=== PATIENT | male | born 1950 | race Caucasian/White ===

== ENCOUNTER → 2021-09-07 14:39 | Outpatient (BNVA) | payer MEDICARE, SELFPAY | PROVIDERS: PCP Nurse Practitioner Family; Referring Provider Nurse Practitioner Family; Visit Provider Internal Medicine Cardiovascular Disease | DX: I50.20 Unspecified systolic (congestive) heart failure (principal); I25.10 Atherosclerotic heart disease of native coronary artery without angina pectoris; Z95.810 Presence of automatic (implantable) cardiac defibrillator | CPT/HCPCS: 93005; 99202 ==

== ENCOUNTER 2021-09-08 08:16 | Outpatient (REF) | payer MEDICARE, SELFPAY ==
--- NOTE | ~2021-09-08 | XR_ITS ---
EXAMINATION: XR CHEST 2 VIEWS CLINICAL INFORMATION: Status post-post AICD placement. COMPARISON: Chest radiographs dated 04/10/2017 and 03/12/2017. TECHNIQUE: Frontal and lateral views of the chest were obtained. FINDINGS: The heart, great vessels and mediastinum are normal. Central pulmonary vasculature appears stable. There is interim placement of a dual-lead, dual-chamber pacemaker/defibrillator, without lead fracture noted. The lungs show no focal infiltrate, effusion or pneumothorax. There is no acute osseous abnormality. Orthopedic anchors are applied to the bilateral humeral heads. XR/XR chest 2V IMPRESSION: No active cardiopulmonary disease. No pneumothorax is seen status-post AICD placement.
[2021-09-08 09:15] LABS: Hematocrit 39.2 % (42.0-52.0); Hemoglobin 12.8 g/dl (14.0-18.0); Mean Corpuscular HGB Conc 32.7 g/dl (31.0-36.0); Platelet Count 135 X10*3/uL (160-400); Red Blood Count 4.26 X10*6/uL (4.60-5.80); Red Cell Distribution Width 13.1 % (11.0-16.0); White Blood Count 6.2 X10*3/uL (4.8-10.8)
[2021-09-08 09:35] LABS: Anion Gap 12 (12-20); Blood Urea Nitrogen 31 mg/dL (9-16); Calcium 9.5 mg/dL (8.4-10.2); Carbon Dioxide 30 mmol/L (22-29); Chloride 105 mmol/L (96-108); Cholesterol 101 mg/dL; Estimated Glomerular Filt Rate 58; Glucose Random 116 mg/dL (60-115); HDL Cholesterol 26 mg/dL; LDL Cholesterol Calculated 46 mg/dl; Magnesium 2.4 mg/dL (1.6-2.6); Potassium 4.1 mmol/L (3.3-5.1); Sodium 143 mmol/L (135-145); Triglycerides 146 mg/dL
[2021-09-08 09:45] LABS: B Type Natriuretic Peptide 394 pg/mL (<100)
[2021-09-08 09:57] LABS: Prostate Specific Antigen Scr 1.35 ng/mL (<0.05-4.0)
[2021-09-08 10:11] LABS: Appearance Urine CLEAR; Color Urine YELLOW; Glucose Urine UA NEG (NEG); Leukocyte Esterase Urine NEG (NEG); Nitrite Urine NEG (NEG); Urine Blood NEG (NEG); Urine Ketones NEG (NEG); Urine Protein NEG (NEG-TRACE)
== END 2021-09-08 08:17 | disposition home or self-care (01) ==
LOC: HO.LAB 08:16
PROVIDERS: PCP Nurse Practitioner Family; Visit Provider Internal Medicine Cardiovascular Disease
DX: Z12.5 Encounter for screening for malignant neoplasm of prostate (principal); I11.0 Hypertensive heart disease with heart failure; I50.40 Unspecified combined systolic (congestive) and diastolic (congestive) heart failure; I25.10 Atherosclerotic heart disease of native coronary artery without angina pectoris; Z95.810 Presence of automatic (implantable) cardiac defibrillator
CPT/HCPCS: 36415; 71046; 80048; 80061; 81003; 83735; 83880; 84153; 84443; 85027

== ENCOUNTER → 2021-10-07 14:58 | Outpatient (REF) | payer MEDICARE, SELFPAY ==
--- NOTE | 2021-10-07 15:04 | CA_ITS ---
Transthoracic Echocardiogram Amended Patient (Last, First, Middle): Kevin Aguero, Gender: Male Date of : 1950 Age: 70 Procedure Date: 10/07/2021 Procedure Type: Transthoracic Echocardiogram Location: OP Height: 180.34 cm Weight: 98.88 kg BSA: 2.19 m2 Heart Rate: bpm BP: 122 / 60 mmHg Observatory Director: Referring MD: Mark Jules MD Log Buyer: Mark Jules MD Symptoms: I50.20 - Unspecified systolic (congestive) heart failure Study Quality: Fair/DEFINITY USED ECG Rhythm: Sinus Conclusions: - 1. Severe LV systolic dysfunction with LVEF of 20-25% with mildly dilated left ventricle cavity with grade 3 diastolic dysfunction with underlying regional wall motion abnormality suggestive ischemic cardiomyopathy 2. Moderately dilated left atrium 3. Moderate mitral regurgitation 4. Normal RV systolic pressure 5. No pericardial effusion Findings Procedure Information Contrast agent, definity, is being given per protocol without apparent complications. Left Ventricle Mildly increased left ventricular cavity size. There is normal left ventricular wall thickness. The left ventricular systolic function is severely decreased. The visually estimated ejection fraction is between 20 25%. Spectral Doppler is indicative of a restrictive filling pattern. E/E prime ratio is >15, consistent with elevated filling pressures. Evidence suggests grade III (severe) diastolic dysfunction. Wall Motion Rest Echo Findings The entire lateral wall, the basal inferior, basal anterior, mid anterior, and mid inferior segments are hypokinetic. The entire septum, the apical anterior, and apical inferior segments are akinetic. The apex segment is dyskinetic. Right Ventricle Normal right ventricular cavity size and systolic function. There is an ICD wire seen in the right ventricle. Atria The left atrium is moderately dilated. Interatrial shunt cannot be excluded. The right atrium is mildly dilated. Aortic Valve There is mild calcification of the aortic valve. There is mild thickening of the aortic valve. There is no aortic valve stenosis. There is trace (trivial) aortic valve regurgitation. Mitral Valve There is mild anterior and posterior mitral leaflet thickening. There is moderate mitral valve regurgitation. There is no mitral valve stenosis. There is mild mitral annular dilatation. Pulmonic Valve The pulmonic valve was not well visualized. Tricuspid Valve Likely normal tricuspid valve structure and function. There is mild tricuspid valve regurgitation. The right ventricular systolic pressure is normal. There is no evidence of pulmonary hypertension. Great Vessels All visible segments of the aorta are normal in size. The pulmonary artery was not well visualized. Venous The inferior vena cava is normal in size and collapses greater than 50% with inspiration. Pericardium/Pleural There is no evidence of pericardial effusion. Prior Study Comparison No prior study available for comparison. Measurements 2D Linear Measurements IVSd: 0.83 0.6-0.9/0.6-1.0 cm LVIDd: 6.11 3.9-5.3/4.2-5.9 cm LVIDd Index: 2.79 2.4-3.2/2.2-3.1 cm/m2 LVIDs: 4.84 2.0-3.6 cm LVPWd: 0.87 0.7-1.1 cm Ao Root: 3.00 2.1-3.5 cm LA Diam: 5.40 2.7-3.8/3.0-4.0 cm LAIDs Index: 2.47 1.5-2.3 cm/m2 LV Mass: 258.59 67-162/88-224 g LV Mass Index: 118.08 43-95/49-115 g/m2 LVOT Diam: 2.40 3.0+(-)1.3 cm 2D Volumes LA Vol: 65.80 2D Systolic Function EF 4C: 22.40 >55% EF 2C: 21.30 >55% EF BiP: 22.10 >55% Mitral Valve MV Pk E: 0.85 MV Decel Time: 260.00 E'Lateral: 8.70 E'Medial: 4.24 E/E' Med: 20.10 E/E' Lat: 9.80 PHT: 76.00 MVA PHT: 2.89 Decel [place]: 3.28 Aortic Valve AoV Pk [place]: 2.09 AoV Mn [place]: 1.18 AoV VTI: 0.36 AoV Pk Grad: 17.00 Aov Mn Grad: 7.00 ALYSSA Cont.VTI: 2.10 LVOT LVOT Pk [place]: 0.82 LVOT Mn [place]: 0.50 LVOT VTI: 0.17 LVOT Pk Grad: 3.00 LVOT Mn Grad: 1.00 LVOT Diam: 2.40 LVOT Area: 4.52 Diastolic Function MV Pk E: 0.85 E'Medial: 4.24 E/E' Med: 20.10 E' Laterial: 8.70 E/E' Lat: 9.80 Right Ventricle TAPSE (mm): 17.00 Tricuspid Valve TR Pk [place]: 2.94 TR Pk Grad: 35.00 RA Press: 3.00 RVSP: 38.00 Great Vessels Aorta Ao Root-2D: 3.00 2.0-3.7 cm Sinus of Valsalva: 3.00 2.0-3.5 cm Pulmonary Valve PV Pk [place]: 0.98 Peak PV Grad: 4.00 Updated in Other Vendor System with Status of Final Mark Jules MD electronically signed on 10/16/2021 2:29:18 PM with status of Final
== END ==
LOC: HO.CARD 14:58
PROVIDERS: PCP Nurse Practitioner Family; Visit Provider Internal Medicine Cardiovascular Disease
DX: I50.20 Unspecified systolic (congestive) heart failure (principal)
CPT/HCPCS: 93306; Q9957

== ENCOUNTER → 2021-10-16 10:23 | Outpatient (BNVA) | payer MEDICARE, SELFPAY | PROVIDERS: PCP Nurse Practitioner Family; Referring Provider Nurse Practitioner Family; Visit Provider Internal Medicine Cardiovascular Disease | DX: Z45.02 Encounter for adjustment and management of automatic implantable cardiac defibrillator (principal); I50.20 Unspecified systolic (congestive) heart failure; I25.10 Atherosclerotic heart disease of native coronary artery without angina pectoris | CPT/HCPCS: 99212 ==

== ENCOUNTER 2021-11-02 12:42 | Outpatient (REF) | payer MEDICARE, SELFPAY ==
[2021-11-02 14:08] LABS: Anion Gap 13 (12-20); Blood Urea Nitrogen 24 mg/dL (9-16); Calcium 9.8 mg/dL (8.4-10.2); Carbon Dioxide 24 mmol/L (22-29); Chloride 107 mmol/L (96-108); Estimated Glomerular Filt Rate 47; Glucose Random 111 mg/dL (60-115); Potassium 4.4 mmol/L (3.3-5.1); Sodium 140 mmol/L (135-145)
== END 2021-11-02 12:43 | disposition home or self-care (01) ==
LOC: HO.HMGCLDS 12:42
PROVIDERS: Absent Provider Internal Medicine Cardiovascular Disease; PCP Nurse Practitioner Family; Visit Provider Nurse Practitioner Family
DX: I50.20 Unspecified systolic (congestive) heart failure (principal)
CPT/HCPCS: 36415; 80048

== ENCOUNTER 2022-01-01 13:44 | Outpatient (REF) | payer MEDICARE, SELFPAY ==
--- NOTE | ~2022-01-01 | XR_ITS ---
EXAMINATION: XR KNEE, RIGHT CLINICAL INFORMATION: M25.561 - Pain in right knee COMPARISON: Standing AP knees and left knee radiographs 08/04/2015. TECHNIQUE: Four views of the right knee. FINDINGS: No fracture, dislocation, or definite effusion. No destructive process. Hoffa's fat pad appears normal. No significant joint narrowing and no erosive change or chondrocalcinosis. No lateralization or tilting patella. XR/XR knee RT 3V IMPRESSION: -No significant joint narrowing. No erosive change or chondrocalcinosis.
== END 2022-01-01 13:45 | disposition home or self-care (01) ==
LOC: HO.XRAY 13:44
PROVIDERS: PCP Nurse Practitioner Family; Visit Provider Nurse Practitioner Family
DX: M25.561 Pain in right knee (principal)
CPT/HCPCS: 73562

== ENCOUNTER 2022-05-05 12:04 | Outpatient (REF) | payer MEDICARE, SELFPAY ==
[2022-05-05 13:39] LABS: B Type Natriuretic Peptide 175 pg/mL (<100)
[2022-05-05 13:43] LABS: Anion Gap 17 (12-20); Blood Urea Nitrogen 27 mg/dL (9-16); Calcium 9.8 mg/dL (8.4-10.2); Carbon Dioxide 26 mmol/L (22-29); Chloride 103 mmol/L (96-108); Estimated Glomerular Filt Rate 45; Glucose Random 111 mg/dL (60-115); Sodium 141 mmol/L (135-145)
== END 2022-05-05 12:05 | disposition home or self-care (01) ==
LOC: HO.LAB 12:04
PROVIDERS: PCP Nurse Practitioner Family; Visit Provider Internal Medicine Cardiovascular Disease
DX: I48.0 Paroxysmal atrial fibrillation (principal); I50.20 Unspecified systolic (congestive) heart failure; I25.10 Atherosclerotic heart disease of native coronary artery without angina pectoris; Z95.810 Presence of automatic (implantable) cardiac defibrillator
CPT/HCPCS: 36415; 80048; 83880; 99212

== ENCOUNTER 2022-05-10 10:59 | Outpatient (REF) | payer MEDICARE, SELFPAY ==
[2022-05-10 14:01] LABS: MANUAL DIFF FLAG NO
[2022-05-10 14:07] LABS: Basophils Percent Auto 0.8 % (0-2); Eosinophils Absolute Auto 0.1 X10*3/uL (0.0-0.4); Eosinophils Percent Auto 2.7 % (0-4); Hematocrit 41.7 % (42.0-52.0); Hemoglobin 13.8 g/dl (14.0-18.0); Imm Gran Abs Auto 0.09 X10*3/uL (0.00-0.03); Imm Gran Pct Auto 1.8 % (0.0-0.4); Lymphocytes Absolute Auto 1.2 X10*3/uL (1.2-4.9); Lymphocytes Percent Auto 23.6 % (20-40); Mean Corpuscular HGB Conc 33.1 g/dl (31.0-36.0); Mean Corpuscular Hemoglobin 30.2 pg (27.0-33.0); Mean Corpuscular Volume 91.2 fL (80.0-98.0); Mean Platelet Volume 11.4 fL (9.4-12.4); Monocytes Absolute Auto 0.9 X10*3/uL (0.1-1.2); Monocytes Percent Auto 18.7 % (2-11); Neutrophils Absolute Auto 2.6 x10*3/uL (2.0-8.3); Neutrophils Percent Auto 52.4 % (45-73); Platelet Count 115 X10*3/uL (160-400); Red Blood Count 4.57 X10*6/uL (4.60-5.80); Red Cell Distribution Width 13.4 % (11.0-16.0); White Blood Count 4.9 X10*3/uL (4.8-10.8)
[2022-05-10 14:11] LABS: Appearance Urine Clear; Glucose Urine UA Negative (Negative); Leukocyte Esterase Urine Negative (Negative); Nitrite Urine Negative (Negative); PH 5.5 (5.0-9.0); Urine Blood Negative (Negative); Urine Ketones Negative (Negative); Urine Protein Negative (Neg-Trace)
[2022-05-10 14:13] LABS: Color Urine COLORLESS
[2022-05-10 14:26] LABS: Alanine Aminotransferase 17 U/L (0-40); Albumin Level 4.5 g/dL (3.5-5.0); Alkaline Phosphatase 44 U/L (39-117); Anion Gap 16 (12-20); Aspartate Amino Transferase 16 U/L (5-37); Bilirubin Total 0.7 mg/dL (0.0-1.0); Blood Urea Nitrogen 31 mg/dL (9-16); Calcium 9.1 mg/dL (8.4-10.2); Carbon Dioxide 24 mmol/L (22-29); Chloride 106 mmol/L (96-108); Cholesterol 101 mg/dL; Estimated Glomerular Filt Rate 49; Glucose Fasting 124 mg/dL (60-99); HDL Cholesterol 28 mg/dL; LDL Cholesterol Calculated 40 mg/dl; Potassium 4.2 mmol/L (3.3-5.1); Sodium 142 mmol/L (135-145); Total Protein 7.2 g/dL (6.5-8.0); Triglycerides 168 mg/dL
[2022-05-10 14:47] LABS: TSH reflex Free T4 0.72 uIU/mL (0.32-4.0)
== END 2022-05-10 11:00 | disposition home or self-care (01) ==
LOC: HO.HMGCLDS 10:59
PROVIDERS: PCP Nurse Practitioner Family; Visit Provider Nurse Practitioner Family
DX: I10 Essential (primary) hypertension (principal)
CPT/HCPCS: 36415; 80053; 80061; 81003; 84443; 85025

== ENCOUNTER → 2022-11-08 12:14 | Outpatient (BNVA) | payer MEDICARE, SELFPAY | PROVIDERS: PCP Nurse Practitioner Family; Referring Provider Nurse Practitioner Family; Visit Provider Internal Medicine Cardiovascular Disease | DX: I50.20 Unspecified systolic (congestive) heart failure (principal); I48.0 Paroxysmal atrial fibrillation; I25.10 Atherosclerotic heart disease of native coronary artery without angina pectoris; Z45.02 Encounter for adjustment and management of automatic implantable cardiac defibrillator | CPT/HCPCS: 93005; 99212 ==

== ENCOUNTER → 2022-11-19 13:45 | Outpatient (REF) | payer MEDICARE, SELFPAY ==
--- NOTE | 2022-11-19 13:48 | CA_ITS ---
Transthoracic Echocardiogram Patient (Last, First, Middle): Kevin Aguero, Gender: Male Date of : 1950 Age: 72 Procedure Date: 11/19/2022 Procedure Type: Transthoracic Echocardiogram Location: OP Height: 182.88 cm Weight: 97.98 kg BSA: 2.20 m2 Heart Rate: 73 bpm BP: 118 / 70 mmHg Patching Machine Operator: SB Referring MD: Mark Jules MD Symptoms: I50.20 - Unspecified systolic (congestive) heart failure Study Quality: Adequate w contrast ECG Rhythm: Sinus Conclusions: - Mildly increased left ventricular cavity size. There is normal left ventricular wall thickness. The left ventricular systolic function is severely decreased. The visually estimated ejection fraction is between 15-20%. There is severe global hypokinesis. - Normal right ventricular cavity size. There is borderline right ventricular systolic function. - The left atrium is severely dilated. - There is mild to moderate mitral valve regurgitation. Findings Procedure Information Contrast agent, definity, is being given per protocol without apparent complications. Left Ventricle Mildly increased left ventricular cavity size. There is normal left ventricular wall thickness. The left ventricular systolic function is severely decreased. The visually estimated ejection fraction is between 15 20%. There is severe global hypokinesis. Abnormal diastolic function is noted. Spectral Doppler is indicative of a restrictive filling pattern. Elevated filling pressures. Right Ventricle Normal right ventricular cavity size. There is borderline right ventricular systolic function. There is a pacemaker wire seen in the right ventricle. Atria The left atrium is severely dilated. The right atrium is likely dilated. Aortic Valve There is a normal trileaflet aortic valve. There is mild calcification of the aortic valve. There is no aortic valve stenosis. There is trace (trivial) aortic valve regurgitation. Mitral Valve Normal mitral valve structure and function. There is mild to moderate mitral valve regurgitation. There is no mitral valve stenosis. Pulmonic Valve There is trace pulmonic valve regurgitation. Tricuspid Valve Normal tricuspid valve structure and function. There is no evidence of pulmonary hypertension. Great Vessels All visible segments of the aorta are normal in size. The visualized portions of the pulmonary artery and branches are normal. Venous The inferior vena cava is normal in size and collapses greater than 50% with inspiration. Pericardium/Pleural There is no evidence of pericardial effusion. Prior Study Comparison Changes noted compared to prior study dated: 10/07/2021. EF 15-20%, Borderline RV dysfunction, severely dilated LA. Measurements 2D Linear Measurements IVSd: 0.79 0.6-0.9/0.6-1.0 cm LVIDd: 6.43 3.9-5.3/4.2-5.9 cm LVIDd Index: 2.92 2.4-3.2/2.2-3.1 cm/m2 LVIDs: 5.63 2.0-3.6 cm LVPWd: 0.80 0.7-1.1 cm LA Diam: 5.10 2.7-3.8/3.0-4.0 cm LAIDs Index: 2.32 1.5-2.3 cm/m2 LV Mass: 260.20 67-162/88-224 g LV Mass Index: 118.27 43-95/49-115 g/m2 LVOT Diam: 2.30 3.0+(-)1.3 cm 2D Systolic Function EF 4C: 33.80 >55% EF 2C: 16.40 >55% EF BiP: 27.20 >55% Mitral Valve MV Pk E: 0.87 MV PK A: 0.35 MV Decel Time: 146.00 E/A: 2.50 E'Lateral: 8.10 E'Medial: 3.75 E/E' Med: 23.10 E/E' Lat: 10.70 PHT: 43.00 MVA PHT: 5.12 Decel [place]: 5.91 Aortic Valve AoV Pk [place]: 1.74 AoV Mn [place]: 1.29 AoV VTI: 0.35 AoV Pk Grad: 12.00 Aov Mn Grad: 8.00 ALYSSA Cont.VTI: 2.25 LVOT LVOT Pk [place]: 1.05 LVOT Mn [place]: 0.69 LVOT VTI: 0.19 LVOT Pk Grad: 4.00 LVOT Mn Grad: 2.00 LVOT Diam: 2.30 LVOT Area: 4.15 Diastolic Function MV Pk E: 0.87 MV Pk A: 0.35 E/A: 2.50 E'Medial: 3.75 E/E' Med: 23.10 E' Laterial: 8.10 E/E' Lat: 10.70 Right Ventricle TAPSE (mm): 16.50 TVS' [place]: 11.30 Tricuspid Valve TR Pk [place]: 2.88 TR Pk Grad: 33.00 RA Press: 3.00 RVSP: 36.00 Great Vessels Aorta Sinus of Valsalva: 2.80 2.0-3.5 cm Ao Asc: 3.30 2.1-3.4 cm Pulmonary Veins Pulm Vein S/D 1.80 Pulmonary Valve PV Pk [place]: 0.92 Peak PV Grad: 3.00 Updated in Other Vendor System with Status of Final Óscar Pacheco MD electronically signed on 11/21/2022 8:30:45 PM with status of Final
== END ==
LOC: HO.CARD 13:45
PROVIDERS: PCP Nurse Practitioner Family; Visit Provider Internal Medicine Cardiovascular Disease
DX: I50.20 Unspecified systolic (congestive) heart failure (principal)
CPT/HCPCS: 93306; Q9957

== ENCOUNTER → 2023-01-23 23:59 | Outpatient (BNV) | payer MEDICARE, SELFPAY ==
--- NOTE | 2023-02-02 15:00 | A.OFFVIS_ITS ---
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, major, in remission Fatty liver GERD (gastroesophageal reflux disease) Hypothyroid ICD (implantable cardioverter-defibrillator) in place Macular degeneration of right eye Metal foreign body in lower leg Myocardial infarct Paroxysmal atrial fibrillation Systolic CHF Thrombocytopenia Social History [facility] Patient Tobacco Use Status: Former Tobacco user Years Smoked: quit 40 years ago e-Cigarette/Vaping Use: Never Used Second Hand Smoke Exposure: No service: No Current occupational status: retired Cognitive needs: No Hearing needs: No Vision needs: No Office Procedures Cardiac Device Check Cardiac Device Check Details: Remote ICD report generated 01/23/2023. ICD function is adequate [id number] Cardiac Interrogation, implant defibrillator w/interim Procedure code (CPT) selection complete Coding Level of Care Code Procedure Only Diagnoses CPT Codes Cardiac Device Check - Cardiac Device 13: [id number] Cardiac Interrogation, implant defibrillator w/interim ([id number])
== END ==
PROVIDERS: PCP Nurse Practitioner Family; Visit Provider Internal Medicine Cardiovascular Disease
DX: I48.0 Paroxysmal atrial fibrillation (principal); Z95.810 Presence of automatic (implantable) cardiac defibrillator
CPT/HCPCS: 93295

== ENCOUNTER → 2023-02-02 13:25 | Outpatient (BNVA) | payer MEDICARE, SELFPAY | PROVIDERS: PCP Nurse Practitioner Family; Visit Provider Nurse Practitioner Family ==

== ENCOUNTER 2023-03-16 13:23 | Outpatient (AMB) | payer MEDICARE, SELFPAY ==
[2023-03-16 13:31] VITALS: BP 98/62; PULSE 64; O2SAT 97
--- NOTE | 2023-03-16 13:31 | AM.OFFVISMDC ---
Intake Vital Signs 03/16/23 13:31 Height 6 ft 0.5 in Weight 224 lb 6 oz BMI 30.0 BP 98/62 Blood Pressure Location Lt brachial Position Sitting Pulse 64 Pulse Source Pulse Oximeter Pulse Oximetry (%) 97 Oxygen Delivery Method Room Air Intake Visit Reasons: AWV G0438 Allergies No Known Allergies Allergy (Verified 03/16/23 13:33) HPI AWV G0438 HPI Details Pt is here for an AWV. Denies fever, chills, and dizziness. [place] of care in scan pile. PPP will be scanned in chart and copy will be given to pt. 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, major, in remission Fatty liver GERD (gastroesophageal reflux disease) Hypothyroid ICD (implantable cardioverter-defibrillator) in place Macular degeneration of right eye Metal foreign body in lower leg Myocardial infarct Paroxysmal atrial fibrillation Systolic CHF Thrombocytopenia Social History Housing: Condominium Patient Tobacco Use Status: Former Tobacco user Years Smoked: quit 40 years ago e-Cigarette/Vaping Use: Never Used Second Hand Smoke Exposure: No service: No Current occupational status: retired Cognitive needs: No Hearing needs: No Vision needs: No Questionnaire Medicare Wellness Checkup [age] What gender do you identify with?: male During the past 4 weeks, how much have you been bothered by emotional problems such as feeling anxious, depressed, irritable, sad or downhearted, and blue?: not at all During the past 4 weeks, has your physical & emotional health limited your social activities with family, friends, neighbors, or groups?: not at all During the past 4 weeks, how much bodily pain have you generally had?: no pain During the past 4 weeks, was someone available to help you if you needed & wanted help?: yes, as much as I wanted During the past 4 weeks, what was the hardest physical activity you could do for at least 2 minutes?: very heavy Can you get to places out of walking distance without help? (For eg., can you travel alone on buses, taxis or drive your car?): Yes Can you go shopping for groceries or clothes without someone's help?: Yes Can you prepare your own meals?: Yes Can you do your housework without help?: Yes Because of any health problems, do you need the help of another person with your personal care needs such as eating, bathing, dressing or getting around the house?: No Can you handle your own money without help?: Yes During the past 4 weeks, how would you rate your health in general?: very good During the past 4 weeks how have things been going for you?: very well; could hardly better Are you having difficulties driving your car?: yes, often Do you always fasten your seat belt when you are in a car?: yes, usually During past 4 weeks, have you been bothered by the following: never: Falling or dizzy when standing up, Sexual problems?, Trouble eating well?, Teeth or denture problems?, Problems using the telephone? and Tiredness or fatigue? Have you fallen 2 or more times in the past year?: No Are you afraid of falling?: No Are you a smoker?: no During the past 4 weeks, how many drinks of wine, beer, or other alcoholic beverages did you have?: no alcohol at all Do you exercise for about 20 minutes 3 or more times a week?: no, I usually do not exercise this much Have you been given information to help with the following?: no: Hazards in your house that might hurt you? and no: Keeping track of your medications? How often do you have trouble taking medicines the way you have been told to take them?: I always take medicine as prescribed How confident are you that you can control & manage most of your health problems?: very confident What is your race?: White Mini Mental State Exam (MMSE) Orientation What is the (year) (season) (date) (day) (month)?: year (2022) Where are we (state) (county) (town or city) (hospital) (floor[place] Registration Name of 3 unrelated objects clearly and slowly, then ask patient to repeat all 3 of them. (1st repeat determines score. Make sure they can repeat all three): object 1, object 2 and object 3 Attention & Calculation (CHOOSE ONE) Spell WORLD backwards (DLROW): 5 letters Recall Ask patient to repeat the 3 items from question #3.: object 1, object 2 and object 3 Language Show patient a wristwatch & ask what it is. Repeat for pencil.: watch and pencil Ask the patient to repeat the phrase 'No ifs, ands, or buts' after you.: correct Ask the patient to 'take a piece of paper with their right hand' 'fold paper in half' 'place paper on floor': take paper in right hand, fold paper in half and place paper on floor Print the sentence 'CLOSE YOUR EYES' on a piece. If patient actually closes eyes then score.: followed written direction Give patient a blank piece of paper & ask to write a sentence. Score if it contains a noun & verb.: sentence contains subject and verb Ask patient to copy figure of intersecting pentagons exactly. Score if all 10 angles & 2 intersects are included.: all 10 angles present & 2 are intersected Score Score: 22 Activity of Daily Living Bathing - sponge bath, tub bath or shower: receives no assistance (gets in/out by self, if usual bathing means Dressing - getting clothes from closets & drawers, including inner/outer garments & fasteners.: gets clothes & gets completely dressed without help Toileting - going to the 'toilet room' for urine/bowel elimination & cleaning self/arranging clothes: goes to toilet room, cleans self, arranges clothes without help Transfer: moves in & out of bed and chair without help (may use support object) Continence: controls urination/bowel movements completely by self Feeding: feeds self without help Total Score: 0 Information obtained from: patient Using telephone: independent Traveling: independent Shopping: independent Preparing meals: independent Housework: independent Taking medicine: independent Managing money: independent PHQ-9 Over the last 2 weeks, how often have you been bothered by any of the following problems? 1. Little interest or pleasure in doing things: not at all 2. Feeling down, depressed, or hopeless: not at all 3. Trouble falling or staying asleep, or sleeping too much: not at all 4. Feeling tired or having little energy: not at all 5. Poor appetite or overeating: not at all 6. Feeling bad about yourself - or that you are a failure or have let yourself or your family down: not at all 7. Trouble concentrating on things, such as reading the newspaper or watching television: not at all 8. Moving or speaking so slowly that other people could have noticed. Or the opposite - being so fidgety or restless that you have been moving around a lot more than usual: not at all 9. Thoughts that you would be better off or of hurting yourself in some way: not at all Total score: 0 Depression Screening Interpretation: Negative 56967 - PHQ-9 Billing: Yes Source: Developed by Drs. Kevin Castaneda, Sofya Eastman, Rj Clemens and colleagues, with an educational kimi from [employer]. Review of Systems Const Reports as per HPI Physical Exam Vital Signs: Last Vital Signs Pulse 64 03/16/23 13:31 BP 98/62 03/16/23 13:31 Pulse Ox 97 03/16/23 13:31 Oxygen Delivery Method Room Air 03/16/23 13:31 BMI result Body Mass Index 30.0 Const General: cooperative Orientation/consciousness: patient oriented x3 Neuro Other: - romberg, unable to tandem walk, can walk and turn, can rise from sitting to standing, passed whisper test General: patient oriented x3 Psych Appearance: grossly normal Mental Status: mental status grossly normal Speech and movement: Normal speech and movement present Affect: normal affect Attitude: cooperative Thought process: Normal thought process present Thought content: Normal thought content present Insight: Good insight present (Psych) Judgement: Good judgement present (Psych) Assessment & Plan Assessment & Plan (1) Hearing loss: Code(s): H91.90 - Unspecified hearing loss, unspecified ear (2) Encounter for annual wellness visit (AWV) in Medicare patient: Code(s): Z00.00 - Encounter for general adult medical examination without abnormal findings Plan The patient agreed to the use of a medical office professional instructor for this encounter. Scribed for RENEE Whalen by Becca Kim medical office professional instructor, on 03/16/2023 at 13:40 EST. Orders: Referrals Speech and Hearing Referral H91.90 - Unspecified hearing loss, unspecified ear Quality Reporting (2019) Adult ([facility] 138/08/25/68) Smoking risk assessment performed?: Yes Patient Tobacco Use Status: Former Tobacco user Depression screening performed: Yes Systolic BP not done?: No Diastolic BP not done?: No Depression/Bipolar (159/160/161/177) PHQ-9: Total score: 0 Coding Level of Care Code Medicare First (G0438) Diagnoses Hearing loss H91.90 Encounter for annual wellness visit (AWV) in Medicare patient Z00.00 Advance Care Planning Forms completed: Health Care Proxy (done), MOLST (filled out) and Living will (pt has done)
== END 2023-03-16 14:30 | disposition home or self-care (01) ==
PROVIDERS: Visit Provider Nurse Practitioner Family
DX: Z00.00 Encounter for general adult medical examination without abnormal findings (principal)
CPT/HCPCS: G0438; G0439

== ENCOUNTER 2023-04-09 13:06 | Inpatient (IN) | payer MEDICARE, SELFPAY ==
[2023-04-09] VITALS (9 sets, daily range): BP systolic 85–116; BP diastolic 49–64; PULSE 60–94; RESP 12–19; TEMP 36.1–36.8; O2SAT 95–99; BMI 30.2
--- NOTE | 2023-04-09 13:32 | ED.DIZZY ---
HPI - Dizziness General Chief Complaint: Syncope Stated Complaint: dizzy/ weakness Time Seen by Provider: 04/09/23 16:23 Source: patient and family Mode of arrival: ambulatory Limitations: no limitations History of Present Illness HPI Narrative: 72 yo male with history of PAF on Eliquis, HFrEF s/p AICD, HTN, who presents to the ER for evaluation of dizziness that started this morning when he woke up. He went back to bed but no improvement. Later in the kitchen he was trying to blow his nose when he woke up on the floor. Unable to get BP at home, read error x4. Did not eat or take his BP pills yet today. He reports tailbone pain s/p the fall. Reports intermittent ongoing dizziness w/ position changes. Patient declined any weakness or numbness. Related Data Home Medications Medication Instructions Recorded Confirmed furosemide 20 mg tablet 30 mg PO DAILY 11/08/22 11/08/22 docusate sodium 100 mg capsule 100 mg PO BEDTIME PRN 03/16/23 Previous Rx's Medication Instructions Recorded mirtazapine 15 mg tablet 15 mg PO BEDTIME 90 days #90 tabs 07/29/21 betamethasone dipropionate 0.05 % 1 appl topical BID PRN skin 02/17/22 topical cream irritation #45 grams metoprolol succinate 25 mg 25 mg PO DAILY 90 days #90 tabs 06/18/22 tablet,extended release 24 hr sacubitril 49 mg-valsartan 51 mg 1 tab PO BID 90 days #180 tabs 08/25/22 tablet (Entresto) omeprazole 20 mg capsule,delayed 20 mg PO DAILY 90 days #90 caps 08/30/22 release spironolactone 25 mg tablet 12.5 mg (1/2 x 25 mg) PO DAILY 90 09/15/22 days #45 tabs apixaban 5 mg tablet (Eliquis) 5 mg PO BID #60 tabs 11/08/22 tamsulosin 0.4 mg capsule 0.4 mg PO BEDTIME 90 days #90 caps 11/12/22 sertraline 100 mg tablet 150 mg (1.5 x 100 mg) PO DAILY 90 01/21/23 days #135 tabs bisacodyl 5 mg tablet,delayed 10 mg (2 x 5 mg) PO ONCE 1 day #2 02/02/23 release (Dulcolax (bisacodyl)) tabs polyethylene glycol 3350 17 238 g PO ONCE #238 grams 02/02/23 gram/dose oral powder (Miralax) atorvastatin 80 mg tablet 80 mg PO BEDTIME 90 days #90 tabs 03/28/23 ezetimibe 10 mg tablet 10 mg PO DAILY 90 days #90 tabs 03/28/23 levothyroxine 125 mcg tablet 125 mcg PO DAILY 90 days #90 tabs 03/28/23 Allergies Allergy/AdvReac Type Severity Reaction Status Date / Time No Known Allergies Allergy Verified 04/09/23 13:31 Review of Systems Review of Systems: All other systems are reviewed and are negative Constitutional: Reports as per HPI and Reports no additional constitutional complaints Eyes: Reports as per HPI and Reports no additional eye complaints Reports system reviewed and no additional complaints, except as documented Cardiovascular: Reports as per HPI and Reports no additional cardiovascular complaints Respiratory: Reports as per HPI and Reports no additional respiratory complaints Gastrointestinal: Reports as per HPI and Reports no additional gastrointestinal complaints Genitourinary: Reports no additional female genitourinary complaints Musculoskeletal: Reports no additional musculoskeletal complaints Skin/Breast: Reports system reviewed and no additional complaints, except as docu Psychiatric: Reports no additional psychiatric complaints Endocrine: Reports no additional endocrine complaints Hematologic/Lymphatic: Reports no additional hematologic/lymphatic complaints Allergic/Immunologic: Reports no additional allergic/immunologic complaints Reports system reviewed and no additional complaints, except as documented and Reports Abnormal speech present [facility] Past Medical History Medical History Paroxysmal atrial fibrillation Thrombocytopenia Systolic CHF Fatty liver Macular degeneration of right eye ICD (implantable cardioverter-defibrillator) in place Hypothyroid GERD (gastroesophageal reflux disease) Depression, major, 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 Congenital bilateral renal cysts Chronic renal insufficiency, stage IV (severe) BPH (benign prostatic hyperplasia) ASHD (arteriosclerotic heart disease) Metal foreign body in lower leg Myocardial infarct Social History Social History [facility] Patient Tobacco Use Status: Former Tobacco user Years Smoked: quit 40 years ago Smoked in Last 30 Days: No e-Cigarette/Vaping Use: Never Used Second Hand Smoke Exposure: No Use of substances other than those prescribed or required for medical reasons: No Advance Directives: Yes Advance Directives on File: Yes Advance Directives Date on File: 03/16/23 service: No Current occupational status: retired Cognitive needs: No Hearing needs: No Vision needs: No Physical Exam Vital Signs: Vital Signs: Last Vital Signs Temp 98.1 F 04/09/23 14:04 Pulse 60 04/09/23 16:26 Resp 18 04/09/23 16:26 BP 105/59 L 04/09/23 16:26 Pulse Ox 96 04/09/23 16:26 O2 Del Method Room Air 04/09/23 16:26 O2 Flow Rate 2 04/09/23 16:10 BMI result Body Mass Index 30.2 Vital signs have been reviewed and appear to be correct. Blood pressure elevated. Heart rate normal. Respiratory rate normal. Temperature normal. Oxygen saturation normal. Appearance: Alert. Oriented X3. No acute distress. Head: Normal external exam. Normocephalic. Atraumatic. No Carvalho signs noted. No raccoon eyes noted Eyes: PERRLA. EOMI. Conjunctiva and sclera normal. Eyelids normal. ENT: TM's Normal. Pharynx normal. Uvula midline. Moist mucous membranes. No trismus noted. No drooling noted. No muffled voice noted. Neck: Normal inspection. Neck supple. FROM. No adenopathy. Thyroid Normal. No meningeal signs. No neck mass noted. CVS: Normal heart rate and rhythm. Heart sound normal. No murmurs noted. Pulses normal throughout. Respiratory: No respiratory distress. Painless inspiration. Breath sounds normal. No wheezes/rales/rhonchi noted. Chest nontender. No accessory muscle usage noted or decreased air movement noted. Abdomen: Soft and nontender. Bowel sounds normal in all 4 quadrants. No distention noted. No organomegaly noted. No visible injury noted. Back: No CVA tenderness. Full range of motion noted. Skin: Skin warm and dry. Normal skin color. Normal skin turgor. No rashes/lesions/lacerations noted. Extremities: No lower extremity edema. Extremities exhibit normal range of motion. Extremities nontender. Neuro: Oriented X 3. Cranial nerve exam: II-XII are grossly intact No motor deficit. No sensory deficit. Reflexes normal. NIH Stroke Scale Time: 17:10 Level of Consciousness: Alert Level of Consciousness Questions: Answers both questions correctly Level of Consciousness Commands: Performs both tasks correctly Best Gaze: Normal Visual: No visual loss Facial Palsy: Normal Motor Arm (Right): No drift Motor Arm (Left): No drift Motor Leg (Right): No drift Motor Leg (Left): No drift Limb Ataxia: Absent Sensory: Normal Best Language: No aphasia Dysarthia: Normal Extinction and Inattention: No abnormality Score: 0 Course Reevaluation(s) Reevaluation #1: a 72-year-old male came in for evaluation after having dizziness and syncopal episode at home. 1. Patient with paroxysmal AFib on Eliquis came in having vertigo/ dizziness followed by syncopal episode after blowing his nose symptoms started early this morning after he woke up from sleep, NIH score is 0, patient is orthostatic with significant drop of blood pressure. no other neurological deficit making acute stroke is not favorable and patient would not be a candidate for tPA because the anticoagulation therapy. 2. Patient with history of hypertension blood pressure at the low side and patient is orthostatic hypotensive will hydrate. 3. CT finding is concern of exophthalmos and thyroid problem TSH/ free T4 will be checked. 4. Admit to monitoring for further cardiac evaluation. Time: 17:12 Medical Decision Making Differential Diagnosis Differential Diagnoses: The differential diagnosis associated with the presentation includes ( Syncope, orthostatic hypotension, dehydration, dysrhythmia, severe anemia, electrolyte abnormality.) Admission/Observation Consideration of admission/observation: Escalation of care including admission/observation considered Consult Healthcare Provider Management of the patient was discussed with: Hospitalist ( Dr. chang) Lab Data MDM Lab Attestation statement: I reviewed the patient's lab results. 04/09/23 13:49 04/09/23 13:49 Labs: Lab Results 04/09/23 Range/Units 13:49 WBC 5.0 (4.8-10.8) X10*3/uL RBC 4.39 L (4.60-5.80) X10*6/uL Hgb 13.5 L (14.0-18.0) g/dl Hct 39.4 L (42.0-52.0) % MCV 89.7 (80.0-98.0) fL MCH 30.8 (27.0-33.0) pg MCHC 34.3 (31.0-36.0) g/dl RDW 13.4 (11.0-16.0) % Plt Count 114 L (160-400) X10*3/uL MPV 11.4 (9.4-12.4) fL Immature Gran % (Auto) 1.6 H (0.0-0.4) % Neut % (Auto) 60.4 (45-73) % Lymph % (Auto) 18.7 L (20-40) % [place] % (Auto) 16.9 H (2-11) % Eos % (Auto) 1.6 (0-4) % Baso % (Auto) 0.8 (0-2) % Lymph # (Auto) 0.9 L (1.2-4.9) X10*3/uL [place] # (Auto) 0.9 (0.1-1.2) X10*3/uL Eos # (Auto) 0.1 (0.0-0.4) X10*3/uL Baso # (Auto) 0.0 (0.0-0.2) X10*3/uL Abs Immat Gran (auto) 0.08 H (0.00-0.03) X10*3/uL Absolute Neuts (auto) 3.0 (2.0-8.3) x10*3/uL Absolute Nucleated RBC 0.000 (0.0-0.012) X10*3/uL Nucleated RBC % (auto) 0.0 (0.0-0.2) /100WBC PT 14.8 H (11.1-13.3) SEC INR 1.2 H (0.9-1.1) APTT 28.3 (26.0-36.4) SEC Sodium 143 (135-145) mmol/L Potassium 4.2 (3.3-5.1) mmol/L Chloride 109 H (96-108) mmol/L Carbon Dioxide 22 (22-29) mmol/L Anion Gap 16 (12-20) BUN 23 H (9-16) mg/dL Creatinine 1.51 H (0.5-1.4) mg/dL Estim Creat Clear Calc 52.7 Estimated GFR 45 Random Glucose 166 H (60-115) mg/dL Calcium 9.5 (8.4-10.2) mg/dL Magnesium 2.1 (1.6-2.6) mg/dL Total Bilirubin 0.9 (0.0-1.0) mg/dL Direct Bilirubin 0.3 (0.0-0.5) mg/dL AST 15 (5-37) U/L ALT 12 (0-40) U/L Alkaline Phosphatase 44 (39-117) U/L Troponin I High Sens 13.8 (<3.5-35.0) ng/L B-Natriuretic Peptide 265 H (<100) pg/mL Total Protein 7.0 (6.5-8.0) g/dL Albumin 4.4 (3.5-5.0) g/dL Independent Interpretation I performed an independent interpretation of an: EKG ( sinus rhythm at 60 beats per minute with PACs, normal intervals, no ST-T changes.), Plain X-Ray ( Chest / sacrum x-ray: No radiographic evidence of any displaced sacrococcygeal fracture identified.) and CT Scan ( Head/ C-spine CT:No acute intracranial findings. - No acute osseous findings within the cervical spine. - Diffuse enlargement of the extraocular muscles bilaterally which can be correlated with thyroid function tests to exclude thyroid orbitopathy.) Radiology Impression Discussion of test interpretation with radiology: I have reviewed the radiologist's reading. Chronic Conditions Patient?s care impacted by: Hypertension and Other ( Paroxysmal atrial fibrillation, chronic anticoagulation.) Discharge Plan Discharge Clinical Impression: Syncope and collapse Patient Disposition: Admitted As Inpatient
[2023-04-09 14:12] LABS: Alanine Aminotransferase 12 U/L (0-40); Albumin Level 4.4 g/dL (3.5-5.0); Alkaline Phosphatase 44 U/L (39-117); Anion Gap 16 (12-20); Aspartate Amino Transferase 15 U/L (5-37); Bilirubin Direct 0.3 mg/dL (0.0-0.5); Bilirubin Total 0.9 mg/dL (0.0-1.0); Blood Urea Nitrogen 23 mg/dL (9-16); Calcium 9.5 mg/dL (8.4-10.2); Carbon Dioxide 22 mmol/L (22-29); Chloride 109 mmol/L (96-108); Creatinine Clr Calc Pharmacy 52.7; Estimated Glomerular Filt Rate 45; Glucose Random 166 mg/dL (60-115); Magnesium 2.1 mg/dL (1.6-2.6); Potassium 4.2 mmol/L (3.3-5.1); Sodium 143 mmol/L (135-145)
--- NOTE | 2023-04-09 16:10 | PC.NURSE ---
pt sleeping at this time, right lower leg released ns on the monitor, pt saturations dropping down to 89% on room air so put on nasal cannusl at 2l 97% sitter at bedside
--- NOTE | 2023-04-09 16:30 | PC.NURSE ---
pt is alert and oriented, skin pwd, respirations even and unlabored, pt reports around 1030 pt started to feel dizzy-spning in circles while in his kitchen and next thing he knows is waking up on the kitchen floor, pt does take eliquis, denies feeling dizzy at this time, denies pain/chest pain/sob. all nuro intact, no visible facial droop, hand grasp strong and equal and no visible drift, ns on the monitor
--- NOTE | 2023-04-09 18:27 | PM.IMHP ---
History of Present Illness Date of Service: 04/09/23 Chief Complaint: syncope 72 yo male with history of PAF on Eliquis, HFrEF s/p AICD, HTN, who presents to the ER for evaluation of dizziness that started this morning when he woke up. He went back to bed but no improvement. Later in the kitchen he was trying to blow his nose when he woke up on the floor. Reports intermittent ongoing dizziness w/ position changes. States he has worsening problems with sinuses over the last several months. Denies fever chills. Workup in ER including CT of his head failed to demonstrate any pathology suggestive of his complaint. 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 Congenital bilateral renal cysts Chronic renal insufficiency, stage IV (severe) BPH (benign prostatic hyperplasia) ASHD (arteriosclerotic heart disease) Metal foreign body in lower leg Myocardial infarct Social History Housing: [facility] Patient Tobacco Use Status: Former Tobacco user Years Smoked: quit 40 years ago Smoked in Last 30 Days: No e-Cigarette/Vaping Use: Never Used Second Hand Smoke Exposure: No Use of substances other than those prescribed or required for medical reasons: No Advance Directives: Yes Advance Directives on File: Yes Advance Directives Date on File: 03/16/23 service: No Current occupational status: retired Cognitive needs: No Hearing needs: No Vision needs: No Meds Allergies Allergy/AdvReac Type Severity Reaction Status Date / Time No Known Allergies Allergy Verified 04/09/23 13:31 Active Medications: Current Medications Acetaminophen (Acetaminophen 325 Mg Tablet) 650 mg PO Q6H PRN PRN Reason: Pain, Mild (Pain Scale 1-3) Ondansetron HCl (Ondansetron Hcl 4 Mg/2 Ml Vial) 4 mg IVPUSH Q8H PRN PRN Reason: Nausea and Vomiting Sodium Chloride (0.9 % Sodium Chloride Flush 3 Ml Syringe) 3 [facility] Home Medications Medication Instructions Recorded Confirmed Last Taken Type furosemide 20 mg tablet 30 mg PO DAILY 11/08/22 04/09/23 04/08/23 History levothyroxine 125 mcg tablet 125 mcg PO DAILY@0600 04/09/23 04/09/23 04/08/23 History lsvfpkbc-cro-[id number] 250 mg-dha 90 1 cap PO DAILY 04/09/23 04/09/23 04/08/23 History mg-epa 160 qp-yqla-ycgk-zeax capsule (Ocuvite Adult 50 Plus) omeprazole 20 mg capsule,delayed 20 mg PO DAILY@0630 04/09/23 04/09/23 04/08/23 History release Physical Exam Vital Signs and Narrative: Vital Signs: Last Vital Signs Temp 98.1 F 04/09/23 14:04 Pulse 60 04/09/23 16:26 Resp 18 04/09/23 16:26 BP 105/59 L 04/09/23 16:26 Pulse Ox 96 04/09/23 16:26 O2 Del Method Room Air 04/09/23 16:26 BMI result Body Mass Index 30.2 Const: Other: awake alert oriented x3 no acute distress HEENT: Other: unable to visualize TMs secondary to bilateral cerumen impaction Neck: Other: no bruits appreciated Resp: Other: clear to auscultation bilaterally no rales rhonchi or wheezes Cardio: Other: no S4; positive S1-S2; no S3 murmurs rubs or gallops. Examines in normal sinus rhythm Neuro: Other: cranial nerves 2-12 grossly intact as tested. Motor 5/5 all extremities. Sensation intact. Gait not observed. Cognition appropriate. No nystagmus appreciated Extrem: Other: no edema bilaterally Results Labs 04/09/23 13:49 04/09/23 13:49 Labs: Laboratory Results - last 24 hr 04/09/23 04/09/23 04/09/23 13:49 17:10 17:24 MCV 89.7 MCH 30.8 MCHC 34.3 RDW 13.4 Plt Count 114 L MPV 11.4 Immature Gran % (Auto) 1.6 H Neut % (Auto) 60.4 Lymph % (Auto) 18.7 L [place] % (Auto) 16.9 H Eos % (Auto) 1.6 Baso % (Auto) 0.8 Lymph # (Auto) 0.9 L [place] # (Auto) 0.9 Eos # (Auto) 0.1 Baso # (Auto) 0.0 Abs Immat Gran (auto) 0.08 H Absolute Neuts (auto) 3.0 Absolute Nucleated RBC 0.000 Nucleated RBC % (auto) 0.0 PT 14.8 H INR 1.2 H APTT 28.3 Anion Gap 16 Estim Creat Clear Calc 52.7 Estimated GFR 45 Random Glucose 166 H Calcium 9.5 Magnesium 2.1 Total Bilirubin 0.9 Direct Bilirubin 0.3 AST 15 ALT 12 Alkaline Phosphatase 44 B-Natriuretic Peptide 265 H Total Protein 7.0 Albumin 4.4 TSH 0.84 Urine Color Yellow Urine Appearance Clear Urine pH 7.0 Ur Specific Tad 1.020 Urine Protein Trace Urine Glucose (UA) Negative Urine Ketones Negative Urine Blood Negative Urine Nitrite Negative Ur Leukocyte Esterase Trace H Urine RBC 0-2 Urine WBC 0-5 Ur Squamous Epith Cells 0-2 Urine Bacteria None Seen Hyaline Casts 3-5 Imaging Radiologist's Impressions: Impressions Sacrum and Coccyx X-Ray 04/09/23 14:17 IMPRESSION: No radiographic evidence of any displaced sacrococcygeal fracture identified. Cervical Spine CT 04/09/23 14:50 IMPRESSION: - No acute intracranial findings. - No acute osseous findings within the cervical spine. - Diffuse enlargement of the extraocular muscles bilaterally which can be correlated with thyroid function tests to exclude thyroid orbitopathy. Head CT 04/09/23 14:50 IMPRESSION: - No acute intracranial findings. - No acute osseous findings within the cervical spine. - Diffuse enlargement of the extraocular muscles bilaterally which can be correlated with thyroid function tests to exclude thyroid orbitopathy. Chest X-Ray 04/09/23 17:31 IMPRESSION: No acute abnormality of the chest. Assessment and Plan (1) Syncope and collapse: Status: Acute (2) Paroxysmal atrial fibrillation: Status: Acute (3) ASHD (arteriosclerotic heart disease): Status: Acute (4) HTN (hypertension): Qualifiers: Hypertension type: primary hypertension Qualified Code(s): I10 - Essential (primary) hypertension Status: Acute Plan 72-year-old male with a history of paroxysmal atrial fibrillation on Eliquis, HFrEF status post AICD, hypertension presents with syncopal episode earlier today. He describes blowing his nose a waking up on the floor. States he has me multiple issues with sinuses which have been worsening. He has sought ENT assistance and has ongoing follow-up. In the emergency room CT of the head was unremarkable and monitor demonstrated sinus rhythm. He will be admitted to telemetry and worked up for his presenting complaint. He denies palpitations associated with dizziness 1.Syncope - admitted to telemetry and monitor as per protocol - cardiology consult in a.m. - last echo November 2022 which demonstrated an EF of 15-20% with severe global hypokinesis. 2.Paroxysmal atrial fibrillation - examined sinus rhythm present - Monitor on telemetry - continue Eliquis as ordered 3. ASHD with history of HFrEF - BP marginal at this time; patient asymptomatic - add back therapies in a.m. as clinically indicated 4.Hypertension - as above -follow renals/divalents Eliquis full code Patient will require at least 2 midnights inpatient stay for workup of syncopal episode. This cannot be achieved a lesser acute setting Time Spent With Patient Time: Total time managing care of this patient today ____ minutes. Quality Stroke Does the patient have a stroke diagnosis?: No VTE Prior VTE?: No VTE Risk Level:: Medical - moderate - high VTE Device Contraindication: Treatment Not Indicated VTE Drug Contraindication: N/A - Med Ordered
--- NOTE | 2023-04-09 18:37 | PHA.MEDREC ---
Pharmacy Consult ? Medication Reconciliation Pharmacy has completed the medication reconciliation.
[2023-04-10 01:52] VITALS: PULSE 75; RESP 17
[2023-04-10 04:40] VITALS: BP 112/66; PULSE 74; RESP 15; TEMP 36.3; O2SAT 96
[2023-04-10 08:15] VITALS: BP 110/64; PULSE 70; RESP 16; O2SAT 96
--- NOTE | 2023-04-10 08:21 | PC.NURSE ---
pt alert and oriented, skin pwd, respirations even and unlabored, ls clear, pt denies feeling dizzy/denies chest pain/sob but reports having some nasal congestion/weird feeling and has had multiple bloody noses in the past. normal sinus on the monitor
--- NOTE | 2023-04-10 09:53 | PM.CNCAR ---
History of Present Illness History of Present Illness Date of Service: 04/10/23 Chief complaint: Syncope Narrative: This is a cardiology consultation regarding dizziness/syncope. Patient of Dr. Jules. Last seen in November of this year. Listed to have many comorbidities including severe ischemic cardiomyopathy, coronary artery disease, paroxysmal atrial fibrillation and he also has ICD in place. He has been generally doing okay without any heart failure symptoms or signs. However, couple of days ago he started having some sensation of feeling dizzy but that was somewhat transient. Did not last too long. Subsequently, he was trying to either clear his throat her blow his nose but difficult to say what he means. That context, it seems he had a syncopal episode. Per ER note, could not get a blood pressure at home. Some postural orthostatic symptoms off and on. Otherwise, no heart failure symptoms. Review of Systems Review of Systems: Yes all other systems are reviewed and are negative Constitutional: Constitutional: Reports as per HPI and Reports no additional constitutional complaints Eyes: Eyes: Reports as per HPI and Denies no additional eye complaints ENT: Denies system reviewed and no additional complaints, except as documented and Reports as per HPI Cardiovascular: Cardiovascular: Reports as per HPI, Reports no additional cardiovascular complaints, Denies acrocyanosis, Denies cool extremities, Denies chest pain, Denies leg edema, Denies lightheadedness, Denies palpitations and Denies dyspnea Respiratory: Respiratory: Reports as per HPI, Denies no additional respiratory complaints and Denies dyspnea Gastrointestinal: Gastrointestinal: Reports as per HPI and Denies no additional gastrointestinal complaints Genitourinary: Genitourinary: Reports no additional male genitourinary complaints and Reports as per HPI Musculoskeletal: Musculoskeletal: Reports no additional musculoskeletal complaints and Reports as per HPI Integumentary/Breasts: Skin/Breast: Reports system reviewed and no additional complaints, except as docu Neurologic: Reports system reviewed and no additional complaints, except as documented and Reports as per HPI Psychiatric: Psychiatric: Reports no additional psychiatric complaints and Reports as per HPI Endocrine: Endocrine: Reports no additional endocrine complaints, Reports as per HPI and Denies palpitations Hematologic/Lymphatic: Hematologic/Lymphatic: Reports no additional hematologic/lymphatic complaints and Reports as per HPI Allergic/Immunologic: Allergic/Immunologic: Reports no additional allergic/immunologic complaints and Reports as per HPI [facility] Past Medical History Medical History Paroxysmal atrial fibrillation Thrombocytopenia Systolic CHF Fatty liver Macular degeneration of right eye ICD (implantable cardioverter-defibrillator) in place Hypothyroid GERD (gastroesophageal reflux disease) Depression, major, 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 Social History Social History Housing: [facility] Patient Tobacco Use Status: Former Tobacco user Years Smoked: quit 40 years ago Smoked in Last 30 Days: No e-Cigarette/Vaping Use: Never Used Second Hand Smoke Exposure: No Use of substances other than those prescribed or required for medical reasons: No Advance Directives: Yes Advance Directives on File: Yes Advance Directives Date on File: 03/16/23 Nutrition Risks: No Nutritional Risk service: No Current occupational status: retired Cognitive needs: No Hearing needs: No Vision needs: No Meds Allergies Allergy/AdvReac Type Severity Reaction Status Date / Time No Known Allergies Allergy Verified 04/09/23 13:31 Active Medications: Current Medications Acetaminophen (Acetaminophen 325 Mg Tablet) 650 mg PO Q6H PRN PRN Reason: Pain, Mild (Pain Scale 1-3) Ondansetron HCl (Ondansetron Hcl 4 Mg/2 Ml Vial) 4 mg IVPUSH Q8H PRN PRN Reason: Nausea and Vomiting Sodium Chloride (0.9 % Sodium Chloride Flush 3 Ml Syringe) 3 ml [facility] Last Admin: 04/10/23 08:16 Dose: 3 ml Home Medications Medication Instructions Recorded Confirmed Last Taken Type furosemide 20 mg tablet 30 mg PO DAILY 11/08/22 04/09/23 04/08/23 History levothyroxine 125 mcg tablet 125 mcg PO DAILY@0600 04/09/23 04/09/23 04/08/23 History nltffvzu-tcg- 250 mg-dha 90 1 cap PO DAILY 04/09/23 04/09/23 04/08/23 History mg-epa 160 ei-nzja-ytvi-zeax capsule (Ocuvite Adult 50 Plus) omeprazole 20 mg capsule,delayed 20 mg PO DAILY@0630 04/09/23 04/09/23 04/08/23 History release Physical Exam Vital Signs: Vital Signs: Last Vital Signs Temp 97.4 F 04/10/23 04:40 Pulse 70 04/10/23 08:15 Resp 16 04/10/23 08:15 BP 110/64 04/10/23 08:15 Pulse Ox 96 04/10/23 08:15 O2 Del Method Room Air 04/10/23 08:15 BMI result Body Mass Index 30.2 Const: General: comfortable and no acute distress Orientation/consciousness: patient oriented x3 HEENT: Other: Unremarkable Head: Yes normal to inspection Neck: Neck: Yes normal visual inspection Chest: Chest palpation & inspection: normal inspection of the chest Resp: Auscultation: clear to auscultation bilaterally Cardio: Palpation: normal PMI Heart sounds: S1 normal heart sound present, S2 normal heart sound present, no gallops, no murmurs and no rubs GI: Palpation (GI): Soft to palpation Back/Spine/Pelvis: Other: unremarkable Skin: General skin exam: no rashes or lesions noted Neuro: General: patient oriented x3 Extrem: General: Yes normal to inspection Psych: Mental Status: mental status grossly normal Objective Labs and Meds 04/09/23 13:49 04/09/23 13:49 Lab results: Laboratory Results - last 24 hr 04/09/23 04/09/23 04/09/23 13:49 17:10 17:24 WBC 5.0 RBC 4.39 L Hgb 13.5 L Hct 39.4 L MCV 89.7 MCH 30.8 MCHC 34.3 RDW 13.4 Plt Count 114 L MPV 11.4 Immature Gran % (Auto) 1.6 H Neut % (Auto) 60.4 Lymph % (Auto) 18.7 L Eddy % (Auto) 16.9 H Eos % (Auto) 1.6 Baso % (Auto) 0.8 Lymph # (Auto) 0.9 L Eddy # (Auto) 0.9 Eos # (Auto) 0.1 Baso # (Auto) 0.0 Abs Immat Gran (auto) 0.08 H Absolute Neuts (auto) 3.0 Absolute Nucleated RBC 0.000 Nucleated RBC % (auto) 0.0 PT 14.8 H INR 1.2 H APTT 28.3 Sodium 143 Potassium 4.2 Chloride 109 H Carbon Dioxide 22 Anion Gap 16 BUN 23 H Creatinine 1.51 H Estim Creat Clear Calc 52.7 Estimated GFR 45 POC Glucose Random Glucose 166 H Calcium 9.5 Magnesium 2.1 Total Bilirubin 0.9 Direct Bilirubin 0.3 AST 15 ALT 12 Alkaline Phosphatase 44 Troponin I High Sens 13.8 B-Natriuretic Peptide 265 H Total Protein 7.0 Albumin 4.4 TSH 0.84 Urine Color Yellow Urine Appearance Clear Urine pH 7.0 Ur Specific [place] 1.020 Urine Protein Trace Urine Glucose (UA) Negative Urine Ketones Negative Urine Blood Negative Urine Nitrite Negative Ur Leukocyte Esterase Trace H Urine RBC 0-2 Urine WBC 0-5 Ur Squamous Epith Cells 0-2 Urine Bacteria None Seen Hyaline Casts 3-5 04/09/23 04/10/23 18:27 07:18 WBC RBC Hgb Hct MCV MCH MCHC RDW Plt Count MPV Immature Gran % (Auto) Neut % (Auto) Lymph % (Auto) Eddy % (Auto) Eos % (Auto) Baso % (Auto) Lymph # (Auto) Eddy # (Auto) Eos # (Auto) Baso # (Auto) Abs Immat Gran (auto) Absolute Neuts (auto) Absolute Nucleated RBC Nucleated RBC % (auto) PT INR APTT Sodium Potassium Chloride Carbon Dioxide Anion Gap BUN Creatinine Estim Creat Clear Calc Estimated GFR POC Glucose 160 H 118 H Random Glucose Calcium Magnesium Total Bilirubin Direct Bilirubin AST ALT Alkaline Phosphatase Troponin I High Sens B-Natriuretic Peptide Total Protein Albumin TSH Urine Color Urine Appearance Urine pH Ur Specific [place] Urine Protein Urine Glucose (UA) Urine Ketones Urine Blood Urine Nitrite Ur Leukocyte Esterase Urine RBC Urine WBC Ur Squamous Epith Cells Urine Bacteria Hyaline Casts ECG Interpretation: EKG shows sinus rhythm at 68/Min; premature supraventricular ectopy and nonspecific ST-T changes. Nonspecific IVCD. Imaging Radiologist's impression: Impressions Sacrum and Coccyx X-Ray 04/09/23 14:17 IMPRESSION: No radiographic evidence of any displaced sacrococcygeal fracture identified. Cervical Spine CT 04/09/23 14:50 IMPRESSION: - No acute intracranial findings. - No acute osseous findings within the cervical spine. - Diffuse enlargement of the extraocular muscles bilaterally which can be correlated with thyroid function tests to exclude thyroid orbitopathy. Head CT 04/09/23 14:50 IMPRESSION: - No acute intracranial findings. - No acute osseous findings within the cervical spine. - Diffuse enlargement of the extraocular muscles bilaterally which can be correlated with thyroid function tests to exclude thyroid orbitopathy. Chest X-Ray 04/09/23 17:31 IMPRESSION: No acute abnormality of the chest. Sinuses CT 04/10/23 08:40 IMPRESSION: - As noted on the prior head CT, the extraocular muscles are diffusely enlarged which can be correlated with thyroid function tests to exclude thyroid orbitopathy. A thyroid function tests are normal, consider an orbits MRI for further assessment. - Mild sinus mucosal disease as described. - Rightward deviation of the nasal septum. Assessment and Plan (1) Syncope and collapse: Status: Acute (2) Orthostatic hypotension: Status: Acute (3) Systolic CHF: Status: Acute (4) ASHD (arteriosclerotic heart disease): Status: Acute (5) ICD (implantable cardioverter-defibrillator) in place: Status: Acute Plan Per ER note, patient was orthostatic with significant drop in blood pressure. High sensitivity troponin within normal limits. Stable cardiac BNP. Some other blood pressures recorded upon arrival are as low as 85/50 mm Hg. Suspected to have significant orthostatic drop. That might have been the reason for the syncopal episode. We can decrease the dose of Entresto. Other meds may be continued as before considering severe cardiomyopathy. Will need follow-up in the office for any further med changes. Discussed with Dr. De La Rosa. Time Spent With Patient Time: Total time managing care of this patient today ____ minutes. Procedures Date of Service Date of Service: 04/10/23
--- NOTE | 2023-04-10 10:03 | PM.DS ---
DS: Providers Provider Date of Service: 04/10/23 Date of admission: 04/09/23 18:23 Date of discharge: 04/10/23 Primary care physician: RENEE Kruger Consults: 04/09/23 18:25 Consult to Cardiology Routine Consulting Provider: [facility] Reason for consultation: syncope Has provider been notified: Yes DS: Diagnosis Discharge Diagnosis (1) Syncope and collapse: Status: Acute (2) Paroxysmal atrial fibrillation: Status: Acute (3) ASHD (arteriosclerotic heart disease): Status: Acute (4) HTN (hypertension): Status: Acute DS: Summary Hospital Course Hospital Course: 72 yo male with history of PAF on Eliquis, HFrEF s/p AICD, HTN, who presents to the ER for evaluation of dizziness that started this morning when he woke up. He went back to bed but no improvement. Later in the kitchen he was trying to blow his nose when he woke up on the floor. Reports intermittent ongoing dizziness w/ position changes. States he has worsening problems with sinuses over the last several months. Denies fever chills. Workup in ER including CT of his head failed to demonstrate any pathology suggestive of his complaint. He will be admitted to telemetry for workup of same. No evidence of AICD discharge Hospital Course patient admitted to telemetry overnight where monitor failed to show dysrhythmia. Seen in consultation by Cardiology; advised Entresto be decreased. . . Next lowest dose. Patient will be DC it to home to follow-up with Dr. King and his PCP. Of note, his sinuses were scan to rule out of sinusitis being in the backdrop of his syncope. CT failed to demonstrate any acute abnormalities. He will be discharged to home to follow-up as ordered Time Spent with Patient Time attestation: Total time managing care of this patient today ____ minutes. Discharge coordination time: Greater than 30 minutes Quality: Safe Use of Opioids Does Pt have an Active Cancer Diagnosis on the Problem List?: No Quality: Stroke Does the patient have a stroke diagnosis?: No Physical Exam Vital Signs: Vital Signs: Last Vital Signs Temp 97.4 F 04/10/23 04:40 Pulse 70 04/10/23 08:15 Resp 16 04/10/23 08:15 BP 110/64 04/10/23 08:15 Pulse Ox 96 04/10/23 08:15 O2 Del Method Room Air 04/10/23 08:15 BMI result Body Mass Index 30.2 Const: Other: awake alert oriented x3 no acute distress HEENT: Other: unable to visualize TMs secondary to bilateral cerumen impaction Neck: Other: no bruits appreciated Resp: Other: clear to auscultation bilaterally no rales rhonchi or wheezes Cardio: Other: no S4; positive S1-S2; no S3 murmurs rubs or gallops. Examines in normal sinus rhythm Neuro: Other: cranial nerves 2-12 grossly intact as tested. Motor 5/5 all extremities. Sensation intact. Gait not observed. Cognition appropriate. No nystagmus appreciated Extrem: Other: no edema bilaterally DS: Data Data Completed and Pending Labs on day of discharge: Laboratory Results - last 24 hr 04/09/23 04/09/23 04/09/23 13:49 17:10 17:24 WBC 5.0 RBC 4.39 L Hgb 13.5 L Hct 39.4 L MCV 89.7 MCH 30.8 MCHC 34.3 RDW 13.4 Plt Count 114 L MPV 11.4 Immature Gran % (Auto) 1.6 H Neut % (Auto) 60.4 Lymph % (Auto) 18.7 L [place] % (Auto) 16.9 H Eos % (Auto) 1.6 Baso % (Auto) 0.8 Lymph # (Auto) 0.9 L [place] # (Auto) 0.9 Eos # (Auto) 0.1 Baso # (Auto) 0.0 Abs Immat Gran (auto) 0.08 H Absolute Neuts (auto) 3.0 Absolute Nucleated RBC 0.000 Nucleated RBC % (auto) 0.0 PT 14.8 H INR 1.2 H APTT 28.3 Sodium 143 Potassium 4.2 Chloride 109 H Carbon Dioxide 22 Anion Gap 16 BUN 23 H Creatinine 1.51 H Estim Creat Clear Calc 52.7 Estimated GFR 45 POC Glucose Random Glucose 166 H Calcium 9.5 Magnesium 2.1 Total Bilirubin 0.9 Direct Bilirubin 0.3 AST 15 ALT 12 Alkaline Phosphatase 44 Troponin I High Sens 13.8 B-Natriuretic Peptide 265 H Total Protein 7.0 Albumin 4.4 TSH 0.84 Urine Color Yellow Urine Appearance Clear Urine pH 7.0 Ur Specific [place] 1.020 Urine Protein Trace Urine Glucose (UA) Negative Urine Ketones Negative Urine Blood Negative Urine Nitrite Negative Ur Leukocyte Esterase Trace H Urine RBC 0-2 Urine WBC 0-5 Ur Squamous Epith Cells 0-2 Urine Bacteria None Seen Hyaline Casts 3-5 04/09/23 04/10/23 18:27 07:18 WBC RBC Hgb Hct MCV MCH MCHC RDW Plt Count MPV Immature Gran % (Auto) Neut % (Auto) Lymph % (Auto) [place] % (Auto) Eos % (Auto) Baso % (Auto) Lymph # (Auto) [place] # (Auto) Eos # (Auto) Baso # (Auto) Abs Immat Gran (auto) Absolute Neuts (auto) Absolute Nucleated RBC Nucleated RBC % (auto) PT INR APTT Sodium Potassium Chloride Carbon Dioxide Anion Gap BUN Creatinine Estim Creat Clear Calc Estimated GFR POC Glucose 160 H 118 H Random Glucose Calcium Magnesium Total Bilirubin Direct Bilirubin AST ALT Alkaline Phosphatase Troponin I High Sens B-Natriuretic Peptide Total Protein Albumin TSH Urine Color Urine Appearance Urine pH Ur Specific [place] Urine Protein Urine Glucose (UA) Urine Ketones Urine Blood Urine Nitrite Ur Leukocyte Esterase Urine RBC Urine WBC Ur Squamous Epith Cells Urine Bacteria Hyaline Casts Discharge Plan Discharge Anticipated Discharge Date/Time: 04/10/23 09:59 Patient Disposition: Home, Self-Care Discharge Diagnosis: Syncope Referrals: Karthikeyan Evans, [employer] [Primary Care Provider] - 1 Week Discharge Medications: New Entresto 24-26 mg tablet 1 tab PO BID Qty: 60 0RF Continued mirtazapine 15 mg tablet 15 mg PO BEDTIME 90 Days Qty: 90 0RF betamethasone dipropionate 0.05 % cream 1 appl topical BID PRN (Reason: skin irritation) Qty: 45 1RF metoprolol succinate 25 mg tablet extended release 24 hr 25 mg PO DAILY 90 Days Qty: 90 1RF spironolactone 25 mg tablet 12.5 mg PO DAILY 90 Days Qty: 45 3RF tamsulosin 0.4 mg capsule 0.4 mg PO BEDTIME 90 Days Qty: 90 1RF sertraline 100 mg tablet 150 mg PO DAILY 90 Days Qty: 135 1RF ezetimibe 10 mg tablet 10 mg PO DAILY 90 Days Qty: 90 0RF atorvastatin 80 mg tablet 80 mg PO BEDTIME 90 Days Qty: 90 1RF levothyroxine 125 mcg tablet 125 mcg PO DAILY@0600 omeprazole 20 mg capsule,delayed release(DR/EC) 20 mg PO DAILY@0630 Ocuvite Adult 50 Plus 250 mg (90 mg-160 mg) Capsule 1 cap PO DAILY furosemide 20 mg tablet 30 mg PO DAILY Eliquis 5 mg tablet 5 mg PO BID Qty: 60 5RF Discontinued Entresto 49-51 mg tablet 1 tab PO BID 90 Days Qty: 180 2RF Discharge Orders: Discharge Order (Routine); Ordered 04/10/23 Ordered By: Shen De La Rosa Diet: Advance to usual diet Activity on Discharge: As tolerated Stand Alone Forms: Patient Portal Discharge page Care Plan Goals: your Entresto has been decreased. New script as at the pharmacy. Do not take the old Entresto until seen by Cardiology Health Concerns: call Dr. Jules office to arrange follow-up for this hospitalization Plan of Treatment: resume all other pre-hospital medication Assessment: see discharge summary
== END 2023-04-10 11:07 | disposition home or self-care (01) | DRG 312 ==
LOC: HO.ED 17:12 → HO.EDOVER 18:28
PROVIDERS: Physician Assistant; Admitting Provider Hospitalist; Emergency Provider Emergency Medicine; PCP Nurse Practitioner Family; Visit Provider Hospitalist
DX: I95.1 Orthostatic hypotension (principal); I25.10 Atherosclerotic heart disease of native coronary artery without angina pectoris; N40.0 Benign prostatic hyperplasia without lower urinary tract symptoms; J44.9 Chronic obstructive pulmonary disease, unspecified; I48.0 Paroxysmal atrial fibrillation; E03.9 Hypothyroidism, unspecified; Z95.810 Presence of automatic (implantable) cardiac defibrillator; K76.0 Fatty (change of) liver, not elsewhere classified; Z87.891 Personal history of nicotine dependence; Z79.01 Long term (current) use of anticoagulants; Z79.890 Hormone replacement therapy; Z79.899 Other long term (current) drug therapy
CPT/HCPCS: 36415; 70450; 70486; 71045; 72125; 72220; 80048; 80076; 81001; 82947; 83735; 83880; 84443; 84484; 85025; 85610; 85730; 93005; 99285

== ENCOUNTER → 2023-04-09 18:23 | Outpatient (BNV) | payer MEDICARE, SELFPAY | PROVIDERS: Admitting Provider Hospitalist; Emergency Provider Emergency Medicine; PCP Nurse Practitioner Family; Visit Provider Internal Medicine | DX: I95.1 Orthostatic hypotension (principal); I50.20 Unspecified systolic (congestive) heart failure; I25.10 Atherosclerotic heart disease of native coronary artery without angina pectoris; Z95.810 Presence of automatic (implantable) cardiac defibrillator | CPT/HCPCS: 99221 ==

== ENCOUNTER → 2023-04-09 18:23 | Outpatient (BNV) | payer MEDICARE, SELFPAY | PROVIDERS: Admitting Provider Hospitalist; Emergency Provider Emergency Medicine; PCP Nurse Practitioner Family; Visit Provider Hospitalist | DX: R55 Syncope and collapse (principal); I48.0 Paroxysmal atrial fibrillation; I25.10 Atherosclerotic heart disease of native coronary artery without angina pectoris; I10 Essential (primary) hypertension | CPT/HCPCS: 99223; 99239 ==

== ENCOUNTER → 2023-04-25 23:59 | Outpatient (BNV) | payer MEDICARE, SELFPAY ==
--- NOTE | 2023-04-25 14:50 | MHC.OFFVIS ---
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 Congenital bilateral renal cysts Chronic renal insufficiency, stage IV (severe) BPH (benign prostatic hyperplasia) ASHD (arteriosclerotic heart disease) Metal foreign body in lower leg Myocardial infarct Social History Housing: Condominium Patient Tobacco Use Status: Former Tobacco user Years Smoked: quit 40 years ago e-Cigarette/Vaping Use: Never Used Second Hand Smoke Exposure: No Advance Directives Date on File: 03/16/23 service: No Current occupational status: retired Cognitive needs: No Hearing needs: No Vision needs: No Office Procedures Cardiac Device Check Cardiac Device Check Details: Remote ICD report generated 04/25/2023. ICD function is adequate [id number] Cardiac Interrogation, implant defibrillator w/interim Procedure code (CPT) selection complete Quality Reporting (2019) Adult ([facility] 138/08/25/68) Smoking risk assessment performed?: Yes Patient Tobacco Use Status: Former Tobacco user Coding Level of Care Code Procedure Only CPT Codes Cardiac Device Check - Cardiac Device 13: [id number] Cardiac Interrogation, implant defibrillator w/interim ([id number])
== END ==
PROVIDERS: PCP Nurse Practitioner Family; Visit Provider Internal Medicine Cardiovascular Disease
DX: I48.0 Paroxysmal atrial fibrillation (principal); Z95.810 Presence of automatic (implantable) cardiac defibrillator
CPT/HCPCS: 93295

== ENCOUNTER 2023-05-16 12:11 | Outpatient (AMB) | payer MEDICARE, SELFPAY ==
--- NOTE | 2023-05-16 12:26 | A.OFFVIS_ITS ---
Intake Vital Signs 05/16/23 12:29 Height 6 ft Weight 221 lb BMI 30.0 BP 122/72 Blood Pressure Location Lt brachial Position Sitting Pulse 58 Intake Visit Reasons: 6 mth after echo/card clear for colonoscopy Intake Note: 6 month follow-up after echo and medtronic was in the ED in Oct feeling ok Health Researcher Required: No Checker/Stocker: Checker/Stocker Present Accompanied by: Other Relationship Allergies No Known Allergies Allergy (Verified 04/09/23 13:31) Medication List - Last Reconciled 05/16/23 by Mark Jules MD apixaban (Eliquis) 5 mg PO BID atorvastatin 80 mg PO BEDTIME 90 days betamethasone dipropionate 0.05% 1 appl topical BID PRN ezetimibe 10 mg PO DAILY 90 days furosemide 30 mg PO DAILY levothyroxine 125 mcg PO DAILY@0600 metoprolol succinate ER 25 mg PO DAILY 90 days mirtazapine 15 mg PO BEDTIME 90 days [id number]-ioh-gph-oqjr-lut-yeimi 250 mg (90 mg-160 mg) (Ocuvite Adult 50 Plus) 1 cap PO DAILY omeprazole 20 mg PO DAILY sacubitril-valsartan 24-26 mg (Entresto) 1 tab PO BID sertraline 150 mg (1.5 x 100 mg) PO DAILY 90 days spironolactone 12.5 mg (1/2 x 25 mg) PO DAILY 90 days tamsulosin 0.4 mg PO BEDTIME 90 days HPI HPI Comments History of Present Illness Details Kevin comes for follow-up. Recently admitted with orthostatic hypotension. His Entresto dose was then reduced to 24-26 mg b.i.d.. He is actually cutting his original 49-51 mg b.i.d. to half a pill. He is not no ticing any lightheadedness anymore. Does not exercise much but has not had any heart failure symptoms. Denies any worsening shortness of breath. No orthopnea, PND, leg edema. No weight gain. No prolonged palpitations irregular heartbeat. No ICD discharge. No chest pain. No bleeding issues or neurologic events. 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 Congenital bilateral renal cysts Chronic renal insufficiency, stage IV (severe) BPH (benign prostatic hyperplasia) ASHD (arteriosclerotic heart disease) Metal foreign body in lower leg Myocardial infarct [facility] Tobacco Use Status: Former Tobacco user Years Smoked: quit 40 years ago e-Cigarette/Vaping Use: Never Used Second Hand Smoke Exposure: No Advance Directives Date on File: 03/16/23 service: No Current occupational status: retired Cognitive needs: No Hearing needs: No Vision needs: No Review of Systems Const Denies chills, Denies fatigue, Denies fever(s), Denies frequent falls, Denies weakness, Denies weight gain and Denies weight loss ENT Denies dizziness Card Denies chest pain, Denies leg edema, Denies lightheadedness, Denies palpitations, Denies dyspnea, Denies dyspnea on exertion, Denies orthopnea and Denies other (loss of consciousness) Resp Denies cough, Denies dyspnea and Denies dyspnea on exertion GI Denies hematochezia and Denies change in stool character Musc Denies abnormal gait, Denies muscle weakness, Denies numbness, Denies radiating pain into limb and Denies tingling Neuro Denies Abnormal speech present, Denies abnormal gait, Denies dizziness, Denies frequent falls, Denies numbness, Denies tingling and Denies weakness Endo Denies fatigue and Denies palpitations Physical Exam Vital Signs: Last Vital Signs Pulse 58 05/16/23 12:29 BP 122/72 05/16/23 12:29 BMI result Body Mass Index 30.0 Const General: cooperative, comfortable, no acute distress, alert and awake Nutritional Appearance: overweight Orientation/consciousness: patient oriented x3 Limitations: no limitations Neck Neck: Yes trachea midline, Yes supple and Yes no JVD Chest Chest palpation & inspection: normal inspection of the chest Resp Effort & Inspection: normal respiratory effort Auscultation: clear to auscultation bilaterally Cardio Jugular venous distension: no JVD Palpation: abnormal PMI Rate: regular rate Rhythm: regular rhythm Heart sounds: S1 normal heart sound present, S2 normal heart sound present, no click, no gallops, no murmurs and no rubs Peripheral pulses: Peripheral pulses 2+ throughout GI Auscultation: normal bowel sounds Skin General skin exam: no rashes or lesions noted and ecchymosis Neuro General: patient oriented x3 and no focal motor deficits Speech: No Abnormal speech present Extrem General: Yes no clubbing, cyanosis or edema Office Procedures Cardiac Device Check Cardiac Device Check Details: Dual-chamber Medtronic ICD in place programmed in MVP mode at 60 beats per minute. Atrial pacing 32% of time. Minimal ventricular pacing noted. Very short episodes of atrial fibrillation with total burden of less than 0.1% with longest episode lasting 2 hours. Atrial ventricular sensing is adequate. Atrial ventricular pacing thresholds adequate. Pacing and shock lead impedance is stable. Battery life is at 3 years [id number] Cardiac Device Check, dual lead implantable defibrillator Procedure code (CPT) selection complete Assessment & Plan Assessment & Plan (1) Systolic CHF: Code(s): I50.20 - Unspecified systolic (congestive) heart failure Plan: Patient with heart failure with reduced ejection fraction with severe LV systolic dysfunction secondary to ischemic cardiomyopathy. Clinically euvolemic and well compensated current diuretic dose. We discussed about management of heart failure. Daily weight monitoring avoidance of salt loading was discussed. Continue current neurohormonal modulation with metoprolol, Entresto as well as spironolactone therapy. Importance of neurohormonal modulation was discussed. Advised to increase activity level and I think he will benefit from phase 2 cardiac rehabilitation. He wants to think about it. (2) ICD (implantable cardioverter-defibrillator) in place: Code(s): Z95.810 - Presence of automatic (implantable) cardiac defibrillator Plan: ICD in place for primary prevention. ICD is working well and reprogrammed for adequate function. Will follow remotely for heart failure as well as device function. (3) CAD (coronary artery disease): Code(s): I25.10 - Atherosclerotic heart disease of [place] coronary artery without angina pectoris Plan: CAD with prior myocardial infarction. No recurrent symptoms of angina. Continue aggressive risk factor modification. Blood pressure is currently well optimized. Continue dual therapy with atorvastatin and ezetimibe. Target goal LDL closer to 60 mg/dL. Currently on full oral anticoagulation Eliquis and therefore would avoid aspirin therapy to reduce bleeding risk. (4) Paroxysmal atrial fibrillation: Code(s): I48.0 - Paroxysmal atrial fibrillation Plan: Paroxysmal atrial fibrillation which is currently without significant burden. No symptoms related to it. Continue metoprolol therapy. Avoidance of stimulants was discussed. No indication for antiarrhythmic drug therapy. Continue full oral anticoagulation, currently on Eliquis 5 mg b.i.d.. Quarterly renal function test should be pursued. (5) Preoperative cardiovascular examination: Code(s): Z01.810 - Encounter for preprocedural cardiovascular examination Plan: Preoperative cardiovascular risk stratification prior to colonoscopy. This is low risk procedure although patient has severe LV systolic dysfunction prior CAD. He is intermediate risk for perioperative cardiovascular morbidity mortality. His Eliquis can be withheld 3 days prior to the procedure given his reduced GFR with associated increase risk for thromboembolic complication. Continue other medications the perioperative. . If extensive cautery use is planned, should consider putting a magnet on his device to deactivate the ICD. However while the ICD is deactivated he should be under full disclosure cardiac monitoring. Will follow up in the clinic in 6 months time after an echocardiogram. Thank you for allowing me to partake in his care Orders: Orders Cardiac Rehab Today I50.20 - Unspecified systolic (congestive) heart failure, Z95.2 - Presence of prosthetic heart valve CA echo transthoracic complete 6 Months I50.20 - Unspecified systolic (congestive) heart failure Medications: Refilled apixaban (Eliquis) 5 mg PO BID 60 tabs 5RF Quality Reporting (2019) Adult ([facility] 138/08/25/68) Smoking risk assessment performed?: Yes Patient Tobacco Use Status: Former Tobacco user Coding Level of Care Code Est Pt Level 4 (85517) Diagnoses Systolic CHF I50.20 ICD (implantable cardioverter-defibrillator) in place Z95.810 CAD (coronary artery disease) I25.10 Paroxysmal atrial fibrillation I48.0 Preoperative cardiovascular examination Z01.810 CPT Codes Cardiac Device Check - Cardiac Device 5: [id number] Cardiac Device Check, dual lead implantable defibrillator ([id number])
[2023-05-16 12:29] VITALS: BP 122/72; PULSE 58
== END 2023-05-16 12:50 | disposition home or self-care (01) ==
PROVIDERS: Visit Provider Internal Medicine Cardiovascular Disease
DX: I50.20 Unspecified systolic (congestive) heart failure (principal); I25.10 Atherosclerotic heart disease of native coronary artery without angina pectoris; I48.0 Paroxysmal atrial fibrillation; Z95.810 Presence of automatic (implantable) cardiac defibrillator; Z01.810 Encounter for preprocedural cardiovascular examination
CPT/HCPCS: 93283; 99214

== ENCOUNTER → 2023-05-16 12:11 | Outpatient (BNVA) | payer MEDICARE, SELFPAY | PROVIDERS: Visit Provider Internal Medicine Cardiovascular Disease | DX: Z45.02 Encounter for adjustment and management of automatic implantable cardiac defibrillator (principal); Z01.810 Encounter for preprocedural cardiovascular examination; I25.10 Atherosclerotic heart disease of native coronary artery without angina pectoris; I48.0 Paroxysmal atrial fibrillation | CPT/HCPCS: 99212 ==

== ENCOUNTER 2023-06-14 06:02 | Day surgery (SDC) | payer MEDICARE, SELFPAY ==
--- NOTE | 2023-06-13 09:53 | HO.ANESPROP2 ---
Documented by User: Eli Worthington NP 06/13/23 09:56 HPI - Anesthesia Eval Consult details Narrative: 72yo M for Colonoscopy Eliquis for afib ICD in situ Cardiac cleared: Preoperative cardiovascular risk stratification prior to colonoscopy. This is low risk procedure although patient has severe LV systolic dysfunction prior CAD. He is intermediate risk for perioperative cardiovascular morbidity mortality. His Eliquis can be withheld 3 days prior to the procedure given his reduced GFR with associated increase risk for thromboembolic complication. Continue other medications the perioperative. . If extensive cautery use is planned, should consider putting a magnet on his device to deactivate the ICD. However while the ICD is deactivated he should be under full disclosure cardiac monitoring. [facility] Active Problems Active Problems: All Active Problems (Updated 05/16/23 @ 12:49 by Mark Jules MD) CAD (coronary artery disease) (Acute) Paroxysmal atrial fibrillation (Acute) Syncope (Acute) Orthostatic hypotension (Acute) Encounter for annual wellness visit (AWV) in Medicare patient (Acute) Hearing loss (Acute) Skin lesion (Acute) Screening for colon cancer (Acute) Allergies (Acute) Systolic CHF (Acute) ICD (implantable cardioverter-defibrillator) in place (Acute) Screening PSA (prostate specific antigen) (Acute) Myocardial infarct (Acute) Past Medical History Medical History Elevated cholesterol CAD (coronary artery disease) Paroxysmal atrial fibrillation Thrombocytopenia Systolic CHF Fatty liver Macular degeneration of right eye ICD (implantable cardioverter-defibrillator) in place Hypothyroid GERD (gastroesophageal reflux disease) Depression, major, 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 Congenital bilateral renal cysts Chronic renal insufficiency, stage IV (severe) BPH (benign prostatic hyperplasia) ASHD (arteriosclerotic heart disease) Metal foreign body in lower leg HTN (hypertension) Myocardial infarct Surgical History Surgical History Hx of rotator cuff surgery H/O colonoscopy Social History [facility] Tobacco Use Status: Former Tobacco user Quit Date: 50 yrs ago Years Smoked: quit 40 years ago e-Cigarette/Vaping Use: Never Used Second Hand Smoke Exposure: No Use of substances other than those prescribed or required for medical reasons: No Are you DNR?: No Advance Directives: No Advance Directives Information Provided: Yes Advance Directives Date on File: 03/16/23 service: No Current occupational status: retired Cognitive needs: No Hearing needs: No Vision needs: No Meds Allergies Allergy/AdvReac Type Severity Reaction Status Date / Time No Known Allergies Allergy Verified 06/14/23 06:30 Home Medications Medication Instructions Recorded Confirmed Last Taken Type levothyroxine 125 mcg tablet 125 mcg PO DAILY@0600 04/09/23 05/16/23 04/08/23 History fhtflskr-kri-[id number] 250 mg-dha 90 1 cap PO DAILY 04/09/23 05/16/23 04/08/23 History mg-epa 160 ui-mymf-vcwa-zeax capsule (Ocuvite Adult 50 Plus) Exam Height,Weight and Vital Signs: Height 6 ft Weight 100.244 kg Pertinent Lab Results Pertinent Lab Results: Laboratory Tests 04/09/23 13:49 WBC 5.0 Hgb 13.5 L Hct 39.4 L Plt Count 114 L Sodium 143 Potassium 4.2 Chloride 109 H Carbon Dioxide 22 BUN 23 H Creatinine 1.51 H Narrative Narrative: Cardiac Device Check 05/2023 Details: Dual-chamber Medtronic ICD in place programmed in MVP mode at 60 beats per minute. Atrial pacing 32% of time. Minimal ventricular pacing noted. Very short episodes of atrial fibrillation with total burden of less than 0.1% with longest episode lasting 2 hours. Atrial ventricular sensing is adequate. Atrial ventricular pacing thresholds adequate. Pacing and shock lead impedance is stable. Battery life is at 3 years EKG 04/2023 Vent. Rate : 068 BPM Atrial Rate : 068 BPM P-R Int : 168 ms QRS Dur : 126 ms QT Int : 414 ms P-R-T Axes : 047 019 074 degrees QTc Int : 440 ms Sinus rhythm with Premature atrial complexes Non-specific intra-ventricular conduction block Nonspecific T wave abnormality Low voltage QRS Abnormal ECG When compared with ECG of 10-APR-2017 10:35, Premature atrial complexes are now Present Questionable change in QRS duration ECHO 11/2022 Conclusions: - Mildly increased left ventricular cavity size. There is normal left ventricular wall thickness. The left ventricular systolic function is severely decreased. The visually estimated ejection fraction is between 15-20%. There is severe global hypokinesis. - Normal right ventricular cavity size. There is borderline right ventricular systolic function. - The left atrium is severely dilated. - There is mild to moderate mitral valve regurgitation. 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 Congenital bilateral renal cysts Chronic renal insufficiency, stage IV (severe) BPH (benign prostatic hyperplasia) ASHD (arteriosclerotic heart disease) Metal foreign body in lower leg HTN (hypertension) Myocardial infarct Family History Family history of problems with anesthesia: No Surgical History Surgical History Hx of rotator cuff surgery H/O colonoscopy History of Problems with Anesthesia: No Social History [facility] Tobacco Use Status: Former Tobacco user Quit Date: 50 yrs ago Years Smoked: quit 40 years ago e-Cigarette/Vaping Use: Never Used Second Hand Smoke Exposure: No Use of substances other than those prescribed or required for medical reasons: No Are you DNR?: No Advance Directives: No Advance Directives Information Provided: Yes Advance Directives Date on File: 03/16/23 service: No Current occupational status: retired Cognitive needs: No Hearing needs: No Vision needs: No Meds Allergies Allergy/AdvReac Type Severity Reaction Status Date / Time No Known Allergies Allergy Verified 06/14/23 06:30 Home Medications Medication Instructions Recorded Confirmed Last Taken Type levothyroxine 125 mcg tablet 125 mcg PO DAILY@0600 04/09/23 05/16/23 04/08/23 History cfknnzod-geo- 250 mg-dha 90 1 cap PO DAILY 04/09/23 05/16/23 04/08/23 History mg-epa 160 ys-xydc-qizo-zeax capsule (Ocuvite Adult 50 Plus) Exam Airway Mallampati Class: III TM Dist: >3cm Neck ROM: Full Loose/Missing/Broken Teeth: No Heart: irreg irreg s1s2 Lungs: cta b/l Assessment and Plan Assessment Anesthesia Assessment: Anesthesia Plan Discussed Final Anesthetic Review Family History of Problems with Anesthesia: No History of Problems with Anesthesia: No NPO: Yes ASA Class: III Final Preanesthetic Review: No Changes in Pt Med Stat, Meds/Allgs Chart Reviewed, Consent Obtained/Reviewed and Anes Risks/Benef Reviewed Patient Risk: High Procedure Risk: Low Assessment/Block/Sedation in SS: Assess/Block/Sedation-SS Anesthetic Plan Anesthetic Plan: MAC: and Agree w/ Assess. and Plan Disposition: Standard PACU
[2023-06-14 06:21] VITALS: BP 124/70; PULSE 60; RESP 16; TEMP 36.6; O2SAT 98
[2023-06-14 06:34] VITALS: BMI 30.2
--- NOTE | 2023-06-14 06:50 | P.HPSUR_ITS ---
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, major, in remission Fatty liver GERD (gastroesophageal reflux dise) History of Previous Operations: Relevant previous surgery/procedure and date(s) (icd placement) Allergies: Allergies Allergy/AdvReac Type Severity Reaction Status Date / Time No Known Allergies Allergy Verified 06/14/23 06:30 Review of Systems Sugical H&P ROS: Negative: Constitution, Cardiovascular, Respiratory, Neurological, Psychiatric, Hem-Onc, Allergic/Immunologic, Gastrointestinal, Genitourinary, Musculoskeletal, Integumentary, Endocrine and Ey es/Ears/Nose/Throat Exam Surgical H&P Exam: Normal: HEENT, Normal: Heart, Normal: Lungs, Normal: Extremities, Normal: Abdomen, Normal: Skin and Normal: Neurological Plan Diagnosis/Plan: Unchanged I have reviewed the history and physical and performed a pertinent physical examination on my patient. No changes have occurred unless specified. Time Spent With Patient Time: Total time managing care of this patient today ____ minutes.
[2023-06-14] MEDS: Lactated Ringers 1,000 ML 50 ML IVCONT (07:06)
--- NOTE | 2023-06-14 07:57 | P.OP_ITS ---
Operative Note Operative Note Date of Service: 06/14/23 Narrative: Operative Information Procedure Description: Colonoscopy Indication: screening Anesthesia: MAC COLONOSCOPY Instrument: Olympus variable stiffness pediatric scope 190L Colonoscopy Monitoring: Vital signs and clinical assessment, continuous EKG monitoring, Pulse oximetry, Carbon Dioxide monitoring and blood pressure monitoring were done throughout the procedure. Colon withdrawal time was 9 minutes. Procedure: The patient was placed in the left lateral decubitis position and pre-procedure medications were administered. After a digital rectal examination of the ano-rectum, the video colonoscope was inserted into the rectum and advanced through the colon to the cecum/TI. The colonoscope was slowly withdrawn in a retrograde panoramic fashion and the colon mucosa was carefully examined including a retroflexed view of the rectum. Findings and interventions are described below. Procedure Difficulty: easy Findings: Terminal Ileum-normal Cecum: few diverticula seen Ascending Colon: few diverticula seen Transverse Colon -normal Descending Colon:normal Sigmoid Colon: mild diverticulosis Rectum: Retroflexion with small internal hemorrhoids, grade I Anorectum - normal Colon preparation: Buckner Bowel Preparation Scale Right colon; 2 Transverse colon: 2 Left colon; 2 (0 = Unprepared colon segment with mucosa not seen due to solid stool that cannot be cleared. 1 = Portion of mucosa of the colon segment seen, but other areas of the colon segment not well seen due to staining, residual stool and/or opaque liquid. 2 = Minor amount of residual staining, small fragments of stool and/or opaque liquid, but mucosa of colon segment seen well. 3 = Entire mucosa of colon segment seen well with no residual staining, small fragments of stool or opaque liquid) Impression and Post Procedure Diagnosis: internal hemorrhoids diverticular disease Plan: High fiber diet leaflet Avoid straining at stool, epsom salts and sitz bath, anusol supps or cream Repeat Colonoscopy in 10 years if health allows and patient desires it or earlier if clinically indicated, otherwise this would be his last screening colonoscopy Above findings were reviewed with the patient and relevant handouts were provided if indicated.
[2023-06-14 08:00] VITALS: BP 84/53; PULSE 68; RESP 16; TEMP 37; O2SAT 94
[2023-06-14 08:15] VITALS: BP 96/59; PULSE 79; RESP 18; TEMP 37; O2SAT 94
== END 2023-06-14 08:42 | disposition home or self-care (01) ==
PROVIDERS: PCP Nurse Practitioner Family; Visit Provider Internal Medicine Gastroenterology
PROC: 0DJD8ZZ Inspection of Lower Intestinal Tract, Via Natural or Artificial Opening Endoscopic (ICD-10-PCS; CPT 45378; principal; 2023-06-14 07:30)
DX: Z12.11 Encounter for screening for malignant neoplasm of colon (principal); K57.30 Diverticulosis of large intestine without perforation or abscess without bleeding; K64.0 First degree hemorrhoids; I13.0 Hypertensive heart and chronic kidney disease with heart failure and stage 1 through stage 4 chronic kidney disease, or unspecified chronic kidney disease; N18.4 Chronic kidney disease, stage 4 (severe); I50.20 Unspecified systolic (congestive) heart failure; E78.00 Pure hypercholesterolemia, unspecified; I48.0 Paroxysmal atrial fibrillation; I95.1 Orthostatic hypotension; J44.9 Chronic obstructive pulmonary disease, unspecified; K76.0 Fatty (change of) liver, not elsewhere classified; I25.2 Old myocardial infarction; Z95.810 Presence of automatic (implantable) cardiac defibrillator; Z79.02 Long term (current) use of antithrombotics/antiplatelets; Z79.01 Long term (current) use of anticoagulants; Z79.899 Other long term (current) drug therapy; Z87.891 Personal history of nicotine dependence
CPT/HCPCS: G0121; J2704

== ENCOUNTER → 2023-06-14 06:02 | Outpatient (BNV) | payer MEDICARE, SELFPAY | PROVIDERS: PCP Nurse Practitioner Family; Visit Provider Internal Medicine Gastroenterology | DX: Z12.11 Encounter for screening for malignant neoplasm of colon (principal); K57.90 Diverticulosis of intestine, part unspecified, without perforation or abscess without bleeding; K64.0 First degree hemorrhoids | CPT/HCPCS: G0121 ==

== ENCOUNTER 2023-06-21 14:51 | Outpatient (REF) | payer MEDICARE, SELFPAY | END 2023-06-21 14:52 | disposition home or self-care (01) | LOC: HO.SH 14:51 | PROVIDERS: Visit Provider Nurse Practitioner Family | DX: Z13.89 Encounter for screening for other disorder (principal) ==

== ENCOUNTER 2023-07-22 10:32 | Outpatient (AMB) | payer MEDICARE, SELFPAY ==
[2023-07-22 10:36] VITALS: BP 102/68; PULSE 74; BMI 29.3
--- NOTE | 2023-07-22 10:36 | A.OFFVIS_ITS ---
Intake Vital Signs 07/22/23 10:36 Height 6 ft Weight 216 lb 0.848 oz BMI 29.3 BP 102/68 Blood Pressure Location Lt brachial Position Sitting Pulse 74 Intake Visit Reasons: follow up Gilbert results Intake Note: Kevin presents in the office as a follow up to colonoscopy. CC: He states that he is not having any concerns since his procedure. Incident Engineer Required: No Allergies No Known Allergies Allergy (Verified 07/22/23 10:40) HPI follow up Gilbert results HPI Details LAST VISIT Screening for colon cancer Patient denies any GI or respiratory symptoms.? Patient reports occasional constipation will give him stool softener. Denies any issues with anesthesia in the past.? Denies any history of sleep apnea.? No history infectious diseases in the past or present.? Patient is on Eliquis. History of CHF. Patient has appointment with his support group manager in couple months. Will ask for risk stratification before going for procedure. No family or personal history of colon cancer or polyps.? Patient denies melena, hematochezia, unintentional weight loss or ribbon like stools.? Discussed at length the pre-procedure,? prep, diet & medications as well as what to expect prior, during and after the procedure.?? Stressed the importance of good bowel prep. ?Recommended the use of Vaseline or Calmoseptine OTC & baby wipes with bowel movements to promote comfort.? ?Patient verbalizes understanding and agrees to plan of care.? He was given the opportunity to ask questions and all questions answered.? We will see him after the procedure.? Plan Medications New bisacodyl (Dulcolax (bisacodyl)) take 2 tabs at noon the day before your colonoscopy 10 mg (2 x 5 mg) PO ONCE 2 tabs 0RF 1 day Z12.11 - Encounter for screening for malignant neoplasm of colon docusate sodium 100 mg PO BEDTIME 90 caps 3RF K59.00 - Constipation, unspecified polyethylene glycol 3350 (Miralax) As directed by gastroenterology department at [facility] 238 grams PO ONCE 238 grams 0RF Z12.11 - Encounter for screening for malignant neoplasm of colon COLONOSCOPY Findings: Terminal Ileum-normal Cecum: few diverticula seen Ascending Colon: few diverticula seen Transverse Colon -normal Descending Colon:normal Sigmoid Colon: mild diverticulosis Rectum: Retroflexion with small internal hemorrhoids, grade I Anorectum - normal Colon preparation: [place] Bowel Preparation Scale Right colon; 2 Transverse colon: 2 Left colon; 2 (0 = Unprepared colon segment with mucos a not seen due to solid stool that cannot be cleared. 1 = Portion of mucosa of the colon segme nt seen, but other areas of the colon segment not well seen due to staining, residual stool and/or opaque liquid. 2 = Minor amount of residual staining, s mall fragments of stool and/or opaque liquid, but mucosa of colon segment seen well. 3 = Entire mucosa of colon segment seen well with no residual staining, small fragments of stool or opaque liquid) Impression and Post Procedure Diagnosis: internal hemorrhoids diverticular disease Plan: High fiber diet leaflet Avoid straining at stool, epsom salts and sitz bath, anusol supps or cream Repeat Colonoscopy in 10 years if health allows and patient desires it or earlier if clinically indicated, otherwise this would be his last screening colonoscopy TODAY'S VISIT: Patient is here today for follow-up and to discuss colonoscopy results. Patient denies any ill effects from the prep, anesthesia or procedure itself. Patient reports that he has been feeling well since the procedure. No GI concerning symptoms today. Patient is moving his bowels well without any issues. Denies any melena, hematochezia, unintentional weight loss or ribbon like stools. Denies dyspepsia, dysphagia or odynophagia. Patient is trying to improve his diet increasing fiber in his diet. 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 Congenital bilateral renal cysts Chronic renal insufficiency, stage IV (severe) BPH (benign prostatic hyperplasia) ASHD (arteriosclerotic heart disease) Metal foreign body in lower leg HTN (hypertension) Myocardial infarct Surgical History Hx of rotator cuff surgery H/O colonoscopy [facility] Patient Tobacco Use Status: Former Tobacco user Quit Date: 50 yrs ago Years Smoked: quit 40 years ago e-Cigarette/Vaping Use: Never Used Second Hand Smoke Exposure: No Advance Directives Date on File: 03/16/23 service: No Current occupational status: retired Cognitive needs: No Hearing needs: No Vision needs: No Review of Systems Const Denies weight gain and Denies weight loss ENT Reports no additional complaints, Denies dysphagia and Denies odynophagia Card Reports no additional complaints Resp Reports no additional complaints GI Denies abdominal pain, Denies belching, Denies melena, Denies bloating, Denies change in bowel habits, Denies dysphagia, Denies excessive flatus, Denies dys pepsia, Denies heartburn, Denies diarrhea, Denies loose stools, Denies nausea, Denies odynophagia and Denies vomiting Reports no additional complaints Musc Reports no additional complaints Neuro Reports no additional complaints Psych Reports no additional complaints Endo Reports no additional complaints Physical Exam Vital Signs: Last Vital Signs Pulse 74 07/22/23 10:36 BP 102/68 07/22/23 10:36 BMI result Body Mass Index 29.3 Const General: healthy appearing, no acute distress and well developed Nutritional Appearance: obese Orientation/consciousness: patient oriented x3 Neck Thyroid: Thyroid normal Resp Effort & Inspection: normal respiratory effort, able to speak in complete sentences, no tracheal deviation and symmetric chest movement Auscultation: clear to auscultation bilaterally Cardio Rate: regular rate GI Inspection: Yes normal to inspection, No distended and Yes obesity Palpation (GI): Soft to palpation, not firm, nontender and No hepatosplenomegaly present Auscultation: normal bowel sounds General: Yes no CVA tenderness Back/Spine/Pelvis Back: no CVA tenderness Skin General skin exam: elasticity normal, turgor normal and dry skin Neuro General: patient oriented x3 Psych Appearance: grossly normal Mental Status: mental status grossly normal Assessment & Plan Assessment & Plan (1) Status post colonoscopy: Code(s): Z98.890 - Other specified postprocedural states (2) Diverticulosis: Code(s): K57.90 - Diverticulosis of intestine, part unspecified, without perforation or abscess without bleeding Plan Patient will follow-up in our office on as-needed basis. Colonoscopy screening in 10 years, sooner if clinically necessary. Diverticulosis found on colonoscopy. High-fiber diet discussed with patient. List of food high in fiber given to patient. Patient is agreeable to current plan and verbalizes understanding of instructions he was given the opportunity to ask questions and all questions answered. Thank you for allowing me to participate in his care Quality Reporting (2019) Adult ([facility] ) Smoking risk assessment performed?: Yes Patient Tobacco Use Status: Former Tobacco user Coding Level of Care Code Est Pt Level 3 (68435) Diagnoses Status post colonoscopy Z98.890 Diverticulosis K57.90 Time Spent (min) 25 Comment 15 minutes spent with patient and additional 10 minutes spent reviewing his records
== END 2023-07-22 11:12 | disposition home or self-care (01) ==
PROVIDERS: PCP Nurse Practitioner Family; Visit Provider Nurse Practitioner Family
DX: Z98.890 Other specified postprocedural states (principal); K57.90 Diverticulosis of intestine, part unspecified, without perforation or abscess without bleeding
CPT/HCPCS: 99213

== ENCOUNTER → 2023-07-22 10:32 | Outpatient (BNVA) | payer MEDICARE, SELFPAY | PROVIDERS: PCP Nurse Practitioner Family; Visit Provider Nurse Practitioner Family | DX: K57.90 Diverticulosis of intestine, part unspecified, without perforation or abscess without bleeding (principal); Z98.890 Other specified postprocedural states | CPT/HCPCS: 99212 ==

== ENCOUNTER 2023-07-25 14:54 | Outpatient (AMB) | payer MEDICARE, SELFPAY ==
--- NOTE | 2023-07-25 15:03 | A.OFFPC_ITS ---
Vital Signs 07/25/23 15:09 Height 6 ft Weight 213 lb BMI 28.9 BP 110/68 Blood Pressure Location Rt brachial Position Sitting Pulse 81 Pulse Source Pulse Oximeter Pulse Oximetry (%) 96 Oxygen Delivery Method Room Air Intake Visit Reasons: 4 month fu Allergies No Known Allergies Allergy (Verified 07/25/23 17:33) Medication List - Last Reconciled 07/25/23 by Karthikeyan Evans, PRESTO LOG OPERATOR-BC apixaban (Eliquis) 5 mg PO BID atorvastatin 80 mg PO BEDTIME 90 days betamethasone dipropionate 0.05% 1 appl topical BID PRN ezetimibe 10 mg PO DAILY 90 days furosemide 30 mg (1.5 x 20 mg) PO DAILY 90 days levothyroxine 125 mcg PO DAILY@0600 metoprolol succinate ER 25 mg PO DAILY 90 days [id number]-dhl-eebx-lut-yeimi 250 mg (90 mg-160 mg) (Ocuvite Adult 50 Plus) 1 cap PO DAILY omeprazole 20 mg PO DAILY sacubitril-valsartan 24-26 mg (Entresto) 1 tab PO BID sertraline 150 mg (1.5 x 100 mg) PO DAILY 90 days spironolactone 12.5 mg (1/2 x 25 mg) PO DAILY 90 days tamsulosin 0.4 mg PO BEDTIME 90 days Tobacco use date assessed: 07/25/23 Fall risk assessment: 1 Fall in past year Last assessed Fall Risk: 07/25/23 Dental Screening Dental Screen Date: 07/25/23 Did you have a dental visit in the last 12 months?: No Did you have a dental problem in the last 6 months where you did not have access to dental care?: No HPI 4 month fu HPI Details Pt has a hx of elevated fasting blood sugar. He was in the hospital previously and had high POC glucose readings then as well. Pt also has fatigue in the mornings. Will order A1C. Denies polyuria, polydipsia, and neuropathy. Pt has some edema of his BLE. He has a hx of CHF and had an exacerbation due to increased sodium intake. Pt normally alternates 20mg and 40mg of furosemide. He has been taking 40mg for the last 3 days. Pt has cerumen to his bilat ears. Ear lavage was not successful. Recommended debrox. 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 Congenital bilateral renal cysts Chronic renal insufficiency, stage IV (severe) BPH (benign prostatic hyperplasia) ASHD (arteriosclerotic heart disease) Metal foreign body in lower leg HTN (hypertension) Myocardial infarct Surgical History Hx of rotator cuff surgery H/O colonoscopy Social History Housing: Condominium Patient Tobacco Use Status: Former Tobacco user Quit Date: 50 yrs ago Years Smoked: quit 40 years ago e-Cigarette/Vaping Use: Never Used Second Hand Smoke Exposure: No Advance Directives Date on File: 03/16/23 service: No Current occupational status: retired Cognitive needs: No Hearing needs: No Vision needs: No Questionnaire PHQ-9 Over the last 2 weeks, how often have you been bothered by any of the following problems? 1. Little interest or pleasure in doing things: not at all 2. Feeling down, depressed, or hopeless: not at all 3. Trouble falling or staying asleep, or sleeping too much: several days 4. Feeling tired or having little energy: nearly every day 5. Poor appetite or overeating: nearly every day 6. Feeling bad about yourself - or that you are a failure or have let yourself or your family down: not at all 7. Trouble concentrating on things, such as reading the newspaper or watching television: not at all 8. Moving or speaking so slowly that other people could have noticed. Or the opposite - being so fidgety or restless that you have been moving around a lot more than usual: not at all 9. Thoughts that you would be better off or of hurting yourself in some way: not at all Total score: 7 Depression Screening Interpretation: Negative Depression Screening Done: Yes 87974 - PHQ-9 Billing: Yes Source: Developed by Drs. Kevin L. TonyaSofya hicks Kurt Kroenke and colleagues, with an educational kimi from [employer]. Thrive Questionnaire Date Thrive assessed: 07/25/23 I am a: Patient What is your living situation today?: I have a steady place to live Within the past 12 months, did the food you bought not last and you didn't have the money to get more?: Never true Within the past 12 months, did you worry whether your food would run out before you got money to buy more?: Never true Do you have trouble paying for medicines?: Yes Do you have trouble getting transportation to medical appointments?: No Do you have trouble paying your heating and electricity bill?: No Do you have trouble taking care of your child, family member or friend?: No Do you have trouble with day-to-day activities such as bathing, preparing meals, shopping, managing finances, etc.?: No Are you currently unemployed and looking for a job?: No Are you interested in more education?: No Currently or been in a relationship where the following occur: no concerns reported THRIVE Score: 0 ADNNY-7 AMB Questionnaire DANNY-7 Date DANNY - 7 assessed: 07/25/23 Feeling nervous, anxious, or on edge: 1 = Several days Not being able to stop or control worryin = Not at all Worrying too much about different things: 0 = Not at all Trouble relaxin = Not at all Being so restless that it is hard to sit still: 0 = Not at all Becoming easily annoyed or irritable: 3 = Nearly every day Feeling afraid as if something awful might happen: 0 = Not at all Total DANNY-7 score (0-4 normal; 5-9 mild; 10-14 moderate; 15-21 severe): 4 Source: Developed by Sofya Torres Kurt Kroenke and colleagues, with an educational kimi from [employer]. DANNY-7 Assessment Billing DANNY-7 Assessment Tool: DANNY-7 Assessment 61332 Review of Systems Const Reports as per HPI Physical exam (Primary Care) Vital Signs: Last Vital Signs Pulse 81 07/25/23 15:09 BP 110/68 07/25/23 15:09 Pulse Ox 96 07/25/23 15:09 Oxygen Delivery Method Room Air 07/25/23 15:09 BMI result Body Mass Index 28.9 Tobacco/Smoking Status: Tobacco use Status Tobacco use date assessed 07/25/23 07/25/23 15:15 Patient Tobacco Use Status Former Tobacco user 07/25/23 15:06 e-Cigarette/Vaping Use Never Used 07/25/23 15:06 PHQ-9: PHQ-9 Score PHQ-9: Total score 7 07/25/23 16:32 Depression Screening Interpretation: Negative Thrive Assessment: Date of Thrive Assessment Date Thrive assessed 07/25/23 07/25/23 16:22 Currently or been in a relationship where the following occur: no concerns reported Const General: cooperative Orientation/consciousness: patient oriented x3 HENMT Other: cerumen noted bilat, after ear lavage cerumen still present Resp Effort & Inspection: normal respiratory effort Auscultation: clear to auscultation bilaterally Cardio Rate: regular rate Rhythm: regular rhythm Heart sounds: S1 normal heart sound present and S2 normal heart sound present Neuro General: patient oriented x3 Extrem Other: trace to bilat ankles Psych Appearance: grossly normal Mental Status: mental status grossly normal Speech and movement: Normal speech and movement present Affect: normal affect Attitude: cooperative Thought process: Normal thought process present Thought content: Normal thought content present Insight: Good insight present (Psych) Judgement: Good judgement present (Psych) Assessment and Plan Assessment & Plan (1) Systolic CHF: Code(s): I50.20 - Unspecified systolic (congestive) heart failure Plan: going back to alternating doses, 20mg, then 40mg, etc. No acute s/s of chf noted. (2) Elevated fasting blood sugar: Code(s): R73.01 - Impaired fasting glucose Plan: will check labs Plan The patient agreed to the use of a medical front desk coordinator for this encounter. Scribed for RENEE Whalen by Becca Kim medical front desk coordinator, on 07/25/2023 at 15:30 EST. Orders: Orders Hemoglobin A1c Today I50.20 - Unspecified systolic (congestive) heart failure, R73.01 - Impaired fasting glucose Coding Level of Care Code Est Pt Level 3 (06836) Diagnoses Systolic CHF I50.20 Elevated fasting blood sugar R73.01 Additional Codes DANNY-7 Assessment Billing - DANNY-7 Assessment Tool: DANNY-7 Assessment 33380 ([id number])
[2023-07-25 15:09] VITALS: BP 110/68; PULSE 81; O2SAT 96; BMI 28.9
== END 2023-07-25 16:42 | disposition home or self-care (01) ==
PROVIDERS: PCP Nurse Practitioner Family; Visit Provider Nurse Practitioner Family
DX: I50.20 Unspecified systolic (congestive) heart failure (principal); R73.01 Impaired fasting glucose
CPT/HCPCS: 99213

== ENCOUNTER → 2023-07-25 23:59 | Outpatient (BNV) | payer MEDICARE, SELFPAY ==
--- NOTE | 2023-07-26 12:32 | A.OFFVIS_ITS ---
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 Congenital bilateral renal cysts Chronic renal insufficiency, stage IV (severe) BPH (benign prostatic hyperplasia) ASHD (arteriosclerotic heart disease) Metal foreign body in lower leg HTN (hypertension) Myocardial infarct Surgical History Hx of rotator cuff surgery H/O colonoscopy Social History Housing: [facility] Patient Tobacco Use Status: Former Tobacco user Quit Date: 50 yrs ago Years Smoked: quit 40 years ago e-Cigarette/Vaping Use: Never Used Second Hand Smoke Exposure: No Advance Directives Date on File: 03/16/23 service: No Current occupational status: retired Cognitive needs: No Hearing needs: No Vision needs: No Office Procedures Cardiac Device Check Cardiac Device Check Details: Remote ICD report generated 07/25/2023. ICD function is adequate. [id number] Cardiac Interrogation, implant defibrillator w/interim Procedure code (CPT) selection complete Assessment & Plan Assessment & Plan (1) ICD (implantable cardioverter-defibrillator) in place: Code(s): Z95.810 - Presence of automatic (implantable) cardiac defibrillator Plan: See above Quality Reporting (2019) Adult ([facility] 138/08/25/68) Smoking risk assessment performed?: Yes Patient Tobacco Use Status: Former Tobacco user Coding Level of Care Code Procedure Only Diagnoses ICD (implantable cardioverter-defibrillator) in place Z95.810 CPT Codes Cardiac Device Check - Cardiac Device 13: [id number] Cardiac Interrogation, implant defibrillator w/interim ([id number])
== END ==
PROVIDERS: PCP Nurse Practitioner Family; Visit Provider Internal Medicine Cardiovascular Disease
DX: I48.0 Paroxysmal atrial fibrillation (principal); Z95.810 Presence of automatic (implantable) cardiac defibrillator
CPT/HCPCS: 93295

== ENCOUNTER 2023-07-26 13:58 | Outpatient (REF) | payer MEDICARE, SELFPAY ==
[2023-07-26 16:20] LABS: Mean Corpuscular Volume 92.5 fL (80.0-98.0); PLT CLUMP 1; SCAN SMEAR FLAG 1
[2023-07-26 16:21] LABS: Estimated Average Glucose 108 mg/dL; Hemoglobin A1c % 5.4 % (<6.0)
[2023-07-26 16:22] LABS: Basophils Absolute Auto 0.1 X10*3/uL (0.0-0.2); Basophils Percent Auto 0.7 % (0-2); Eosinophils Percent Auto 0.3 % (0-4); Hematocrit 35.9 % (42.0-52.0); Hemoglobin 11.8 g/dl (14.0-18.0); Imm Gran Pct Auto 1.5 % (0.0-0.4); Lymphocytes Absolute Auto 0.5 X10*3/uL (1.2-4.9); Lymphocytes Percent Auto 7.1 % (20-40); MANUAL DIFF FLAG SCAN; Mean Corpuscular HGB Conc 32.9 g/dl (31.0-36.0); Mean Corpuscular Hemoglobin 30.4 pg (27.0-33.0); Mean Platelet Volume 11.9 fL (9.4-12.4); Monocytes Absolute Auto 1.4 X10*3/uL (0.1-1.2); Neutrophils Absolute Auto 4.8 x10*3/uL (2.0-8.3); Neutrophils Percent Auto 69.4 % (45-73); Red Blood Count 3.88 X10*6/uL (4.60-5.80); Red Cell Distribution Width 13.9 % (11.0-16.0)
[2023-07-26 16:27] LABS: Alanine Aminotransferase 11 U/L (0-40); Albumin Level 4.6 g/dL (3.5-5.0); Alkaline Phosphatase 51 U/L (39-117); Anion Gap 13 (12-20); Aspartate Amino Transferase 12 U/L (5-37); Bilirubin Total 1.9 mg/dL (0.0-1.0); Blood Urea Nitrogen 23 mg/dL (9-16); Calcium 9.5 mg/dL (8.4-10.2); Carbon Dioxide 26 mmol/L (22-29); Chloride 105 mmol/L (96-108); Cholesterol 84 mg/dL (<200); Estimated Glomerular Filt Rate 49; Glucose Fasting 146 mg/dL (60-99); HDL Cholesterol 28 mg/dL (>40); LDL Cholesterol Calculated 35 mg/dL (<100); Potassium 4.1 mmol/L (3.3-5.1); Sodium 140 mmol/L (135-145); Total Protein 7.7 g/dL (6.5-8.0); Triglycerides 106 mg/dL (<150)
[2023-07-26 16:28] LABS: Appearance Urine Clear; Color Urine Yellow; Glucose Urine UA Negative (Negative); Leukocyte Esterase Urine Negative (Negative); Nitrite Urine Negative (Negative); Urine Blood Negative (Negative); Urine Ketones Negative (Negative); Urine Protein Negative (Neg-Trace)
[2023-07-26 16:39] LABS: Prostate Specific Antigen Scr 2.25 ng/mL (<0.05-4.0)
[2023-07-26 16:44] LABS: Platelet Count 133 X10*3/uL (160-400); SLIDE REVIEW VERIFIED; TSH reflex Free T4 0.58 uIU/mL (0.32-4.0); White Blood Count 6.9 X10*3/uL (4.8-10.8)
== END 2023-07-26 13:59 | disposition home or self-care (01) ==
LOC: HO.HMGCLDS 13:58
PROVIDERS: PCP Nurse Practitioner Family; Visit Provider Nurse Practitioner Family
DX: I11.0 Hypertensive heart disease with heart failure (principal); I50.20 Unspecified systolic (congestive) heart failure; R73.01 Impaired fasting glucose; Z12.5 Encounter for screening for malignant neoplasm of prostate
CPT/HCPCS: 36415; 80053; 80061; 81003; 83036; 84153; 84443; 85025

== ENCOUNTER 2023-08-03 13:02 | Outpatient (REF) | payer MEDICARE, SELFPAY ==
[2023-08-03 16:16] LABS: Basophils Percent Auto 0.6 % (0-2); Eosinophils Absolute Auto 0.1 X10*3/uL (0.0-0.4); Hemoglobin 10.9 g/dl (14.0-18.0); Mean Platelet Volume 11.5 fL (9.4-12.4); Monocytes Percent Auto 23.4 % (2-11); PLT CLUMP 1; Red Cell Distribution Width 14.1 % (11.0-16.0); SCAN SMEAR FLAG 1
[2023-08-03 16:18] LABS: Eosinophils Percent Auto 1.6 % (0-4); Hematocrit 33.6 % (42.0-52.0); Imm Gran Abs Auto 0.14 X10*3/uL (0.00-0.03); Imm Gran Pct Auto 2.9 % (0.0-0.4); MANUAL DIFF FLAG SCAN; Mean Corpuscular HGB Conc 32.4 g/dl (31.0-36.0); Mean Corpuscular Hemoglobin 30.4 pg (27.0-33.0); Mean Corpuscular Volume 93.6 fL (80.0-98.0); Monocytes Absolute Auto 1.2 X10*3/uL (0.1-1.2); Neutrophils Absolute Auto 2.5 x10*3/uL (2.0-8.3); Neutrophils Percent Auto 51.5 % (45-73); Red Blood Count 3.59 X10*6/uL (4.60-5.80)
[2023-08-03 16:34] LABS: Platelet Count 130 X10*3/uL (160-400); White Blood Count 4.9 X10*3/uL (4.8-10.8)
[2023-08-03 16:35] LABS: SLIDE REVIEW VERIFIED
[2023-08-03 16:41] LABS: Bilirubin Direct 0.5 mg/dL (0.0-0.5); Bilirubin Total 1.1 mg/dL (0.0-1.0); Iron 49 mcg/dL (45-160); Percent Iron Saturation 20 % (15-50); Total Iron Binding Capacity 248 mcg/dL (228-428); Unsaturated Iron Binding 199 ug/dL
[2023-08-03 16:48] LABS: Ferritin 244 ng/mL (20-250)
[2023-08-03 17:03] LABS: Folate 9.5 ng/mL (> or = 4.0); Vitamin B12 478 pg/mL (200-900)
== END 2023-08-03 13:03 | disposition home or self-care (01) ==
LOC: HO.HMGCLDS 13:02
PROVIDERS: PCP Nurse Practitioner Family; Visit Provider Nurse Practitioner Family
DX: R17 Unspecified jaundice (principal); D64.9 Anemia, unspecified
CPT/HCPCS: 36415; 82247; 82248; 82607; 82728; 82746; 83540; 85025

== ENCOUNTER → 2023-10-24 23:59 | Outpatient (BNV) | payer MEDICARE, SELFPAY ==
--- NOTE | 2023-10-25 16:45 | A.OFFVIS_ITS ---
Intake Visit Reasons: REmote ICD check- Medtronic Allergies No Known Allergies Allergy (Verified 07/25/23 17:33) [facility] Medical History (Updated 07/26/23 @ 17:20 by Karthikeyan Evans [facility]) Chronic anemia Elevated cholesterol CAD (coronary artery disease) Paroxysmal atrial fibrillation Thrombocytopenia Systolic CHF Fatty liver Macular degeneration of right eye ICD (implantable cardioverter-defibrillator) in place Hypothyroid GERD (gastroesophageal reflux disease) Depression, major, 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 Congenital bilateral renal cysts Chronic renal insufficiency, stage IV (severe) BPH (benign prostatic hyperplasia) ASHD (arteriosclerotic heart disease) Metal foreign body in lower leg HTN (hypertension) Myocardial infarct Surgical History Hx of rotator cuff surgery H/O colonoscopy [facility] Patient Tobacco Use Status: Former Tobacco user Quit Date: 50 yrs ago Years Smoked: quit 40 years ago e-Cigarette/Vaping Use: Never Used Second Hand Smoke Exposure: No Advance Directives Date on File: 03/16/23 service: No Current occupational status: retired Cognitive needs: No Hearing needs: No Vision needs: No Office Procedures Cardiac Device Check Cardiac Device Check Details: Remote ICD report generated 10/24/2023. ICD function is adequate [id number] Cardiac Interrogation, implant defibrillator w/interim Procedure code (CPT) selection complete Quality Reporting (2019) Adult ([facility] 138/08/25/68) Smoking risk assessment performed?: Yes Patient Tobacco Use Status: Former Tobacco user Assessment & Plan Assessment & Plan (1) ICD (implantable cardioverter-defibrillator) in place: Code(s): Z95.810 - Presence of automatic (implantable) cardiac defibrillator Category: Medical Plan: See above Coding Level of Care Code Procedure Only Diagnoses ICD (implantable cardioverter-defibrillator) in place Z95.810 CPT Codes Cardiac Device Check - Cardiac Device 13: [id number] Cardiac Interrogation, implant defibrillator w/interim ([id number])
== END ==
PROVIDERS: PCP Nurse Practitioner Family; Visit Provider Internal Medicine Cardiovascular Disease
DX: Z45.02 Encounter for adjustment and management of automatic implantable cardiac defibrillator (principal)
CPT/HCPCS: 93295

== ENCOUNTER 2023-11-15 11:36 | Outpatient (REF) | payer MEDICARE, SELFPAY ==
[2023-11-15 13:30] LABS: Basophils Absolute Auto 0.1 X10*3/uL (0.0-0.2); Basophils Percent Auto 0.9 % (0-2); Eosinophils Absolute Auto 0.1 X10*3/uL (0.0-0.4); Eosinophils Percent Auto 1.1 % (0-4); Hematocrit 35.1 % (42.0-52.0); Hemoglobin 11.6 g/dl (14.0-18.0); Imm Gran Abs Auto 0.07 X10*3/uL (0.00-0.03); Imm Gran Pct Auto 1.3 % (0.0-0.4); Lymphocytes Absolute Auto 1.1 X10*3/uL (1.2-4.9); Lymphocytes Percent Auto 20.1 % (20-40); MANUAL DIFF FLAG SCAN; Mean Corpuscular Hemoglobin 30.4 pg (27.0-33.0); Mean Corpuscular Volume 91.9 fL (80.0-98.0); Mean Platelet Volume 11.2 fL (9.4-12.4); Monocytes Absolute Auto 1.1 X10*3/uL (0.1-1.2); Monocytes Percent Auto 20.9 % (2-11); Neutrophils Percent Auto 55.7 % (45-73); Platelet Count 127 X10*3/uL (160-400); Red Blood Count 3.82 X10*6/uL (4.60-5.80); Red Cell Distribution Width 14.8 % (11.0-16.0); SCAN SMEAR FLAG 1; White Blood Count 5.4 X10*3/uL (4.8-10.8)
[2023-11-15 13:58] LABS: SLIDE REVIEW VERIFIED
[2023-11-15 14:17] LABS: Anion Gap 14 (12-20); Blood Urea Nitrogen 29 mg/dL (9-16); Calcium 9.9 mg/dL (8.4-10.2); Carbon Dioxide 24 mmol/L (22-29); Chloride 106 mmol/L (96-108); Estimated Glomerular Filt Rate 44; Glucose Random 110 mg/dL (60-115); Potassium 4.1 mmol/L (3.3-5.1); Sodium 140 mmol/L (135-145)
== END 2023-11-15 11:37 | disposition home or self-care (01) ==
LOC: HO.LAB 11:36
PROVIDERS: PCP Nurse Practitioner Family; Visit Provider Internal Medicine Cardiovascular Disease
DX: I50.20 Unspecified systolic (congestive) heart failure (principal); D64.9 Anemia, unspecified; I48.0 Paroxysmal atrial fibrillation; I25.10 Atherosclerotic heart disease of native coronary artery without angina pectoris; Z45.018 Encounter for adjustment and management of other part of cardiac pacemaker; Z95.810 Presence of automatic (implantable) cardiac defibrillator
CPT/HCPCS: 36415; 80048; 85025; 99212

== ENCOUNTER 2023-11-15 11:36 | Outpatient (AMB) | payer MEDICARE, SELFPAY ==
[2023-11-15 12:29] VITALS: BP 120/74; PULSE 70; BMI 27.5
--- NOTE | 2023-11-15 12:29 | A.OFFVIS_ITS ---
Vital Signs 11/15/23 12:29 Height 6 ft Weight 202 lb 13.204 oz BMI 27.5 BP 120/74 Blood Pressure Location Lt brachial Position Sitting Pulse 70 Intake Visit Reasons: 6 mth f/up (echo) Intake Note: 6 month follow-up with [facility] check feeling good Process Development Chemist Required: No Allergies No Known Allergies Allergy (Verified 07/25/23 17:33) Medication List - Last Reconciled 11/15/23 by Mark Jules MD apixaban (Eliquis) 5 mg PO BID 90 days atorvastatin 80 mg PO BEDTIME 90 days betamethasone dipropionate 0.05% 1 appl topical BID PRN ezetimibe 10 mg PO DAILY 90 days furosemide 30 mg (1.5 x 20 mg) PO DAILY 90 days levothyroxine 125 mcg PO DAILY@0600 metoprolol succinate ER 25 mg PO DAILY 90 days [id number]-lut-yeimi 250 mg (90 mg-160 mg) (Ocuvite Adult 50 Plus) 1 cap PO DAILY omeprazole 20 mg PO DAILY sacubitril-valsartan 49-51 mg (Entresto) 1 tab PO BID 90 days sertraline 150 mg (1.5 x 100 mg) PO DAILY 90 days spironolactone 12.5 mg (1/2 x 25 mg) PO DAILY 90 days tamsulosin 0.4 mg PO BEDTIME 90 days HPI Comments Details: Kevin comes for follow-up of his heart failure. He has been doing well overall from cardiac perspective. Denies any worsening heart failure symptoms. Takes all his medications. There was confusion regarding valsartan and Entresto although he says he does not take valsartan only takes Entresto. He denies any lightheadedness, syncope. No orthopnea, PND, leg edema, weight gain. Weight has remained stable. Denies any prolonged palpitations irregular heartbeat. Takes all his medications regularly. 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 Congenital bilateral renal cysts Chronic renal insufficiency, stage IV (severe) BPH (benign prostatic hyperplasia) ASHD (arteriosclerotic heart disease) Metal foreign body in lower leg HTN (hypertension) Myocardial infarct Surgical History Hx of rotator cuff surgery H/O colonoscopy Social History [facility] Patient Tobacco Use Status: Former Tobacco user Quit Date: 50 yrs ago Years Smoked: quit 40 years ago e-Cigarette/Vaping Use: Never Used Second Hand Smoke Exposure: No Advance Directives Date on File: 03/16/23 service: No Current occupational status: retired Cognitive needs: No Hearing needs: No Vision needs: No Review of Systems Const Denies chills, Denies fatigue, Denies fever(s), Denies frequent falls, Denies weakness, Denies weight gain and Denies weight loss ENT Denies dizziness Card Denies chest pain, Denies leg edema, Denies lightheadedness, Denies palpitations, Denies dyspnea, Denies dyspnea on exertion, Denies orthopnea and Denies other (loss of consciousness) Resp Denies cough, Denies dyspnea and Denies dyspnea on exertion GI Denies hematochezia and Denies change in stool character Musc Denies abnormal gait, Denies muscle weakness, Denies numbness, Denies radiating pain into limb and Denies tingling Neuro Denies Abnormal speech present, Denies abnormal gait, Denies dizziness, Denies frequent falls, Denies numbness, Denies tingling and Denies weakness Endo Denies fatigue and Denies palpitations Physical Exam Vital Signs: Last Vital Signs Pulse 70 11/15/23 12:29 BP 120/74 11/15/23 12:29 BMI result Body Mass Index 27.5 Const General: cooperative, comfortable, no acute distress, alert and awake Nutritional Appearance: overweight Orientation/consciousness: patient oriented x3 Limitations: no limitations Neck Neck: Yes trachea midline, Yes supple and Yes no JVD Chest Chest palpation & inspection: normal inspection of the chest Resp Effort & Inspection: normal respiratory effort Auscultation: clear to auscultation bilaterally Cardio Jugular venous distension: no JVD Palpation: abnormal PMI Rate: regular rate Rhythm: regular rhythm Heart sounds: S1 normal heart sound present, S2 normal heart sound present, no click, no gallops, no murmurs and no rubs Peripheral pulses: Peripheral pulses 2+ throughout GI Auscultation: normal bowel sounds Skin General skin exam: no rashes or lesions noted and ecchymosis Neuro General: patient oriented x3 and no focal motor deficits Speech: No Abnormal speech present Extrem General: Yes no clubbing, cyanosis or edema Office Procedures Cardiac Device Check Cardiac Device Check Details: Dual-chamber Medtronic ICD in place programmed in MVP mode at 60 beats per minute. Atrial ventricular sensing was adequate. Atrial ventricular pacing lead impedance was stable. Shock lead impedance is stable. Battery life is adequate. No significant arrhythmias detected. Atrial ventricular pacing thresholds adequate. 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 Will continue to further uptitrate neurohormonal modulation. Increasing Toprol-XL to 50 mg daily and Entresto to 97-103 mg b.i.d.. Advised to call me with any new symptoms including symptoms lightheadedness. Advised to monitor blood pressure at home. Continue current spironolactone therapy. Advise BNP. Continue current diuretic dose daily ana ght monitoring avoidance of salt loading. Heart failure management discussed in details. Additional diuretics as need be. He understands management well. Advised to maintain adequate hydration. Orthostatic precautions were discussed. (2) Paroxysmal atrial fibrillation: Code(s): I48.0 - Paroxysmal atrial fibrillation Category: Medical Plan: Paroxysmal atrial fibrillation without any overt symptoms at this point time. No significant burden. Will avoid antiarrhythmic drug therapy. However will benefit from rhythm control approach. Continue full oral anticoagulation, currently on Eliquis 5 mg b.i.d.. Semi annual renal function test should be pursued. (3) ICD (implantable cardioverter-defibrillator) in place: Code(s): Z95.810 - Presence of automatic (implantable) cardiac defibrillator Category: Medical Plan: ICD in place, working well. Reprogrammed for adequate function. Will follow remotely for heart failure as well as device check. Follow up in the clinic in 6 months time. (4) CAD (coronary artery disease): Code(s): I25.10 - Atherosclerotic heart disease of [place] coronary artery without angina pectoris Category: Medical Plan: CAD status post prior myocardial infarction. Currently doing well with no symptoms of angina. Continue aggressive risk factor modification. Blood pressure is currently well optimized. Continue high-intensity statin therapy. Target goal LDL closer to 60 mg/dL currently on full oral anticoagulation will therefore avoid aspirin therapy to reduce bleeding risk. Follow up in the clinic in 6 months time, sooner p.r.n.. Thank you for allowing me to partake in his care Orders: Orders Basic Metabolic Panel Today I50.20 - Unspecified systolic (congestive) heart failure Medications: New sacubitril-valsartan 97-103 mg (Entresto) 1 tab PO BID 180 tabs 1RF metoprolol succinate ER (Toprol XL) 50 mg PO DAILY 90 tabs 3RF Discontinued metoprolol succinate ER Discontinued Reason: Change Referral Type 25 mg PO DAILY 90 days 90 tabs 1RF valsartan Discontinued Reason: Doctor's Order 80 mg PO BID 60 tabs 1RF Coding Level of Care Code Est Pt Level 4 (20464) Diagnoses Systolic CHF I50.20 Paroxysmal atrial fibrillation I48.0 ICD (implantable cardioverter-defibrillator) in place Z95.810 CAD (coronary artery disease) I25.10 CPT Codes Cardiac Device Check - Cardiac Device 5: [id number]-[id number] Cardiac Device Check, dual lead implantable defibrillator ([id number])
== END 2023-11-15 12:51 | disposition home or self-care (01) ==
PROVIDERS: PCP Nurse Practitioner Family; Visit Provider Internal Medicine Cardiovascular Disease
DX: I50.20 Unspecified systolic (congestive) heart failure (principal); I48.0 Paroxysmal atrial fibrillation; Z95.810 Presence of automatic (implantable) cardiac defibrillator; I25.10 Atherosclerotic heart disease of native coronary artery without angina pectoris
CPT/HCPCS: 93283; 99214

== ENCOUNTER → 2023-11-17 12:25 | Outpatient (REF) | payer MEDICARE, SELFPAY ==
--- NOTE | 2023-11-17 12:29 | CA_ITS ---
Transthoracic Echocardiogram Amended Patient (Last, First, Middle): Kevin Aguero, Gender: Male Date of : 1950 Age: 73 Procedure Date: 11/17/2023 Procedure Type: Transthoracic Echocardiogram Location: OP Height: 182.88 cm Weight: 90.72 kg BSA: 2.13 m2 Heart Rate: 79 bpm BP: 120 / 74 mmHg Bale Opener: JOSE Referring MD: Mark Jules MD Molder Machine Tender: Mark Jules MD Symptoms: I50.20 - Unspecified systolic (congestive) heart failure Study Quality: Fair ECG Rhythm: Sinus Conclusions: - 1. Severely dilated left ventricle with severely reduced LV ejection fraction 25-30% with grade 2 diastolic dysfunction with regional wall motion abnormality consistent with ischemic cardiomyopathy 2. Moderately reduced RV systolic function 3. Mild aortic stenosis 4. Moderate to severe mitral regurgitation 5. Moderately elevated right ventricular systolic pressure 6. No gross pericardial effusion Findings Left Ventricle Severely increased left ventricular cavity size. There is normal left ventricular wall thickness. The left ventricular systolic function is severely decreased. The visually estimated ejection fraction is between 25 30%. Spectral Doppler is indicative of a pseudonormal filling pattern. E/E prime ratio is >15, consistent with elevated filling pressures. Evidence suggests grade II (moderate) diastolic dysfunction. Peak GLS is -6.9%, which is markedly reduced. Wall Motion Rest Echo Findings The inferolateral wall, the apical anterior, mid anterior, apical lateral, mid anterolateral, and mid anteroseptal segments are hypokinetic. The inferoseptal wall, the basal inferior, mid inferior, and apical septum segments are akinetic. The apex and apical inferior segments are dyskinetic. All other scored wall segments showed normal motion. Right Ventricle Normal right ventricular cavity size. There is moderately decreased right ventricular systolic function. Atria The left atrium is moderately dilated. There is no evidence of interatrial shunt. The right atrium is mildly dilated. Aortic Valve There is moderate thickening of the aortic valve. There is mild aortic valve stenosis. The peak aortic velocity is 1.86 m/s with a calculated peak gradient of 14 mmHg. The mean gradient is 8 mmHg. The aortic valve area is 1.52 cm2. There is no aortic valve regurgitation. Mitral Valve There is mild anterior and posterior mitral leaflet thickening. The posterior mitral leaflet has restricted mobility. There is moderate to severe mitral valve regurgitation. The mitral regurgitation jet is directed posteriorly. There is no mitral valve stenosis. Pulmonic Valve The pulmonic valve is likely normal. There is trace pulmonic valve regurgitation. Tricuspid Valve Normal tricuspid valve structure. There is mild tricuspid valve regurgitation. Normal right atrial pressure. Moderate pulmonary hypertension is present. Great Vessels The pulmonary artery was not well visualized. There is no dilatation of the ascending aorta measuring 3.30 cm. Small plaque is seen in the sino tubular ridge. Venous The inferior vena cava is normal in size and collapses greater than 50% with inspiration. Pericardium/Pleural There is no evidence of pericardial effusion. Prior Study Comparison Changes noted compared to prior study dated: 11/19/2022. LV systolic function is improved. mitral regurgitation is worse. RV systolic pressure is elevated Measurements 2D Linear Measurements IVSd: 0.61 0.6-0.9/0.6-1.0 cm LVIDd: 7.42 3.9-5.3/4.2-5.9 cm LVIDd Index: 3.48 2.4-3.2/2.2-3.1 cm/m2 LVIDs: 6.56 2.0-3.6 cm LVPWd: 0.74 0.7-1.1 cm LA Diam: 4.90 2.7-3.8/3.0-4.0 cm LAIDs Index: 2.30 1.5-2.3 cm/m2 LV Mass: 277.37 67-162/88-224 g LV Mass Index: 130.22 43-95/49-115 g/m2 LVOT Diam: 2.10 3.0+(-)1.3 cm 2D Volumes LA Vol: 44.50 2D Systolic Function EF 4C: 38.70 >55% EF 2C: 20.00 >55% EF BiP: 30.70 >55% Mitral Valve MV Pk E: 0.96 MV PK A: 0.39 MV Decel Time: 112.00 E/A: 2.50 E'Medial: 3.15 E/E' Med: 30.50 PHT: 33.00 MVA PHT: 6.67 Decel [place]: 8.56 MR Vol - PW Dopp: 44.94 MR VTI: 1.07 MR ERO: 42.00 MR Alias Stanislaw: 0.40 MR RAD: 0.80 Aortic Valve AoV Pk [place]: 1.86 AoV Mn [place]: 1.32 AoV VTI: 0.34 AoV Pk Grad: 14.00 Aov Mn Grad: 8.00 ALYSSA Cont.VTI: 1.52 AI Pk [place]: 3.25 AI [place]: 1.86 LVOT LVOT Pk [place]: 0.83 LVOT Mn [place]: 0.58 LVOT VTI: 0.15 LVOT Pk Grad: 3.00 LVOT Mn Grad: 2.00 LVOT Diam: 2.10 LVOT Area: 3.46 Diastolic Function MV Pk E: 0.96 MV Pk A: 0.39 E/A: 2.50 E'Medial: 3.15 E/E' Med: 30.50 Right Ventricle TAPSE (mm): 14.10 TVS' Stan[place]: 10.70 Tricuspid Valve TR Pk [place]: 3.60 TR Pk Grad: 52.00 RA Press: 3.00 RVSP: 55.00 Great Vessels Aorta Sinus of Valsalva: 2.70 2.0-3.5 cm Ao Asc: 3.30 2.1-3.4 cm Pulmonary Valve PV Pk Stan[place]: 0.81 Peak PV Grad: 3.00 Updated in Other Vendor System with Status of Final Mark Jules MD electronically signed on 11/18/2023 9:32:31 AM with status of Final
== END ==
LOC: HO.CARD 12:25
PROVIDERS: PCP Nurse Practitioner Family; Visit Provider Internal Medicine Cardiovascular Disease
DX: I50.20 Unspecified systolic (congestive) heart failure (principal)
CPT/HCPCS: 93306; 93356

== ENCOUNTER → 2023-11-17 12:29 | Outpatient (BNV) | payer MEDICARE, SELFPAY | PROVIDERS: PCP Nurse Practitioner Family; Visit Provider Internal Medicine Cardiovascular Disease | DX: I50.20 Unspecified systolic (congestive) heart failure (principal); I34.0 Nonrheumatic mitral (valve) insufficiency; I36.1 Nonrheumatic tricuspid (valve) insufficiency; I35.0 Nonrheumatic aortic (valve) stenosis | CPT/HCPCS: 93306; 93356 ==

== ENCOUNTER 2023-11-24 09:51 | Outpatient (AMB) | payer MEDICARE, SELFPAY ==
--- NOTE | 2023-11-24 10:29 | A.OFFPC_ITS ---
Vital Signs 11/24/23 10:33 Height 6 ft Weight 206 lb BMI 27.9 BP 110/66 Blood Pressure Location Rt brachial Position Sitting Pulse 70 Pulse Source Pulse Oximeter Pulse Oximetry (%) 98 Oxygen Delivery Method Room Air Intake Visit Reasons: 3 Month F/U Allergies No Known Allergies Allergy (Verified 11/24/23 10:33) Tobacco use date assessed: 07/25/23 Dental Screening Dental Screen Date: 07/25/23 HPI 3 Month F/U HPI Details HTN: Blood pressure is stable, managed with furozemide 30mg, metoprolol 50mg, entresto 97-103mg, and spironolactone 12.5mg. Denies chest pain, shortness of breath, headache, dizziness, and blurred vision. 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 Congenital bilateral renal cysts Chronic renal insufficiency, stage IV (severe) BPH (benign prostatic hyperplasia) ASHD (arteriosclerotic heart disease) Metal foreign body in lower leg HTN (hypertension) Myocardial infarct Surgical History Hx of rotator cuff surgery H/O colonoscopy Social History Housing: Condominium Patient Tobacco Use Status: Former Tobacco user Quit Date: 50 yrs ago Years Smoked: quit 40 years ago e-Cigarette/Vaping Use: Never Used Second Hand Smoke Exposure: No Advance Directives Date on File: 03/16/23 service: No Current occupational status: retired Cognitive needs: No Hearing needs: No Vision needs: No Questionnaire PHQ-9 Over the last 2 weeks, how often have you been bothered by any of the following problems? 80715 - PHQ-9 Billing: Patient declined-do not bill Source: Developed by Drs. Kevin Castaneda, Sofya Eastman, Rj Clemens and colleagues, with an educational kimi from [employer]. Thrive Questionnaire Date Thrive assessed: 07/25/23 DANNY-7 AMB Questionnaire DANNY-7 Date DANNY - 7 assessed: 07/25/23 Source: Developed by Drs. Kevin Castaneda, Sofya Eastman, Rj Clemens and colleagues, with an educational kimi from [employer]. DANNY-7 Assessment Billing DANNY-7 Assessment Tool: pt declined-do not bill Review of Systems Const Reports as per HPI Physical exam (Primary Care) Vital Signs: Last Vital Signs Pulse 70 11/24/23 10:33 BP 110/66 11/24/23 10:33 Pulse Ox 98 11/24/23 10:33 Oxygen Delivery Method Room Air 11/24/23 10:33 BMI result Body Mass Index 27.9 Tobacco/Smoking Status: Tobacco use Status Tobacco use date assessed 07/25/23 11/24/23 10:29 Patient Tobacco Use Status Former Tobacco user 11/24/23 10:29 e-Cigarette/Vaping Use Never Used 11/24/23 10:29 Thrive Assessment: Date of Thrive Assessment Date Thrive assessed 07/25/23 11/24/23 10:29 Const General: cooperative Orientation/consciousness: patient oriented x3 Resp Effort & Inspection: normal respiratory effort Auscultation: clear to auscultation bilaterally Cardio Other: difficult to auscultate Rate: regular rate Rhythm: regular rhythm Heart sounds: S1 normal heart sound present and S2 normal heart sound present Neuro General: patient oriented x3 Extrem Right lower extremity: no edema Left lower extremity: no edema Psych Appearance: grossly normal Mental Status: mental status grossly normal Speech and movement: Normal speech and movement present Affect: normal affect Attitude: cooperative Thought process: Normal thought process present Thought content: Normal thought content present Insight: Good insight present (Psych) Judgement: Good judgement present (Psych) Assessment and Plan Assessment & Plan (1) HTN (hypertension): Code(s): I10 - Essential (primary) hypertension Qualifiers: Hypertension type: primary hypertension Qualified Code(s): I10 - Essential (primary) hypertension Plan: Stable, labs ordered Plan The patient agreed to the use of a director of graduate medical education for this encounter. Scribed for RENEE Whalen by Becca Kim director of graduate medical education, on 11/24/2023 at 10:40 EST. Orders: Orders Complete Blood Count Auto Diff Today I10 - Essential (primary) hypertension Comprehensive [place]. Panel Fast Today I10 - Essential (primary) hypertension Lipid Panel Today I10 - Essential (primary) hypertension TSH reflex Free T4 Today I10 - Essential (primary) hypertension UA CC w/rflx Micro + Cult Today I10 - Essential (primary) hypertension Coding Level of Care Code Est Pt Level 3 (38417) Diagnoses Primary hypertension I10 Hypertension type: primary hypertension
[2023-11-24 10:33] VITALS: BP 110/66; PULSE 70; O2SAT 98; BMI 27.9
== END 2023-11-24 10:57 | disposition home or self-care (01) ==
PROVIDERS: PCP Nurse Practitioner Family; Visit Provider Nurse Practitioner Family
DX: I10 Essential (primary) hypertension (principal)
CPT/HCPCS: 99213

== ENCOUNTER 2024-01-24 15:33 | Outpatient (AMB) | payer MEDICARE, SELFPAY ==
[2024-01-24 15:41] VITALS: BP 102/66; PULSE 72; TEMP 36.6; O2SAT 98
--- NOTE | 2024-01-24 15:41 | AM.OFFWIN_ITS ---
Intake Vital Signs 01/24/24 15:41 Height 6 ft BP 102/66 Blood Pressure Location Lt brachial Position Sitting Pulse 72 Pulse Source Pulse Oximeter Temp 97.8 F Temp Source Oral Pulse Oximetry (%) 98 Oxygen Delivery Method Room Air Intake Visit Reasons: EP weak, dizzy, cold symptoms Intake Note: pt is here for weakness and dizziness Patient Tobacco Use Status: Former Tobacco user Allergies No Known Allergies Allergy (Verified 01/24/24 15:46) Do you need a note to return to daycare/school/sports/work: No HPI HPI Comments History of Present Illness Details Patient is a 73yo M who presents to office with viral illness complaint States symptoms x a few days Initially he had congestion, generalized fatigue, body aches, weakness and dizziness He said subjective fever/chills Rested at home as management His at home covid tests were invalid/ He said he is feeling much better No continual dizziness States current toothache to R lower posterior gums without facial edema, throat tightness of ST States minimal cough without CP or SOB No syncope, visual changes or HT Has not tried any cold of cough medicine His family friend nurse recommended he come for covid test [facility] Medical History (Updated 01/24/24 @ 16:23 by Karo Gonzalez PA-C) HTN (hypertension) Chronic anemia Elevated cholesterol CAD (coronary artery disease) Paroxysmal atrial fibrillation Thrombocytopenia Systolic CHF Fatty liver Macular degeneration of right eye ICD (implantable cardioverter-defibrillator) in place Hypothyroid GERD (gastroesophageal reflux disease) Depression, major, 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 Congenital bilateral renal cysts Chronic renal insufficiency, stage IV (severe) BPH (benign prostatic hyperplasia) ASHD (arteriosclerotic heart disease) Metal foreign body in lower leg Myocardial infarct Surgical History Hx of rotator cuff surgery H/O colonoscopy Social History Housing: Condominium Patient Tobacco Use Status: Former Tobacco user Years Smoked: quit 40 years ago e-Cigarette/Vaping Use: Never Used Second Hand Smoke Exposure: No Advance Directives Date on File: 03/16/23 service: No Current occupational status: retired Cognitive needs: No Hearing needs: No Vision needs: No Review of Systems Const Reports chills (previously), Reports fatigue, Reports fever(s) (reviously), Denies frequent falls and Denies headache(s) Eyes Denies change in vision ENT Reports dizziness (previously), Denies otalgia, Denies headache(s), Reports nasal discharge, Denies sinus pressure, Denies sore throat and Denies throat swelling Card Denies chest pain, Denies syncope and Denies dyspnea Resp Denies chest congestion, Reports cough and Denies dyspnea GI Denies abdominal pain and Denies vomiting Musc Reports myalgias (previously) Skin/Breast Denies rash Neuro Reports dizziness (previously), Denies syncope, Denies frequent falls and Denies headache(s) Endo Reports fatigue Aller/Immun Denies throat swelling Physical Exam Vital Signs: Last Vital Signs Temp 97.8 F 01/24/24 15:41 Pulse 72 01/24/24 15:41 BP 102/66 01/24/24 15:41 Pulse Ox 98 01/24/24 15:41 Oxygen Delivery Method Room Air 01/24/24 15:41 General: Non-toxic, NAD. Speaking full sentences. Skin: Warm dry throughout Eye: EOMI, PERRL HENT: Airway patent. Uvula midline. No pharyngeal erythema or edema. No MULTICULTURAL SERVICES LIBRARIAN. Mucosal membranes moist. R lower gingivae along posterior molar region is irritated with some gingival recession. No visualized or palpable abscess or drainage. No submandibular induration or edema. Bilateral canals clear. TM non-erythematous, non-bulging. No TM perforation or hemotympanum noted. Respiratory: CTA bilaterally. No wheezes, rales or rhonchi Cardiac: RRR. No murmur MSK: Full ROM extremities. Neurology: A/O No aphasia or facial droop. Psych: Good mood and affect Assessment & Plan Assessment & Plan (1) Viral infection: Code(s): B34.9 - Viral infection, unspecified Plan: Pt seen and evaluated COVID/flu/RSV swab obtained continue rest and fluids at home Warm salt water garggles for gums and f/u with dentist F/U with PCP Pt gave verbal understanding and had no additional questions at time of d/c Orders: Orders SARS-CoV2/FLU/RSV Today B34.9 - Viral infection, unspecified Coding Level of Care Code Est Pt Level 3 (44718) Diagnoses Viral infection B34.9
== END 2024-01-24 16:37 | disposition home or self-care (01) ==
PROVIDERS: PCP Nurse Practitioner Family; Visit Provider Physician Assistant
DX: B34.9 Viral infection, unspecified (principal)
CPT/HCPCS: 99213

== ENCOUNTER 2024-01-25 11:08 | Outpatient (REF) | payer MEDICARE, SELFPAY ==
[2024-01-25 12:17] LABS: Influenza A PCR NEGATIVE (Negative); Influenza B PCR NEGATIVE (Negative); Resp Syncy Virus RNA Qual PCR NEGATIVE (Negative); SARS COV2 PCR INHOUSE NEGATIVE (Negative)
== END 2024-01-25 11:09 | disposition home or self-care (01) ==
LOC: HO.CHCLNP 11:08
PROVIDERS: Visit Provider Physician Assistant
DX: B34.9 Viral infection, unspecified (principal)
CPT/HCPCS: 0241U

== ENCOUNTER → 2024-01-25 23:59 | Outpatient (BNV) | payer MEDICARE, SELFPAY ==
--- NOTE | 2024-01-31 11:57 | MHC.OFFVIS ---
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 Congenital bilateral renal cysts Chronic renal insufficiency, stage IV (severe) BPH (benign prostatic hyperplasia) ASHD (arteriosclerotic heart disease) Metal foreign body in lower leg Myocardial infarct Surgical History Hx of rotator cuff surgery H/O colonoscopy [facility] Patient Tobacco Use Status: Former Tobacco user Years Smoked: quit 40 years ago e-Cigarette/Vaping Use: Never Used Second Hand Smoke Exposure: No Advance Directives Date on File: 03/16/23 service: No Current occupational status: retired Cognitive needs: No Hearing needs: No Vision needs: No Office Procedures Cardiac Device Check Cardiac Device Check Details: Remote ICD report generated 01/25/2024. ICD function is adequate [id number] Cardiac Interrogation, implant defibrillator w/interim Procedure code (CPT) selection complete Quality Reporting (2019) Adult ([facility] 138/08/25/68) Smoking risk assessment performed?: Yes Patient Tobacco Use Status: Former Tobacco user Assessment & Plan Assessment & Plan (1) ICD (implantable cardioverter-defibrillator) in place: Code(s): Z95.810 - Presence of automatic (implantable) cardiac defibrillator Category: Medical Plan: See above Coding Level of Care Code Procedure Only Diagnoses ICD (implantable cardioverter-defibrillator) in place Z95.810 CPT Codes Cardiac Device Check - Cardiac Device 13: [id number] Cardiac Interrogation, implant defibrillator w/interim ([id number])
== END ==
PROVIDERS: PCP Nurse Practitioner Family; Visit Provider Internal Medicine Cardiovascular Disease
DX: Z45.02 Encounter for adjustment and management of automatic implantable cardiac defibrillator (principal)
CPT/HCPCS: 93295

== ENCOUNTER 2024-04-24 14:45 | Outpatient (REF) | payer MEDICARE, SELFPAY ==
[2024-04-24 17:44] LABS: Prostate Specific Antigen Scr 1.76 ng/mL (<0.05-4.0)
== END 2024-04-24 14:46 | disposition home or self-care (01) ==
LOC: HO.HMGCLDS 14:45
PROVIDERS: PCP Nurse Practitioner Family; Visit Provider Nurse Practitioner Family
DX: R35.0 Frequency of micturition (principal); Z12.5 Encounter for screening for malignant neoplasm of prostate
CPT/HCPCS: 36415; 84153; 87086

== ENCOUNTER 2024-04-24 20:29 | Observation (INO) | payer MEDICARE, SELFPAY ==
--- NOTE | ~2024-04-24 | XR_ITS ---
EXAMINATION: XR CHEST CLINICAL INFORMATION: Dyspnea. COMPARISON: April 09, 2023 TECHNIQUE: 2 views of the chest were obtained. FINDINGS: The cardiac silhouette is enlarged but stable. Pacer leads are again seen in place. There is mild pulmonary vascular congestion. There is layering right lung base opacity. The lungs are otherwise clear. The bony structures and the soft tissues are unremarkable. XR/XR chest 2V IMPRESSION: Cardiomegaly and pulmonary vascular congestion. Consider developing fluid overload or congestive heart failure. Layering right lung base opacity is likely secondary to a small pleural effusion. Electronically signed by: Angel Washington MD 04/24/2024 11:41 PM EDT
[2024-04-24 21:31] VITALS: BP 90/56; PULSE 76; RESP 18; TEMP 36.5; O2SAT 96; BMI 27.1
--- NOTE | 2024-04-24 21:37 | ECG_ITS ---
Test Reason : DYSPNEA Blood Pressure : / mmHG Vent. Rate : 075 BPM Atrial Rate : 075 BPM P-R Int : 184 ms QRS Dur : 122 ms QT Int : 372 ms P-R-T Axes : 059 021 037 degrees QTc Int : 415 ms Normal sinus rhythm Non-specific intra-ventricular conduction delay Nonspecific ST and T wave abnormality Abnormal ECG When compared with ECG of 09-APR-2023 13:41, Premature atrial complexes are no longer Present ST now depressed in Anterior leads Nonspecific T wave abnormality now evident in Inferior leads Referred By: Generic ED Physician Electronically Signed By:Óscar Pacheco
[2024-04-24 22:04] LABS: Basophils Percent Auto 0.7 % (0-2); Lymphocytes Absolute Auto 0.8 X10*3/uL (1.2-4.9); PLT CLUMP 1; SCAN SMEAR FLAG 1
[2024-04-24 22:06] LABS: Eosinophils Absolute Auto 0.1 X10*3/uL (0.0-0.4); Hematocrit 31.9 % (42.0-52.0); Hemoglobin 10.3 g/dl (14.0-18.0); Imm Gran Abs Auto 0.19 X10*3/uL (0.00-0.03); Imm Gran Pct Auto 3.3 % (0.0-0.4); Lymphocytes Percent Auto 14.1 % (20-40); MANUAL DIFF FLAG SCAN; Mean Corpuscular HGB Conc 32.3 g/dl (31.0-36.0); Mean Corpuscular Hemoglobin 29.2 pg (27.0-33.0); Mean Corpuscular Volume 90.4 fL (80.0-98.0); Monocytes Percent Auto 17.2 % (2-11); Neutrophils Absolute Auto 3.7 x10*3/uL (2.0-8.3); Neutrophils Percent Auto 63.7 % (45-73); Red Blood Count 3.53 X10*6/uL (4.60-5.80); Red Cell Distribution Width 15.3 % (11.0-16.0)
[2024-04-24 22:20] LABS: Alanine Aminotransferase 57 U/L (0-40); Albumin Level 4.2 g/dL (3.5-5.0); Alkaline Phosphatase 103 U/L (39-117); Anion Gap 13 (12-20); Aspartate Amino Transferase 40 U/L (5-37); Bilirubin Total 0.9 mg/dL (0.0-1.0); Blood Urea Nitrogen 30 mg/dL (9-16); Calcium 9.4 mg/dL (8.4-10.2); Carbon Dioxide 24 mmol/L (22-29); Chloride 110 mmol/L (96-108); Creatinine Clr Calc Pharmacy 40.2; Estimated Glomerular Filt Rate 38; Glucose Random 148 mg/dL (60-115); Potassium 4.7 mmol/L (3.3-5.1); Sodium 142 mmol/L (135-145); Total Protein 6.8 g/dL (6.5-8.0)
[2024-04-24 22:24] LABS: B Type Natriuretic Peptide 2775 pg/mL (<100)
[2024-04-24 22:27] LABS: Troponin-I High Sensitivity 22.8 ng/L (<3.5-35.0)
[2024-04-24 22:29] LABS: Platelet Count 123 X10*3/uL (160-400); SLIDE REVIEW VERIFIED; White Blood Count 5.8 X10*3/uL (4.8-10.8)
[2024-04-24 23:45] VITALS: BP 101/65; PULSE 74; RESP 20; TEMP 36.8; O2SAT 96
--- NOTE | 2024-04-24 23:48 | PC.NURSE ---
pt from [facility], assume care of pt at this time. Pt is able to talk in complete sentences, no shortness of breathe noted.
[2024-04-25] VITALS (8 sets, daily range): BP systolic 104–141; BP diastolic 61–79; PULSE 69–84; RESP 16–20; TEMP 36.1–36.9; O2SAT 93–96
--- NOTE | 2024-04-25 00:14 | ED.SOB ---
HPI - SOB/Dyspnea General Chief Complaint: Dyspnea Stated Complaint: SOB Time Seen by Provider: 04/25/24 00:13 Source: patient Mode of arrival: ambulatory Limitations: no limitations History of Present Illness ED Provider: claudia WISE Narrative: 73 yo male with history of PAF on Eliquis, HFrEF s/p AICD, HTN, comes here for increased shortness of breath for last few weeks got worse in last 3 days patient is on furosemide , patient restarted spironolactone 2 days ago does have cough , when he lays flat in the night no fever no chills no chest pain no increased leg edema Related Data Home Medications ?Medication ?Instructions ?Recorded ?Confirmed [id number] 250 mg-dha 90 1 cap PO DAILY 04/09/23 11/15/23 mg-epa 160 yo-abpi-agla-zeax capsule (Ocuvite Adult 50 Plus) Previous Rx's ?Medication ?Instructions ?Recorded sertraline 100 mg tablet 150 mg (1.5 x 100 mg) PO DAILY 90 08/15/23 days #135 tabs apixaban 5 mg tablet (Eliquis) 5 mg PO BID 90 days #180 tabs 10/20/23 omeprazole 20 mg capsule,delayed 20 mg PO DAILY #90 caps 10/21/23 release spironolactone 25 mg tablet 12.5 mg (1/2 x 25 mg) PO DAILY 90 10/25/23 days #45 tabs metoprolol succinate 50 mg 50 mg PO DAILY #90 tabs 11/15/23 tablet,extended release 24 hr (Toprol XL) sacubitril 97 mg-valsartan 103 mg 1 tab PO BID #180 tabs 12/07/23 tablet (Entresto) levothyroxine 125 mcg tablet 125 mcg PO DAILY@0600 #90 tabs 12/11/23 ezetimibe 10 mg tablet 10 mg PO DAILY 90 days #90 tabs 12/25/23 furosemide 20 mg tablet 20 mg PO DAILY 90 days #90 tabs 02/09/24 betamethasone dipropionate 0.05 % 1 appl topical BID PRN skin 03/07/24 topical cream irritation #45 grams atorvastatin 80 mg tablet 80 mg PO BEDTIME 90 days #90 tabs 03/12/24 tamsulosin 0.4 mg capsule 0.4 mg PO BEDTIME 90 days #90 caps 03/12/24 Allergies Allergy/AdvReac Type Severity Reaction Status Date / Time No Known Allergies Allergy Verified 04/24/24 21:36 Review of Systems Review of Systems: Yes all other systems are reviewed and are negative [facility] Past Medical History Medical History HTN (hypertension) Chronic anemia Elevated cholesterol CAD (coronary artery disease) Paroxysmal atrial fibrillation Thrombocytopenia Systolic CHF Fatty liver Macular degeneration of right eye ICD (implantable cardioverter-defibrillator) in place Hypothyroid GERD (gastroesophageal reflux disease) Depression, major, 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 Congenital bilateral renal cysts Chronic renal insufficiency, stage IV (severe) BPH (benign prostatic hyperplasia) ASHD (arteriosclerotic heart disease) Metal foreign body in lower leg Myocardial infarct Surgical History Hx of rotator cuff surgery H/O colonoscopy Social History [facility] Patient Tobacco Use Status: Former Tobacco user Years Smoked: quit 40 years ago Smoked in Last 30 Days: No e-Cigarette/Vaping Use: Never Used Second Hand Smoke Exposure: No Use of substances other than those prescribed or required for medical reasons: No Advance Directives: Yes Advance Directives on File: Yes Advance Directives Date on File: 03/16/23 Do you have a plan to hurt others: No Plan service: No Current occupational status: retired Cognitive needs: No Hearing needs: No Vision needs: No Physical Exam Vital Signs: Vital Signs: Last Vital Signs Temp 98.3 F 04/24/24 23:45 Pulse 79 04/25/24 02:10 Resp 18 04/25/24 02:10 BP 114/61 04/25/24 02:10 Pulse Ox 94 04/25/24 02:10 O2 Del Method Room Air 04/25/24 02:10 BMI result Body Mass Index 27.1 Appearance: Alert. Oriented X3. No acute distress. Eyes: No pallor or icterus ENT: Pharynx normal. Oral Mucosa moist Neck: Normal inspection. Neck supple. CVS: Normal heart rate and rhythm. Pulses normal. Respiratory: No respiratory distress. Equal air entry bilateral, bilateral rales at bases Abdomen: Soft and nontender. Bowel sounds are present, no mass palpable, no CVA tenderness Skin: Skin warm and dry. Normal skin color. Normal skin turgor. Extremities: 2+ lower extremity edema. No calf tenderness Neuro: Oriented X 3. No motor deficit. Medications Administered Discontinued Medications Generic Name Dose Route Start Last Admin Trade Name Freq PRN Reason Stop Dose Admin Furosemide 40 mg 04/25/24 00:14 04/25/24 00:27 Furosemide 40 Mg/4 Ml Vial IVPUSH 04/25/24 00:15 40 mg ONCE ONE Administration Protocol Medical Decision Making Medical Decision Making [facility] Narrative: Patient with a echo stones shortness a breath workup showed elevated BNP and chest x-ray showed increased pulmonary vascular congestion admit patient for CHF exacerbation IV Lasix started Differential Diagnosis Differential Diagnoses: The differential diagnosis associated with the presentation includes CHF/JOSEPHINE/CKD Admission/Observation Consideration of admission/observation: Escalation of care including admission/observation considered Consult Healthcare Provider Management of the patient was discussed with: Hospitalist Lab Data [facility] Lab Attestation statement: I reviewed the patient's lab results. 04/25/24 04:49 04/25/24 04:49 Labs: Lab Results 04/24/24 Range/Units 21:55 WBC 5.8 (4.8-10.8) X10*3/uL RBC 3.53 L (4.60-5.80) X10*6/uL Hgb 10.3 L (14.0-18.0) g/dl Hct 31.9 L (42.0-52.0) % MCV 90.4 (80.0-98.0) fL MCH 29.2 (27.0-33.0) pg MCHC 32.3 (31.0-36.0) g/dl RDW 15.3 (11.0-16.0) % Plt Count 123 L (160-400) X10*3/uL MPV 11.0 (9.4-12.4) fL Immature Gran % (Auto) 3.3 H (0.0-0.4) % Neut % (Auto) 63.7 (45-73) % Lymph % (Auto) 14.1 L (20-40) % [place] % (Auto) 17.2 H (2-11) % Eos % (Auto) 1.0 (0-4) % Baso % (Auto) 0.7 (0-2) % Lymph # (Auto) 0.8 L (1.2-4.9) X10*3/uL [place] # (Auto) 1.0 (0.1-1.2) X10*3/uL Eos # (Auto) 0.1 (0.0-0.4) X10*3/uL Baso # (Auto) 0.0 (0.0-0.2) X10*3/uL Abs Immat Gran (auto) 0.19 H (0.00-0.03) X10*3/uL Absolute Neuts (auto) 3.7 (2.0-8.3) x10*3/uL Absolute Nucleated RBC 0.000 (0.0-0.012) X10*3/uL Nucleated RBC % (auto) 0.0 (0.0-0.2) /100WBC Smear Tech's Comments VERIFIED Sodium 142 (135-145) mmol/L Potassium 4.7 (3.3-5.1) mmol/L Chloride 110 H (96-108) mmol/L Carbon Dioxide 24 (22-29) mmol/L Anion Gap 13 (12-20) BUN 30 H (9-16) mg/dL Creatinine 1.74 H (0.5-1.4) mg/dL Estim Creat Clear Calc 40.2 Estimated GFR 38 Random Glucose 148 H (60-115) mg/dL Calcium 9.4 (8.4-10.2) mg/dL Total Bilirubin 0.9 (0.0-1.0) mg/dL AST 40 H (5-37) U/L ALT 57 H (0-40) U/L Alkaline Phosphatase 103 (39-117) U/L Troponin I High Sens 22.8 D (<3.5-35.0) ng/L B-Natriuretic Peptide 2775 H (<100) pg/mL Total Protein 6.8 (6.5-8.0) g/dL Albumin 4.2 (3.5-5.0) g/dL Independent Interpretation I performed an independent interpretation of an: EKG Interpretation: Normal sinus rhythm heart rate 75 beats per minute nonspecific intraventricular conduction delay nonspecific STT wave changes no acute ST elevation no acute ischemia Radiology Impression Discussion of test interpretation with radiology: I have reviewed the radiologist's reading. Radiologist Impression: [id number] [place] [address] XRay Report Signed Patient: Kevin Aguero MR#: [id number] : 1950 Acct:[id number] Age/Sex: 73 / M ADM Date: 04/24/24 Loc: .ED Attending Dr: Ordering Physician: Generic ED Physician Date of Service: 04/24/24 Procedure(s): XR chest 2V Accession Number(s): [id number] cc: Generic ED Physician; Karthikeyan Evans TELEPHONIC NURSE CASE MANAGER-BC~ EXAMINATION: XR CHEST CLINICAL INFORMATION: Dyspnea. COMPARISON: April 09, 2023 TECHNIQUE: 2 views of the chest were obtained. FINDINGS: The cardiac silhouette is enlarged but stable. Pacer leads are again seen in place. There is mild pulmonary vascular congestion. There is layering right lung base opacity. The lungs are otherwise clear. The bony structures and the soft tissues are unremarkable. XR/XR chest 2V IMPRESSION: Cardiomegaly and pulmonary vascular congestion. Consider developing fluid overload or congestive heart failure. Layering right lung base opacity is likely secondary to a small pleural effusion. Electronically signed by: Angel Washington MD 04/24/2024 11:41 PM EDT Discharge Plan Discharge Clinical Impression: Acute exacerbation of chronic heart failure Patient Disposition: Admitted As Inpatient
[2024-04-25] MEDS: Furosemide 40 MG/4 ML VIAL IVPUSH ×2 (00:27→08:00)
--- NOTE | 2024-04-25 01:24 | P.HPHOSP_ITS ---
History of Present Illness Date of Service: 04/25/24 Chief Complaint: Dyspnea This is a 73-year-old male with pertinent history of congestive heart failure with reduced ejection fraction status post ICD, paroxysmal atrial fibrillation on Eliquis, coronary artery disease, mixed hyperlipidemia, hypothyroidism, mood disorder, BPH, CKD who presents to the emergency department for evaluation of dyspnea. Patient states his symptoms have gotten worse in the last 3 days. His dyspnea is worse when he tries to walk even a few steps. Also worse when he lays flat in bed. He did notice lower extremity leg swelling. No fever, chills, chest pain or palpitations. No sick contacts. No nausea, vomiting, abdominal pain, changes in urinary or bowel habits. In the emergency department, imaging with central vascular congestion and pulmonary edema. BNP found to be elevated. Patient was given IV Lasix Review of Systems 2 Constitutional: Constitutional: Reports fatigue Cardiovascular: Cardiovascular: Reports dyspnea on exertion and Reports orthopnea Respiratory: Respiratory: Reports dyspnea on exertion Gastrointestinal: Gastrointestinal: Reports no additional gastrointestinal complaints Genitourinary: Genitourinary: Reports no additional male genitourinary complaints Endocrine: Endocrine: Reports fatigue [facility] Medical History HTN (hypertension) Chronic anemia Elevated cholesterol CAD (coronary artery disease) Paroxysmal atrial fibrillation Thrombocytopenia Systolic CHF Fatty liver Macular degeneration of right eye ICD (implantable cardioverter-defibrillator) in place Hypothyroid GERD (gastroesophageal reflux disease) Depression, major, 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 Congenital bilateral renal cysts Chronic renal insufficiency, stage IV (severe) BPH (benign prostatic hyperplasia) ASHD (arteriosclerotic heart disease) Metal foreign body in lower leg Myocardial infarct Surgical History Hx of rotator cuff surgery H/O colonoscopy Social History Housing: Condominium Patient Tobacco Use Status: Former Tobacco user Years Smoked: quit 40 years ago Smoked in Last 30 Days: No e-Cigarette/Vaping Use: Never Used Second Hand Smoke Exposure: No Use of substances other than those prescribed or required for medical reasons: No Advance Directives: Yes Advance Directives on File: Yes Advance Directives Date on File: 03/16/23 Do you have a plan to hurt others: No Plan service: No Current occupational status: retired Cognitive needs: No Hearing needs: No Vision needs: No Meds Allergies Allergy/AdvReac Type Severity Reaction Status Date / Time No Known Allergies Allergy Verified 04/24/24 21:36 Home Medications ?Medication ?Instructions ?Recorded ?Confirmed ?Last Taken ?Type [id number] 250 mg-dha 90 1 cap PO DAILY 04/09/23 11/15/23 04/08/23 History mg-epa 160 ra-jsqe-cwyv-zeax capsule (Ocuvite Adult 50 Plus) Physical Exam 2 Vital Signs and Narrative: Vital Signs: Last Vital Signs Temp 98.3 F 04/24/24 23:45 Pulse 83 04/25/24 01:18 Resp 20 04/25/24 01:18 BP 106/79 04/25/24 01:18 Pulse Ox 96 04/25/24 01:18 O2 Del Method Room Air 04/25/24 01:18 BMI result Body Mass Index 27.1 Elderly male lying in bed in no distress Neck supple, no JVD Regular rate and rhythm, S1-S2 heard Bilateral crackles present Abdomen soft nontender, no guarding, no rigidity Patient is awake, alert and oriented to self, place, time and person ; no focal motor deficit Psych: Normal mood Bilateral pedal edema Results Labs 04/24/24 21:55 04/24/24 21:55 Labs: Laboratory Results - last 24 hr 04/24/24 21:55 MCV 90.4 MCH 29.2 MCHC 32.3 RDW 15.3 Plt Count 123 L MPV 11.0 Immature Gran % (Auto) 3.3 H Neut % (Auto) 63.7 Lymph % (Auto) 14.1 L [place] % (Auto) 17.2 H Eos % (Auto) 1.0 Baso % (Auto) 0.7 Lymph # (Auto) 0.8 L [place] # (Auto) 1.0 Eos # (Auto) 0.1 Baso # (Auto) 0.0 Abs Immat Gran (auto) 0.19 H Absolute Neuts (auto) 3.7 Absolute Nucleated RBC 0.000 Nucleated RBC % (auto) 0.0 Smear Tech's Comments VERIFIED Anion Gap 13 Estim Creat Clear Calc 40.2 Estimated GFR 38 Random Glucose 148 H Calcium 9.4 Total Bilirubin 0.9 AST 40 H ALT 57 H Alkaline Phosphatase 103 Troponin I High Sens 22.8 D B-Natriuretic Peptide 2775 H Total Protein 6.8 Albumin 4.2 Imaging Radiologist's Impressions: Impressions Chest X-Ray 04/24/24 22:15 IMPRESSION: Cardiomegaly and pulmonary vascular congestion. Consider developing fluid overload or congestive heart failure. Layering right lung base opacity is likely secondary to a small pleural effusion. Electronically signed by: Angel Washington MD 04/24/2024 11:41 PM EDT RP Assessment and Plan (1) Acute CHF: Status: Acute Plan This is a 73-year-old male with pertinent history of congestive heart failure with reduced ejection fraction status post ICD, paroxysmal atrial fibrillation on Eliquis, coronary artery disease, mixed hyperlipidemia, hypothyroidism, mood disorder, BPH, CKD who presents to the emergency department for evaluation of dyspnea. #. Acute on chronic systolic heart failure: Initiating IV diuresis. On b- alfredo, entresto, spironolactone. Strict I's and O's. Low-salt diet. #. Paroxysmal atrial fibrillation on Eliquis and beta-alfredo #. Coronary artery disease: On high-intensity statin. Not on antiplatelet agent #. CKD stage III: Creatinine at baseline. Monitor with IV diuresis. #. Mixed hyperlipidemia: On Zetia and statin #. Hypothyroidism: On Synthroid #. Mood disorder: On sertraline #. BPH: On Flomax Med rec pending DVT prophylaxis: Eliquis Full code. Discussed with patient at bedside Quality Stroke Does the patient have a stroke diagnosis?: No VTE Prior VTE?: No VTE Risk Level:: Medical - moderate - high VTE Device Contraindication: Treatment Not Indicated VTE Drug Contraindication: N/A - Med Ordered
--- NOTE | 2024-04-25 01:52 | PC.NURSE ---
report given to Carley Farmer RN, pt to go to overflow
[2024-04-25 05:03] LABS: MANUAL DIFF FLAG NO
[2024-04-25 05:26] LABS: Basophils Percent Auto 0.6 % (0-2); Eosinophils Absolute Auto 0.1 X10*3/uL (0.0-0.4); Eosinophils Percent Auto 1.1 % (0-4); Hematocrit 32.4 % (42.0-52.0); Hemoglobin 10.2 g/dl (14.0-18.0); Imm Gran Abs Auto 0.12 X10*3/uL (0.00-0.03); Imm Gran Pct Auto 1.8 % (0.0-0.4); Lymphocytes Absolute Auto 0.9 X10*3/uL (1.2-4.9); Lymphocytes Percent Auto 13.4 % (20-40); Mean Corpuscular HGB Conc 31.5 g/dl (31.0-36.0); Mean Corpuscular Hemoglobin 28.2 pg (27.0-33.0); Mean Corpuscular Volume 89.5 fL (80.0-98.0); Mean Platelet Volume 11.3 fL (9.4-12.4); Monocytes Absolute Auto 1.1 X10*3/uL (0.1-1.2); Monocytes Percent Auto 16.6 % (2-11); Neutrophils Absolute Auto 4.4 x10*3/uL (2.0-8.3); Neutrophils Percent Auto 66.5 % (45-73); Platelet Count 121 X10*3/uL (160-400); Red Blood Count 3.62 X10*6/uL (4.60-5.80); Red Cell Distribution Width 15.5 % (11.0-16.0); White Blood Count 6.6 X10*3/uL (4.8-10.8)
[2024-04-25 05:36] LABS: Anion Gap 15 (12-20); Blood Urea Nitrogen 32 mg/dL (9-16); Carbon Dioxide 24 mmol/L (22-29); Chloride 109 mmol/L (96-108); Estimated Glomerular Filt Rate 38; Glucose Random 183 mg/dL (60-115); Potassium 4.3 mmol/L (3.3-5.1); Sodium 144 mmol/L (135-145)
[2024-04-25] MEDS: 0.9 % Sodium Chloride Flush 3 ML SYRINGE IVFLUSH ×2 (08:01→20:37)
--- NOTE | 2024-04-25 09:34 | PHA.MEDREC ---
Pharmacy Consult ? Medication Reconciliation Pharmacy has completed the medication reconciliation, spoke to patient at bedside who confirmed all medications as reflected. Said he also saw ENT and was put on an allergy pill but was unsure of the name and dose.
--- NOTE | 2024-04-25 10:50 | PM.EVENT ---
Event Note Date of Service: 04/25/24 Event Note: Day hospitalist update S: dyspnea improved, neg 500 mL thus far, no chest pain O: Temp Pulse Resp BP Pulse Ox O2 Del Method 97.8 F 84 20 141/69 H 95 Room Air 04/25/24 07:32 04/25/24 07:32 04/25/24 07:32 04/25/24 07:32 04/25/24 07:32 04/25/24 07:32 Gen: in no acute distress HEENT: sclera anicteric, moist mucus membranes Neck: supple, JVD present Lungs: clear to auscultation bilaterally Heart: regular rate and rhythm, no murmurs Abd: soft, non-tender, non-distended Ext: 1+ bilateral leg edema Skin: warm/well-perfused Neuro: alert and oriented x3, no focal findings Psych: appropriate affect Laboratory Results - last 24 hr 04/24/24 04/25/24 21:55 04:49 WBC 5.8 6.6 RBC 3.53 L 3.62 L Hgb 10.3 L 10.2 L Hct 31.9 L 32.4 L MCV 90.4 89.5 MCH 29.2 28.2 MCHC 32.3 31.5 RDW 15.3 15.5 Plt Count 123 L 121 L MPV 11.0 11.3 Immature Gran % (Auto) 3.3 H 1.8 H Neut % (Auto) 63.7 66.5 Lymph % (Auto) 14.1 L 13.4 L [place] % (Auto) 17.2 H 16.6 H Eos % (Auto) 1.0 1.1 Baso % (Auto) 0.7 0.6 Lymph # (Auto) 0.8 L 0.9 L [place] # (Auto) 1.0 1.1 Eos # (Auto) 0.1 0.1 Baso # (Auto) 0.0 0.0 Abs Immat Gran (auto) 0.19 H 0.12 H Absolute Neuts (auto) 3.7 4.4 Absolute Nucleated RBC 0.000 0.000 Nucleated RBC % (auto) 0.0 0.0 Smear Tech's Comments VERIFIED Sodium 142 144 Potassium 4.7 4.3 Chloride 110 H 109 H Carbon Dioxide 24 24 Anion Gap 13 15 BUN 30 H 32 H Creatinine 1.74 H 1.75 H Estim Creat Clear Calc 40.2 40.0 Estimated GFR 38 38 Random Glucose 148 H 183 H Calcium 9.4 10.0 D Total Bilirubin 0.9 AST 40 H ALT 57 H Alkaline Phosphatase 103 Troponin I High Sens 22.8 D B-Natriuretic Peptide 2775 H Total Protein 6.8 Albumin 4.2 A/P: d1 73yo M with HFrEF [25-30% + gr2 diastolic dysfunction November 2023], ischemic CM presenting with 3 wk of progressive + exertional dyspnea, admitted for CHF exacerbation acute/cyhronic HFrEF - IV furosemide - monitor I/O, daily weights, BNP, BMP, and Mg with diuresis. - Cardiology consult- add Jardiance? - continue metoprolol succinate, Entresto, spironolactone pAF - continue apixaban, metoprolol succinate CAD - continue ezetimibe, atorvastatin, metoprolol succinate CKD3 - SCr at baseline; monitor with diuresis hypothyroidism - continue LT4 mood disorder - sertraline BPH - tamsulosin VTE ppx - apixaban dispo - anticipate home with VNA In my clinical judgment, the patient requires continued hospitalization for the following reasons: IV diuresis Time Spent With Patient Time: Total time managing care of this patient today ____ minutes.
[2024-04-25] MEDS: Metoprolol Succinate ER 50 MG TAB.ER.24H PO (10:58)
[2024-04-25] MEDS: Sertraline HCL 50 MG TABLET 150 MG PO (10:58)
[2024-04-25] MEDS: Spironolactone 25 MG TABLET 12.5 MG PO (10:58)
[2024-04-25] MEDS: Levothyroxine Sodium 125 MCG TABLET PO (10:58)
[2024-04-25] MEDS: Apixaban 5 MG TABLET PO ×2 (10:58→20:32)
[2024-04-25] MEDS: Omeprazole 20 MG CAPSULE.DR PO (10:58)
[2024-04-25] MEDS: Sacubitril/Valsartan 97/103 1 TAB TABLET PO ×2 (11:03→20:34)
--- NOTE | 2024-04-25 11:12 | MHC.CM.PN ---
pt lives alone is indepedent had nom previous servies will not need servies when dcd dc plan home no servies
--- NOTE | 2024-04-25 15:46 | PC.NURSE ---
Report completed. Preparing to transfer to med/surg room 353. Report given to Santa ALCANTARA. Awaiting transport to transfer patient.
--- NOTE | 2024-04-25 15:59 | PC.NURSE ---
Patient up & out of bed using bathroom at this time.
[2024-04-25] MEDS: Atorvastatin Calcium 80 MG TABLET PO (20:33)
[2024-04-25] MEDS: Tamsulosin HCL 0.4 MG CAPSULE PO (20:33)
[2024-04-26 04:00] VITALS: BP 104/71; PULSE 77; RESP 16; TEMP 36.1; O2SAT 96
[2024-04-26] MEDS: Levothyroxine Sodium 125 MCG TABLET PO (05:54)
[2024-04-26] MEDS: Omeprazole 20 MG CAPSULE.DR PO (05:55)
[2024-04-26 07:02] LABS: Anion Gap 15 (12-20); Blood Urea Nitrogen 35 mg/dL (9-16); Calcium 9.5 mg/dL (8.4-10.2); Carbon Dioxide 24 mmol/L (22-29); Chloride 108 mmol/L (96-108); Creatinine Clr Calc Pharmacy 39.8; Estimated Glomerular Filt Rate 38; Glucose Random 195 mg/dL (60-115); Magnesium 2.2 mg/dL (1.6-2.6); Sodium 143 mmol/L (135-145)
[2024-04-26 07:08] LABS: B Type Natriuretic Peptide 2954 pg/mL (<100)
[2024-04-26 07:14] VITALS: BP 99/62; PULSE 68; RESP 16; TEMP 36.4; O2SAT 96
[2024-04-26] MEDS: Sertraline HCL 50 MG TABLET 150 MG PO (08:48)
[2024-04-26] MEDS: Furosemide 40 MG/4 ML VIAL IVPUSH (08:48)
[2024-04-26] MEDS: Apixaban 5 MG TABLET PO (08:49)
[2024-04-26] MEDS: Sacubitril/Valsartan 97/103 1 TAB TABLET PO (08:49)
[2024-04-26] MEDS: Ezetimibe 10 MG TABLET PO (08:49)
[2024-04-26] MEDS: Metoprolol Succinate ER 50 MG TAB.ER.24H PO (08:49)
[2024-04-26] MEDS: Spironolactone 25 MG TABLET 12.5 MG PO (08:49)
[2024-04-26] MEDS: 0.9 % Sodium Chloride Flush 3 ML SYRINGE IVFLUSH (08:50)
--- NOTE | 2024-04-26 10:57 | PM.CNCAR ---
History of Present Illness History of Present Illness Date of Service: 04/26/24 Requesting physician: Santiago Colon Chief complaint: dyspnea. CHF Narrative: Pleasant 73-year-old gentleman who is following with Dr. Jules for heart failure with reduced ejection fraction. He has history of previous myocardial infarction and cardiomyopathy with EF 25-30%. He has regional wall motion abnormalities consistent with ischemic cardiomyopathy. He had moderate RV dysfunction in the past. [id number] mitral regurgitation was noted before and he had mild aortic valve stenosis. He is presenting mostly for shortness of breath which progressed over the last 2 weeks. Clinically he was noted to be in congestive heart failure and was diuresed. He is currently improved and is denying significant shortness of breath. He has not ambulated yet. He is saying that his Lasix was decreased in the last few months to 20 mg daily. Spironolactone was added which was 12.5 mg daily. He is also on Entresto and Toprol-XL. 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 Congenital bilateral renal cysts Chronic renal insufficiency, stage IV (severe) BPH (benign prostatic hyperplasia) ASHD (arteriosclerotic heart disease) Metal foreign body in lower leg Myocardial infarct Surgical History Surgical History Hx of rotator cuff surgery H/O colonoscopy Social History Social History Household Members: None Housing: Condominium Do you presently have visiting nurse or other home services: No Patient Tobacco Use Status: Former Tobacco user Years Smoked: quit 40 years ago e-Cigarette/Vaping Use: Never Used Second Hand Smoke Exposure: No Advance Directives Date on File: 03/16/23 service: No Current occupational status: retired Cognitive needs: No Hearing needs: No Vision needs: No Meds Allergies Allergy/AdvReac Type Severity Reaction Status Date / Time No Known Allergies Allergy Verified 04/24/24 21:36 Active Medications: Current Medications Acetaminophen (Acetaminophen 325 Mg Tablet) 650 mg PO Q6H PRN PRN Reason: Pain, Mild (Pain Scale 1-3), fever or headache Apixaban (Apixaban 5 Mg Tablet) 5 mg PO BID [facility] Last Admin: 04/26/24 08:49 Dose: 5 mg Atorvastatin Calcium (Atorvastatin Calcium 80 Mg Tablet) 80 mg PO BEDTIME [facility] Last Admin: 04/25/24 20:33 Dose: 80 mg Calcium Carbonate (Calcium Carbonate 750 Mg Tab.Chew) 750 mg PO Q4H PRN PRN Reason: Heartburn Ezetimibe (Ezetimibe 10 Mg Tablet) 10 mg PO DAILY [facility] Last Admin: 04/26/24 08:49 Dose: 10 mg Empagliflozin (Empagliflozin 10 Mg Tablet) 10 mg PO DAILY [facility] Furosemide (Furosemide 40 Mg/4 Ml Vial) 40 mg IVPUSH DAILY [facility]; Protocol Last Admin: 04/26/24 08:48 Dose: 40 mg Levothyroxine Sodium (Levothyroxine Sodium 125 Mcg Tablet) 125 mcg PO DAILY@0600 [facility] Last Admin: 04/26/24 05:54 Dose: 125 mcg Magnesium Hydroxide (Milk Of Magnesia 30 Ml Oral.Susp) 30 ml PO DAILY PRN PRN Reason: Constipation Melatonin (Melatonin 3 Mg Tablet) 6 mg PO BEDTIME PRN PRN Reason: Insomnia Metoprolol Succinate (Metoprolol Succinate Er 50 Mg Tab.Er.24h) 50 mg PO DAILY [facility]; Protocol Last Admin: 04/26/24 08:49 Dose: 50 mg Omeprazole (Omeprazole 20 Mg Capsule.Dr) 20 mg PO DAILY@0630 [facility] Last Admin: 04/26/24 05:55 Dose: 20 mg Ondansetron HCl (Ondansetron Hcl 4 Mg/2 Ml Vial) 4 mg IVPUSH Q8H PRN PRN Reason: Nausea and Vomiting Sacubitril/Valsartan (Sacubitril/Valsartan 97/103 1 Tab Tablet) 1 tab PO BID [facility]; Protocol Last Admin: 04/26/24 08:49 Dose: 1 tab Sertraline HCl (Sertraline Hcl 50 Mg Tablet) 150 mg PO DAILY [facility] Last Admin: 04/26/24 08:48 Dose: 150 mg Sodium Chloride (0.9 % Sodium Chloride Flush 3 Ml Syringe) 3 ml IVFLUSH QSHIFT [facility] Last Admin: 04/26/24 08:50 Dose: 3 ml Spironolactone (Spironolactone 25 Mg Tablet) 12.5 mg PO DAILY [facility]; Protocol Last Admin: 04/26/24 08:49 Dose: 12.5 mg Tamsulosin HCl (Tamsulosin Hcl 0.4 Mg Capsule) 0.4 mg PO BEDTIME [facility] Last Admin: 04/25/24 20:33 Dose: 0.4 mg Home Medications ?Medication ?Instructions ?Recorded ?Confirmed ?Last Taken ?Type omeprazole 20 mg capsule,delayed 20 mg PO DAILY@0630 04/25/24 04/25/24 04/24/24 History release Physical Exam Vital Signs: Vital Signs: Last Vital Signs Temp 97.6 F 04/26/24 07:14 Pulse 68 04/26/24 07:14 Resp 16 04/26/24 07:14 BP 99/62 04/26/24 07:14 Pulse Ox 96 04/26/24 07:14 O2 Del Method Room Air 04/26/24 07:14 BMI result Body Mass Index 27.1 GENERAL APPEARANCE: in no acute distress, pleasant. NECK: no carotid bruit, mild jugular venous distention. SKIN: no suspicious lesions, warm and dry. HEART: no murmurs, regular rate and rhythm. LUNGS: clear to auscultation bilaterally. ABDOMEN: soft, nontender. EXTREMITIES: no edema. PERIPHERAL PULSES: equal. NEUROLOGIC: No gross deficits, AAO X 3 Objective Labs and Meds 04/25/24 04:49 04/26/24 05:56 Lab results: Laboratory Results - last 24 hr 04/26/24 05:56 Sodium 143 Potassium 4.0 Chloride 108 Carbon Dioxide 24 Anion Gap 15 BUN 35 H Creatinine 1.76 H Estim Creat Clear Calc 39.8 Estimated GFR 38 Random Glucose 195 H Estimat Average Glucose Cancelled Hemoglobin A1c % Cancelled Calcium 9.5 Magnesium 2.2 B-Natriuretic Peptide 2954 H Assessment and Plan (1) Acute exacerbation of chronic heart failure: Status: Acute Plan [age] gentleman with chronic systolic heart failure presenting with acute exacerbation. He has been diuresed and overall volume status appears to be good. Increase furosemide to 40 mg daily. Continue spironolactone 12.5 mg daily and consider adding Jardiance. Continue the Entresto and Toprol-XL. Ambulate the hallways to see if he has any symptoms with activity. If feeling good with activity then can be discharged home and can follow up with Dr. Jules. Thank you for allowing me to participate in the care of your patient. Please feel free to contact me if you have any questions. Procedures Date of Service Date of Service: 04/26/24
[2024-04-26] MEDS: Empagliflozin 10 MG TABLET PO (11:06)
--- NOTE | 2024-04-26 11:12 | P.DS_ITS ---
DS: Providers Provider Date of Service: 04/26/24 Date of admission: 04/25/24 01:22 Date of discharge: 04/26/24 Primary care physician: NATALIA Kruger- Consults: 04/25/24 10:27 Consult to Cardiology Routine Consulting Provider: [facility] – [place] [facility] Reason for consultation: CHF< ischemic cardiomyopathy, EF 25%. Add Jardiance? DS: Diagnosis Discharge Diagnosis (1) Acute exacerbation of chronic heart failure: Status: Acute (2) Acute on chronic heart failure with reduced ejection fraction (HFrEF, <= 40%): Status: Acute (3) Ischemic cardiomyopathy: Status: Acute DS: Summary Hospital Course Hospital Course: From the history and physical by the admitting hospitalist, Ida Hermosillo, 04/25/24: This is a 73-year-old male with pertinent history of congestive heart failure with reduced ejection fraction status post ICD, paroxysmal atrial fibrillation on Eliquis, coronary artery disease, mixed hyperlipidemia, hypothyroidism, mood disorder, BPH, CKD who presents to the emergency department for evaluation of dyspnea. Patient states his symptoms have gotten worse in the last 3 days. His dyspnea is worse when he tries to walk even a few steps. Also worse when he lays flat in bed. He did notice lower extremity leg swelling. No fever, chills, chest pain or palpitations. No sick contacts. No nausea, vomiting, abdominal pain, changes in urinary or bowel habits. In the emergency department, imaging with central vascular congestion and pulmonary edema. BNP found to be elevated. Patient was given IV Lasix 73yo M with HFrEF [25-30% + gr2 diastolic dysfunction November 2023] and ischemic cardiomyopathy presenting with 3 wk of progressive and exertional dyspnea who was admitted to the telemetry unit for CHF exacerbation. He was diuresed with IV furosemide. Cardiology was consulted. Empagliflozin was added. He was discharged on a higher dose of furosemide and empagliflozin was was discharged home with VNA services. Time Attestation Discharge Coordination Time (in mins): 40 Quality: Safe Use of Opioids Does Pt have an Active Cancer Diagnosis on the Problem List?: No Quality: Stroke Does the patient have a stroke diagnosis?: No Physical Exam Vital Signs: Vital Signs: Last Vital Signs Temp 97.6 F 04/26/24 07:14 Pulse 68 04/26/24 07:14 Resp 16 04/26/24 07:14 BP 99/62 04/26/24 07:14 Pulse Ox 96 04/26/24 07:14 O2 Del Method Room Air 04/26/24 07:14 BMI result Body Mass Index 27.1 Gen: in no acute distress HEENT: sclera anicteric, moist mucus membranes Neck: supple Lungs: clear to auscultation bilaterally Heart: regular rate and rhythm, no murmurs Abd: soft, non-tender, non-distended Ext: no edema Skin: warm/well-perfused Neuro: alert and oriented x3, no focal findings Psych: appropriate affect DS: Data Data Completed and Pending Completed studies during hospitalization [Text1]: Laboratory Results WBC 6.6 X10*3/uL (4.8-10.8) 04/25/24 04:49 RBC 3.62 X10*6/uL (4.60-5.80) L 04/25/24 04:49 Hgb 10.2 g/dl (14.0-18.0) L 04/25/24 04:49 Hct 32.4 % (42.0-52.0) L 04/25/24 04:49 MCV 89.5 fL (80.0-98.0) 04/25/24 04:49 MCH 28.2 pg (27.0-33.0) 04/25/24 04:49 MCHC 31.5 g/dl (31.0-36.0) 04/25/24 04:49 RDW 15.5 % (11.0-16.0) 04/25/24 04:49 Plt Count 121 X10*3/uL (160-400) L 04/25/24 04:49 MPV 11.3 fL (9.4-12.4) 04/25/24 04:49 Immature Gran % (Auto) 1.8 % (0.0-0.4) H 04/25/24 04:49 Neut % (Auto) 66.5 % (45-73) 04/25/24 04:49 Lymph % (Auto) 13.4 % (20-40) L 04/25/24 04:49 Creek % (Auto) 16.6 % (2-11) H 04/25/24 04:49 Eos % (Auto) 1.1 % (0-4) 04/25/24 04:49 Baso % (Auto) 0.6 % (0-2) 04/25/24 04:49 Lymph # (Auto) 0.9 X10*3/uL (1.2-4.9) L 04/25/24 04:49 Creek # (Auto) 1.1 X10*3/uL (0.1-1.2) 04/25/24 04:49 Eos # (Auto) 0.1 X10*3/uL (0.0-0.4) 04/25/24 04:49 Baso # (Auto) 0.0 X10*3/uL (0.0-0.2) 04/25/24 04:49 Abs Immat Gran (auto) 0.12 X10*3/uL (0.00-0.03) H 04/25/24 04:49 Absolute Neuts (auto) 4.4 x10*3/uL (2.0-8.3) 04/25/24 04:49 Absolute Nucleated RBC 0.000 X10*3/uL (0.0-0.012) 04/25/24 04:49 Nucleated RBC % (auto) 0.0 /100WBC (0.0-0.2) 04/25/24 04:49 Smear Tech's Comments VERIFIED 04/24/24 21:55 Sodium 143 mmol/L (135-145) 04/26/24 05:56 Potassium 4.0 mmol/L (3.3-5.1) 04/26/24 05:56 Chloride 108 mmol/L (96-108) 04/26/24 05:56 Carbon Dioxide 24 mmol/L (22-29) 04/26/24 05:56 Anion Gap 15 (12-20) 04/26/24 05:56 BUN 35 mg/dL (9-16) H 04/26/24 05:56 Creatinine 1.76 mg/dL (0.5-1.4) H 04/26/24 05:56 Estim Creat Clear Calc 39.8 04/26/24 05:56 Estimated GFR 38 04/26/24 05:56 Random Glucose 195 mg/dL (60-115) H 04/26/24 05:56 Estimat Average Glucose Cancelled 04/26/24 05:56 Hemoglobin A1c % Cancelled 04/26/24 05:56 Calcium 9.5 mg/dL (8.4-10.2) 04/26/24 05:56 Magnesium 2.2 mg/dL (1.6-2.6) 04/26/24 05:56 Total Bilirubin 0.9 mg/dL (0.0-1.0) 04/24/24 21:55 AST 40 U/L (5-37) H 04/24/24 21:55 ALT 57 U/L (0-40) H 04/24/24 21:55 Alkaline Phosphatase 103 U/L (39-117) 04/24/24 21:55 Troponin I High Sens 22.8 ng/L (<3.5-35.0) D 04/24/24 21:55 B-Natriuretic Peptide 2954 pg/mL (<100) H 04/26/24 05:56 Total Protein 6.8 g/dL (6.5-8.0) 04/24/24 21:55 Albumin 4.2 g/dL (3.5-5.0) 04/24/24 21:55 Impressions Chest X-Ray 04/24/24 22:15 IMPRESSION: Cardiomegaly and pulmonary vascular congestion. Consider developing fluid overload or congestive heart failure. Layering right lung base opacity is likely secondary to a small pleural effusion. Electronically signed by: Angel Washington MD 04/24/2024 11:41 PM EDT RP Discharge Plan Discharge Patient Disposition: Home Health Service Discharge Diagnosis: CHF exacerbation Referrals: Karthikeyan Evans FNP- [Primary Care Provider] - 1 Week Mark Jules MD [Physician] - 2 Weeks Discharge Medications: New Jardiance 10 mg Tablet 10 mg PO DAILY Qty: 30 0RF furosemide 40 mg tablet 40 mg PO QAM Qty: 30 0RF Continued sertraline 100 mg tablet 150 mg PO DAILY 90 Days Qty: 135 3RF Eliquis 5 mg tablet 5 mg PO BID 90 Days Qty: 180 3RF spironolactone 25 mg tablet 12.5 mg PO DAILY 90 Days Qty: 45 3RF Entresto 97-103 mg tablet 1 tab PO BID Qty: 180 1RF levothyroxine 125 mcg tablet 125 mcg PO DAILY@0600 Qty: 90 1RF ezetimibe 10 mg tablet 10 mg PO DAILY 90 Days Qty: 90 1RF betamethasone dipropionate 0.05 % cream 1 appl topical BID PRN (Reason: skin irritation) Qty: 45 1RF tamsulosin 0.4 mg capsule 0.4 mg PO BEDTIME 90 Days Qty: 90 3RF atorvastatin 80 mg tablet 80 mg PO BEDTIME 90 Days Qty: 90 3RF omeprazole 20 mg capsule,delayed release(DR/EC) 20 mg PO DAILY@0630 metoprolol succinate [Toprol XL] 50 mg tablet extended release 24 hr 50 mg PO DAILY Qty: 90 3RF Discontinued furosemide 20 mg tablet 20 mg PO DAILY 90 Days Qty: 90 3RF Discharge Orders: Discharge Order (Routine); Ordered 04/26/24 Ordered By: Santiago Colon Diet: Low salt diet Activity on Discharge: As tolerated Stand Alone Forms: Patient Portal Discharge page Print Language: Tongan Care Plan Goals: heart health Health Concerns: CHF exacerbation Plan of Treatment: Low-sodium diet: less than 2000 mg of sodium daily. Weigh yourself daily and call your doctor if your weight goes up by more than 3 lb/day or 5 lb/week. Increase furosemide from 20 to 40 mg daily Start empagliflozin 10 mg daily Follow up with [facility] – [place] Cardiology in 2 weeks Please follow up with your primary care doctor within 1 week. Return to the hospital if you experience recurrent or worsening symptoms. Assessment: See Discharge Summary.
--- NOTE | 2024-04-26 11:43 | P.F2F_ITS ---
Service Date Service Date: 04/26/24 Encounter Date of encounter: 04/26/24 Reasons for Services Signs and symptoms assessed: CHF Reason for detention: medication management, medication treatment and teach disease management Reason for physical therapy: home safety and mobility, therapeutic exercises, gait/transfer training, assess need for DME, ADL training and energy conservation Overseeing Care: Karthikeyan Evans Homebound: Leaving the home is medically contraindicated at this time without the asist of a device and/or another person due th the listed conditions above and below. Reason homebound: unsteady gait / fall risk and shortness of breath with minimal effort Certification: Based on the above findings, I certify that this patient is confined to the home and needs intermittent detention care, physical therapy and/or speech therapy, or continues to need occupational therapy. The patient is under my care, and I have initiated the establishment of the plan of care. The patient will be followed by a physician who will periodically review the plan of care. Time Spent With Patient Time: Total time managing care of this patient today ____ minutes.
--- NOTE | 2024-04-26 14:28 | MHC.CM.PN ---
PT DISCHARGED HOME TODAY WITH [facility]IA [facility]
== END 2024-04-26 13:18 | disposition home health service (06) ==
LOC: HO.ED 04-25 01:19 → HO.EDOVER 04-25 01:26 → HO.S3 04-25 15:35
PROVIDERS: Admitting Provider Student in an Organized Health Care Education/Training Program; Emergency Provider Internal Medicine; PCP Nurse Practitioner Family; Visit Provider Family Medicine
DX: I13.0 Hypertensive heart and chronic kidney disease with heart failure and stage 1 through stage 4 chronic kidney disease, or unspecified chronic kidney disease (principal); I50.23 Acute on chronic systolic (congestive) heart failure; E11.22 Type 2 diabetes mellitus with diabetic chronic kidney disease; I25.5 Ischemic cardiomyopathy; N18.30 Chronic kidney disease, stage 3 unspecified; R06.02 Shortness of breath; I48.0 Paroxysmal atrial fibrillation; D64.9 Anemia, unspecified; E78.2 Mixed hyperlipidemia; E03.9 Hypothyroidism, unspecified; I25.10 Atherosclerotic heart disease of native coronary artery without angina pectoris; K21.9 Gastro-esophageal reflux disease without esophagitis; Z79.01 Long term (current) use of anticoagulants; Z79.899 Other long term (current) drug therapy; Z95.810 Presence of automatic (implantable) cardiac defibrillator
CPT/HCPCS: 36415; 71046; 80048; 80053; 83735; 83880; 84484; 85025; 93005; 96374; 96376; 97161; 99221; 99285; J1940

== ENCOUNTER → 2024-04-24 21:37 | Outpatient (BNV) | payer MEDICARE, SELFPAY | PROVIDERS: Admitting Provider Student in an Organized Health Care Education/Training Program; Emergency Provider Internal Medicine; PCP Nurse Practitioner Family; Visit Provider Internal Medicine Cardiovascular Disease | DX: R94.31 Abnormal electrocardiogram [ECG] [EKG] (principal) | CPT/HCPCS: 93010 ==

== ENCOUNTER → 2024-04-25 01:22 | Outpatient (BNV) | payer MEDICARE, SELFPAY | PROVIDERS: Admitting Provider Student in an Organized Health Care Education/Training Program; Emergency Provider Internal Medicine; PCP Nurse Practitioner Family; Visit Provider Student in an Organized Health Care Education/Training Program | DX: I50.9 Heart failure, unspecified (principal); I50.23 Acute on chronic systolic (congestive) heart failure; I25.5 Ischemic cardiomyopathy | CPT/HCPCS: 99222; 99239; 99499; G0180 ==

== ENCOUNTER → 2024-04-25 01:22 | Outpatient (BNV) | payer MEDICARE, SELFPAY | PROVIDERS: Admitting Provider Student in an Organized Health Care Education/Training Program; Emergency Provider Internal Medicine; PCP Nurse Practitioner Family; Visit Provider Internal Medicine Cardiovascular Disease | DX: I50.9 Heart failure, unspecified (principal) | CPT/HCPCS: 99223 ==

== ENCOUNTER → 2024-04-27 23:59 | Outpatient (BNV) | payer MEDICARE, SELFPAY ==
--- NOTE | 2024-05-07 17:09 | MHC.OFFVIS ---
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 Chronic renal insufficiency, stage IV (severe) BPH (benign prostatic hyperplasia) ASHD (arteriosclerotic heart disease) Metal foreign body in lower leg Myocardial infarct Surgical History Hx of rotator cuff surgery H/O colonoscopy Social History Household Members: None Housing: Condominium Do you presently have visiting nurse or other home services: Yes Patient Tobacco Use Status: Former Tobacco user Years Smoked: quit 40 years ago e-Cigarette/Vaping Use: Never Used Second Hand Smoke Exposure: No Advance Directives Date on File: 03/16/23 service: No Current occupational status: retired Cognitive needs: No Hearing needs: No Vision needs: No Office Procedures Cardiac Device Check Cardiac Device Check Details: Remote ICD report generated 04/27/2024. ICD function is adequate [id number] Cardiac Interrogation, implant defibrillator w/interim Procedure code (CPT) selection complete Quality Reporting (2019) Adult ([facility] 138/08/25/68) Smoking risk assessment performed?: Yes Patient Tobacco Use Status: Former Tobacco user Assessment & Plan Assessment & Plan (1) ICD (implantable cardioverter-defibrillator) in place: Code(s): Z95.810 - Presence of automatic (implantable) cardiac defibrillator Category: Medical Plan: See above Coding Level of Care Code Procedure Only Diagnoses ICD (implantable cardioverter-defibrillator) in place Z95.810 CPT Codes Cardiac Device Check - Cardiac Device 13: [id number] Cardiac Interrogation, implant defibrillator w/interim ([id number])
== END ==
PROVIDERS: PCP Nurse Practitioner Family; Visit Provider Internal Medicine Cardiovascular Disease
DX: Z45.02 Encounter for adjustment and management of automatic implantable cardiac defibrillator (principal)
CPT/HCPCS: 93295

== ENCOUNTER 2024-05-02 04:54 | Inpatient (IN) | payer MEDICARE, SELFPAY ==
[2024-05-02] VITALS (40 sets, daily range): BP systolic 78–116; BP diastolic 38–82; PULSE 58–88; RESP 11–22; TEMP 36.4–36.6; O2SAT 92–100; BMI 27.9; BMI 26.7
--- NOTE | ~2024-05-02 | XR_ITS ---
EXAMINATION: XR CHEST CLINICAL INFORMATION: Shortness of breath. COMPARISON: 04/24/2024 TECHNIQUE: 2 views of the chest were obtained. FINDINGS: There is no gross pneumothorax. Cardiac mediastinal silhouette remains enlarged. Redemonstration of pacer leads in place. Mild pulmonary vascular congestion. Decreased small right pleural effusion. Degenerative changes in the thoracic spine. XR/XR chest 2V IMPRESSION: Mild pulmonary vascular congestion. Decreased small right pleural effusion. This study was presented today May 02, 2024 for interpretation. Stat results provided at this time as requested by referring provider. Electronically signed by: Maggie Cooper MD 05/02/2024 06:30 AM EDT
--- NOTE | 2024-05-02 05:01 | ECG_ITS ---
Test Reason : SOB Blood Pressure : / mmHG Vent. Rate : 063 BPM Atrial Rate : 063 BPM P-R Int : 182 ms QRS Dur : 122 ms QT Int : 424 ms P-R-T Axes : 069 075 053 degrees QTc Int : 433 ms Normal sinus rhythm A paced rhythm Nonspecific T wave abnormality Abnormal ECG When compared with ECG of 24-APR-2024 21:41, No significant changes seen Referred By: Generic ED Physician Electronically Signed By:MALIHA LUNA
[2024-05-02 05:27] LABS: MANUAL DIFF FLAG NO
--- NOTE | 2024-05-02 05:30 | PC.NURSE ---
Pt aox3, presents via EMS from home reporting sob on exertion. Pt is currently hypotensive and pale, BP 80/54 HR 60's. Recently d/c due to CHF exacerbation. Reports Lasix was increased from 20mg to 40mg. Denies chest pain, N/V. 20G IV line L AC. made aware. Per MD hold fluids at this time. Pending new orders.
[2024-05-02 05:37] LABS: Basophils Percent Auto 0.6 % (0-2); Eosinophils Absolute Auto 0.1 X10*3/uL (0.0-0.4); Eosinophils Percent Auto 0.9 % (0-4); Hematocrit 34.7 % (42.0-52.0); Hemoglobin 10.7 g/dl (14.0-18.0); Imm Gran Pct Auto 1.6 % (0.0-0.4); Lymphocytes Absolute Auto 0.9 X10*3/uL (1.2-4.9); Mean Corpuscular HGB Conc 30.8 g/dl (31.0-36.0); Mean Corpuscular Hemoglobin 28.1 pg (27.0-33.0); Mean Corpuscular Volume 91.1 fL (80.0-98.0); Mean Platelet Volume 11.4 fL (9.4-12.4); Monocytes Percent Auto 15.1 % (2-11); Neutrophils Absolute Auto 4.4 x10*3/uL (2.0-8.3); Neutrophils Percent Auto 67.8 % (45-73); Platelet Count 138 X10*3/uL (160-400); Red Blood Count 3.81 X10*6/uL (4.60-5.80); Red Cell Distribution Width 15.3 % (11.0-16.0); White Blood Count 6.4 X10*3/uL (4.8-10.8)
[2024-05-02 05:43] LABS: COVID-19 Test Negative (Negative); IDNOW Serial# 08D9AD1C; IDNOW Serial# 152EDE1D; Influenza A Negative (Negative); Influenza B2 Negative (Negative)
--- NOTE | 2024-05-02 05:45 | ED.SOB ---
HPI - SOB/Dyspnea General Chief Complaint: Dyspnea Stated Complaint: SOB Time Seen by Provider: 05/02/24 05:20 Source: patient and EMS Mode of arrival: EMS Limitations: no limitations History of Present Illness ED Provider: Dr. Tasia Enamorado HPI Narrative: Patient comes to the emergency room via ambulance from home. Patient states that he was discharged from the hospital approximately a week ago. Patient states that over last week he has been getting more short of breath. Patient states that he had possible fever but not sure, complaining of feeling short of breath with minimal exertion, complaining of generalized malaise. Patient states that the shortness of breath is much worse when he lays flat. Patient has noticed that his legs are a bit more swollen that when he was discharged from the hospital. Patient has been taking his medications as prescribed. Patient increased his Lasix. Patient states that any time that he tries to stand up and walk, he feels very lightheaded almost like he is going to pass out. Denies chest pain. Related Data Home Medications ?Medication ?Instructions ?Recorded ?Confirmed omeprazole 20 mg capsule,delayed 20 mg PO DAILY@0630 04/25/24 04/30/24 release Previous Rx's ?Medication ?Instructions ?Recorded sertraline 100 mg tablet 150 mg (1.5 x 100 mg) PO DAILY 90 08/15/23 days #135 tabs apixaban 5 mg tablet (Eliquis) 5 mg PO BID 90 days #180 tabs 10/20/23 spironolactone 25 mg tablet 12.5 mg (1/2 x 25 mg) PO DAILY 90 10/25/23 days #45 tabs metoprolol succinate 50 mg 50 mg PO DAILY #90 tabs 11/15/23 tablet,extended release 24 hr (Toprol XL) sacubitril 97 mg-valsartan 103 mg 1 tab PO BID #180 tabs 12/07/23 tablet (Entresto) levothyroxine 125 mcg tablet 125 mcg PO DAILY@0600 #90 tabs 12/11/23 ezetimibe 10 mg tablet 10 mg PO DAILY 90 days #90 tabs 12/25/23 betamethasone dipropionate 0.05 % 1 appl topical BID PRN skin 03/07/24 topical cream irritation #45 grams atorvastatin 80 mg tablet 80 mg PO BEDTIME 90 days #90 tabs 03/12/24 tamsulosin 0.4 mg capsule 0.4 mg PO BEDTIME 90 days #90 caps 03/12/24 empagliflozin 10 mg tablet 10 mg PO DAILY #30 tabs 04/26/24 (Jardiance) furosemide 40 mg tablet 40 mg PO QAM #30 tabs 04/26/24 Allergies Allergy/AdvReac Type Severity Reaction Status Date / Time No Known Allergies Allergy Verified 05/02/24 05:09 Review of Systems Review of Systems: Constitutional : No Weight loss, complaining of subjective fever, fatigue ENT/Mouth : No Hearing loss, No Ear Pain, No Nasal Congestion, No Sinus Pain, No Hoarseness, No sore throat, No Rhinorrhea, No Swallowing Difficulty Eyes: No Eye Pain, No Swelling, No Redness, No Foreign Body, No Discharge, No Vision Changes Cardiovascular : No Chest Pain, complaining of orthopnea and shortness of breath, worsening pedal edema Respiratory : No Cough, No Sputum, No Wheezing, No Smoke Exposure, No Dyspnea Gastrointestinal : No Nausea, No Vomiting, No Diarrhea, No Constipation, No abdominal Pain, No Hematochezia, No Melena Genitourinary : no irregular bleeding, No Dysuria, No Urinary Frequency, No Hematuria, No Urinary Incontinence, No Urgency, No Flank Pain, No Urinary Flow Changes, No Hesitancy Musculoskeletal : No joint pain, No Myalgias, No Joint Swelling Skin : No Skin Lesions, No rash Neuro : No Weakness, No Numbness, No Paresthesias, No Loss of Consciousness, No Dizziness, No Headache Psych : No Anxiety/Panic, No Depression, No SI/HI/AH/VH, No Social Issues, Heme/Lymph: No Bruising, No Bleeding,No Lymphadenopathy Endocrine : No Polyuria, No Polydipsia, No Temperature Intolerance [facility] Past Medical History Medical History HTN (hypertension) Chronic anemia Elevated cholesterol CAD (coronary artery disease) Paroxysmal atrial fibrillation Thrombocytopenia Systolic CHF Fatty liver Macular degeneration of right eye ICD (implantable cardioverter-defibrillator) in place Hypothyroid GERD (gastroesophageal reflux disease) Depression, major, 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 Congenital bilateral renal cysts Chronic renal insufficiency, stage IV (severe) BPH (benign prostatic hyperplasia) ASHD (arteriosclerotic heart disease) Metal foreign body in lower leg Myocardial infarct Surgical History Hx of rotator cuff surgery H/O colonoscopy Social History Social History Household Members: None Housing: Condominium Do you presently have visiting nurse or other home services: No Patient Tobacco Use Status: Former Tobacco user Years Smoked: quit 40 years ago Smoked in Last 30 Days: No e-Cigarette/Vaping Use: Never Used Second Hand Smoke Exposure: No Use of substances other than those prescribed or required for medical reasons: No Advance Directives: Yes Advance Directives on File: Yes Advance Directives Date on File: 03/16/23 Do you have a plan to hurt others: No Plan service: No Current occupational status: retired Cognitive needs: No Hearing needs: No Vision needs: No Physical Exam Vital Signs: Vital Signs: Last Vital Signs Temp 97.8 F 05/02/24 05:02 Pulse 75 05/02/24 07:17 Resp 11 L 05/02/24 07:17 BP 92/55 L 05/02/24 07:17 Pulse Ox 100 05/02/24 06:53 O2 Del Method Room Air 05/02/24 06:53 BMI result Body Mass Index 27.9 Const: Other: Appearance: Alert. Oriented X3. No acute distress. Eyes: Pupils equal, round and reactive to light. ENT: Pharynx normal. Neck: Normal inspection. Neck supple. No lymph nodes noted. No crepitus CVS: Normal heart rate and rhythm. Pulses normal. Normal S1 and S2 Respiratory: No respiratory distress. Breath sounds normal. No Wheezing. No rales Abdomen: Soft and nontender. No rigidity. No distention. Skin: Skin warm and dry. Patient's seems a bit pale. Normal skin turgor. Extremities: No lower extremity edema. No Lacerations. No Rash Neuro: Oriented X 3. No motor deficit. No sensory deficit. Moving all extremities. No slurred speech. CN 2 through 12 grossly intact Psych: calm, cooperative, normal affect Course Course Course Narrative: Patient was recently discharged from the hospital for CHF exacerbation. Patient has CHF, ejection fraction 25-30%. Patient states that he has been taking Eliquis and has been compliant with his medications. -it was noted on arrival the patient's blood pressure is in the low 80s/high 70s systolic. Patient was given a bolus of fluids 200 mL. However, blood pressure is not improving, patient will need Levophed. -empirically, patient being treated with ceftriaxone azithromycin, patient subjective low-grade fever at home. Patient was recently hospitalized. On x-ray, there is questionably an infiltrate. Patient does not seem to have a significant amount of pulmonary edema -at this time, Lasix would not be beneficial either, patient is hypotensive. Medications Administered Generic Name Dose Route Start Last Admin Trade Name Freq PRN Reason Stop Dose Admin Norepinephrine Bitartrate 8 mg in 250 mls @ 0 mls/hr 05/02/24 05:45 05/02/24 05:54 Levophed IVCONT 0.05 mcg/kg/min .Q0M YULIYA 8.51 mls/hr Administration Protocol Per Protocol Azithromycin 500 mg/ Sodium 250 mls @ 125 mls/hr 05/02/24 05:44 05/02/24 06:49 Chloride IV 05/02/24 07:43 125 mls/hr ONCE ONE Administration Calcium Gluconate 2 gm in 100 mls @ 50 mls/hr 05/02/24 05:50 05/02/24 06:35 Calcium Gluconate IV 05/02/24 07:49 50 mls/hr ONCE ONE Administration Discontinued Medications Generic Name Dose Route Start Last Admin Trade Name Freq PRN Reason Stop Dose Admin Albuterol Sulfate 10 mg 05/02/24 05:50 05/02/24 06:09 Albuterol Sulfate (0.083%) 2.5 Mg/3 Ml Vial.Neb INHALE 05/02/24 05:51 10 mg ONCE ONE Administration Ceftriaxone Sodium 1 gm 05/02/24 05:44 05/02/24 06:21 Ceftriaxone Sodium 1 Gm Vial IVPUSH 05/02/24 05:45 1 gm ONCE ONE Administration Sodium Chloride 200 mls @ 999 mls/hr 05/02/24 05:44 05/02/24 06:13 Ns IVCONT 05/02/24 05:56 Infused .Q13M ONE Infusion Sodium Bicarbonate 1 meq 05/02/24 05:50 05/02/24 06:13 Sodium Bicarbonate 8.4% 50 Meq/50 Ml Vial SUBCUT 05/02/24 05:51 1 meq ONCE ONE Administration Sodium Zirconium Cyclosilicate 10 gm 05/02/24 05:50 05/02/24 06:21 Sodium Zirconium Cyclosilicate 10 Gm Powd.Pack PO 05/02/24 05:51 10 gm ONCE ONE Administration Medical Decision Making Medical Decision Making [facility] Narrative: -my interpretation of EKG: Sinus rhythm, heart rate 63, no ST segment depression or elevation, no T-wave inversion, QTC 433, no peaked T-waves -patient's potassium 6.0. Patient receiving calcium gluconate, albuterol, Lokelma, bicarb push -Levophed has been started to have patient's blood pressure. Since patient has significant CHF, at this time, we will not give a large amount of fluids. -patient's repeat labs pending. Patient received the above-mentioned treatment for hyperkalemia. -patient's blood pressure 108 systolic -patient continues on Levophed drip. -I discussed the patient with Dr. Haynes, likely to be admitted to the ICU. -sign-out given to my colleague Dr. Marr Differential Diagnosis Differential Diagnoses: The differential diagnosis associated with the presentation includes (Pneumonia, CHF, medication side-effect) Admission/Observation Consideration of admission/observation: Escalation of care including admission/observation considered Consult Healthcare Provider Management of the patient was discussed with: Hospitalist Lab Data [facility] Lab Attestation statement: I reviewed the patient's lab results. 05/02/24 05:18 05/02/24 06:09 Labs: Lab Results 05/02/24 05/02/24 05/02/24 Range/Units 05:18 05:19 06:09 WBC 6.4 (4.8-10.8) X10*3/uL RBC 3.81 L (4.60-5.80) X10*6/uL Hgb 10.7 L (14.0-18.0) g/dl Hct 34.7 L (42.0-52.0) % MCV 91.1 (80.0-98.0) fL MCH 28.1 (27.0-33.0) pg MCHC 30.8 L (31.0-36.0) g/dl RDW 15.3 (11.0-16.0) % Plt Count 138 L (160-400) X10*3/uL MPV 11.4 (9.4-12.4) fL Immature Gran % (Auto) 1.6 H (0.0-0.4) % Neut % (Auto) 67.8 (45-73) % Lymph % (Auto) 14.0 L (20-40) % [place] % (Auto) 15.1 H (2-11) % Eos % (Auto) 0.9 (0-4) % Baso % (Auto) 0.6 (0-2) % Lymph # (Auto) 0.9 L (1.2-4.9) X10*3/uL [place] # (Auto) 1.0 (0.1-1.2) X10*3/uL Eos # (Auto) 0.1 (0.0-0.4) X10*3/uL Baso # (Auto) 0.0 (0.0-0.2) X10*3/uL Abs Immat Gran (auto) 0.10 H (0.00-0.03) X10*3/uL Absolute Neuts (auto) 4.4 (2.0-8.3) x10*3/uL Absolute Nucleated RBC 0.000 (0.0-0.012) X10*3/uL Nucleated RBC % (auto) 0.0 (0.0-0.2) /100WBC Sodium 141 (135-145) mmol/L Potassium 6.0 H* D 6.0 H* (3.3-5.1) mmol/L Chloride 107 (96-108) mmol/L Carbon Dioxide 21 L (22-29) mmol/L Anion Gap 19 (12-20) BUN 39 H (9-16) mg/dL Creatinine 1.94 H (0.5-1.4) mg/dL Estim Creat Clear Calc 37.9 Estimated GFR 34 Random Glucose 159 H (60-115) mg/dL Lactic Acid 2.0 (0.5-2.0) mmol/L Calcium 9.6 (8.4-10.2) mg/dL Total Bilirubin 0.9 (0.0-1.0) mg/dL AST 39 H (5-37) U/L ALT 64 H (0-40) U/L Alkaline Phosphatase 109 (39-117) U/L Troponin I High Sens 20.6 (<3.5-35.0) ng/L B-Natriuretic Peptide 2490 H (<100) pg/mL Total Protein 7.3 (6.5-8.0) g/dL Albumin 4.2 (3.5-5.0) g/dL COVID-19 (KARAN) Negative (Negative) COVID-19 Clin Com See Note Influenza Type A (DEANNE) Negative (Negative) Influenza Type B (DEANNE) Negative (Negative) Influenza A & B Note See Note Independent Interpretation I performed an independent interpretation of an: Plain X-Ray Radiology Impression Discussion of test interpretation with radiology: I have reviewed the radiologist's reading. Radiologist Impression: FINDINGS: There is no gross pneumothorax. Cardiac mediastinal silhouette remains enlarged. Redemonstration of pacer leads in place. Mild pulmonary vascular congestion. Decreased small right pleural effusion. Degenerative changes in the thoracic spine. XR/XR chest 2V IMPRESSION: Mild pulmonary vascular congestion. Decreased small right pleural effusion. This study was presented today May 02, 2024 for interpretation. Stat results provided at this time as requested by referring provider.FINDINGS: There is no gross pneumothorax. Cardiac mediastinal silhouette remains enlarged. Redemonstration of pacer leads in place. Mild pulmonary vascular congestion. Decreased small right pleural effusion. Degenerative changes in the thoracic spine. XR/XR chest 2V IMPRESSION: Mild pulmonary vascular congestion. Decreased small right pleural effusion. This study was presented today May 02, 2024 for interpretation. Stat results provided at this time as requested by referring provider. Critical Care Time Critical Care Time Critical Care Time: Yes Total Critical Care Time: 90 Attestation: I have personally provided critical care time. Time includes review of lab data, radiology results, discussion with consultants, and monitoring for potential decompensation. Intervention performed as documented. Discharge Plan Discharge Clinical Impression: CHF (congestive heart failure), Acute hypotension, Acute hyperkalemia Patient Disposition: Admitted As Inpatient Prescriptions: No Action sertraline 100 mg tablet 150 mg PO DAILY 90 Days Qty: 135 3RF Eliquis 5 mg tablet 5 mg PO BID 90 Days Qty: 180 3RF spironolactone 25 mg tablet 12.5 mg PO DAILY 90 Days Qty: 45 3RF Entresto 97-103 mg tablet 1 tab PO BID Qty: 180 1RF levothyroxine 125 mcg tablet 125 mcg PO DAILY@0600 Qty: 90 1RF ezetimibe 10 mg tablet 10 mg PO DAILY 90 Days Qty: 90 1RF betamethasone dipropionate 0.05 % cream 1 appl topical BID PRN (Reason: skin irritation) Qty: 45 1RF tamsulosin 0.4 mg capsule 0.4 mg PO BEDTIME 90 Days Qty: 90 3RF atorvastatin 80 mg tablet 80 mg PO BEDTIME 90 Days Qty: 90 3RF omeprazole 20 mg capsule,delayed release(DR/EC) 20 mg PO DAILY@0630 Jardiance 10 mg Tablet 10 mg PO DAILY Qty: 30 0RF furosemide 40 mg tablet 40 mg PO QAM Qty: 30 0RF metoprolol succinate [Toprol XL] 50 mg tablet extended release 24 hr 50 mg PO DAILY Qty: 90 3RF Print Language: Maori
[2024-05-02 05:47] LABS: Alanine Aminotransferase 64 U/L (0-40); Albumin Level 4.2 g/dL (3.5-5.0); Alkaline Phosphatase 109 U/L (39-117); Anion Gap 19 (12-20); Aspartate Amino Transferase 39 U/L (5-37); Bilirubin Total 0.9 mg/dL (0.0-1.0); Blood Urea Nitrogen 39 mg/dL (9-16); Calcium 9.6 mg/dL (8.4-10.2); Carbon Dioxide 21 mmol/L (22-29); Chloride 107 mmol/L (96-108); Creatinine Clr Calc Pharmacy 37.9; Estimated Glomerular Filt Rate 34; Glucose Random 159 mg/dL (60-115); Sodium 141 mmol/L (135-145); Total Protein 7.3 g/dL (6.5-8.0)
[2024-05-02 05:47] LABS: B Type Natriuretic Peptide 2490 pg/mL (<100)
[2024-05-02] MEDS: Norepinephrine Bitartrate/D5W 8 MG/250 ML PLAST..BAG 8.51 MG IVCONT (05:54)
[2024-05-02] MEDS: Albuterol Sulfate (0.083%) 2.5 MG/3 ML VIAL.NEB 10 MG INHALE (06:09)
[2024-05-02] MEDS: Sodium Bicarbonate 8.4% 50 MEQ/50 ML VIAL SUBCUT (06:13)
[2024-05-02] MEDS: Sodium Zirconium Cyclosilicate 10 GM POWD.PACK PO (06:21)
[2024-05-02] MEDS: cefTRIAXone sodium 1 GM VIAL IVPUSH (06:21)
[2024-05-02] MEDS: Calcium Gluconate/NaCl,Iso-Osm 2 GM/100 ML PLAST..BAG IV (06:35)
[2024-05-02 06:38] LABS: Troponin-I High Sensitivity 20.6 ng/L (<3.5-35.0)
[2024-05-02] MEDS: Azithromycin 500 MG in 0.9 % Sodium Chloride 250 ML 125 MG IV (06:49)
--- NOTE | 2024-05-02 07:42 | PC.NURSE ---
Care of Pt assumed at change of shift. Pt A&Ox3, resting comfortably at this time, denies any pain Breaths and speech are slow, even and unlabored. Levophed drip at 0.05 running. MAP of 77 at this time. Pt is awaiting ICU bed.
--- NOTE | 2024-05-02 08:30 | PC.NURSE ---
Pt assisted to commode per request for need for BM with good result.
--- NOTE | 2024-05-02 08:56 | PHA.MEDREC ---
Addendum entered by Kathy Piper RPh 05/02/24 09:20: Reviewed by [facility] Original Note: Pharmacy Consult ? Medication Reconciliation Pharmacy has completed the medication reconciliation. Confirmed medications with patient and recent discharge packet from 04/26. Patient confirmed he is now taking Furosemide 40mg once daily as changed in the packet and states he is doubling the remainder of his Furosemide 20mg tabs until he runs out and gets the 40mg tabs. He also confirmed the Jardiance 10mg tab once daily but states when he was Discharged 04/26 the hospital sent the script to the wrong pharmacy (he confirmed he is going to [facility] mail order) and has been trying to figure out how to get it mail order and has not been able to take that. He states he took his medication yesterday.
[2024-05-02 09:05] LABS: Anion Gap 21 (12-20); Blood Urea Nitrogen 40 mg/dL (9-16); Calcium 9.5 mg/dL (8.4-10.2); Carbon Dioxide 17 mmol/L (22-29); Chloride 108 mmol/L (96-108); Creatinine Clr Calc Pharmacy 37.7; Estimated Glomerular Filt Rate 34; Glucose Random 187 mg/dL (60-115); Potassium 4.9 mmol/L (3.3-5.1); Sodium 141 mmol/L (135-145)
--- NOTE | 2024-05-02 09:08 | PC.NURSE ---
Commercial Loan Analyst to bedside for eval. Verbal order received to d/c Levophed at 0850 given MAP of 90. Current BP is 94/55 with MAP of 68 and HR of 74. Awaiting orders from Commercial Loan Analyst.
--- NOTE | 2024-05-02 09:16 | PC.NURSE ---
Dr. Haynes places orders for Albumin 200ml following report of decrease in BP once Levophed was d/c'd. This RN approached by Dr. Marr regarding plan of care and gives verbal order to hold albumin until further discussion with Dr. Haynes. Awaiting new orders.
--- NOTE | 2024-05-02 09:27 | PM.CCPN ---
Subjective Subjective Date of Service: 05/02/24 Critical Care Time (minutes): 40 Physical Exam Vital Signs: Vital Signs: Last Vital Signs Temp 97.8 F 05/02/24 05:02 Pulse 72 05/02/24 08:59 Resp 13 05/02/24 08:59 BP 94/55 L 05/02/24 08:59 Pulse Ox 98 05/02/24 07:33 O2 Del Method Room Air 05/02/24 07:33 BMI result Body Mass Index 27.9 Objective Data Labs 05/02/24 05:18 05/02/24 08:42 Labs: Laboratory Results - last 24 hr 05/02/24 05/02/24 05/02/24 05:18 05:19 06:09 WBC 6.4 RBC 3.81 L Hgb 10.7 L Hct 34.7 L MCV 91.1 MCH 28.1 MCHC 30.8 L RDW 15.3 Plt Count 138 L MPV 11.4 Immature Gran % (Auto) 1.6 H Neut % (Auto) 67.8 Lymph % (Auto) 14.0 L [place] % (Auto) 15.1 H Eos % (Auto) 0.9 Baso % (Auto) 0.6 Lymph # (Auto) 0.9 L [place] # (Auto) 1.0 Eos # (Auto) 0.1 Baso # (Auto) 0.0 Abs Immat Gran (auto) 0.10 H Absolute Neuts (auto) 4.4 Absolute Nucleated RBC 0.000 Nucleated RBC % (auto) 0.0 Sodium 141 Potassium 6.0 H* D 6.0 H* Chloride 107 Carbon Dioxide 21 L Anion Gap 19 BUN 39 H Creatinine 1.94 H Estim Creat Clear Calc 37.9 Estimated GFR 34 Random Glucose 159 H Lactic Acid 2.0 Calcium 9.6 Total Bilirubin 0.9 AST 39 H ALT 64 H Alkaline Phosphatase 109 Troponin I High Sens 20.6 B-Natriuretic Peptide 2490 H Total Protein 7.3 Albumin 4.2 COVID-19 (KARAN) Negative COVID-19 Clin Com See Note Influenza Type A (DEANNE) Negative Influenza Type B (DEANNE) Negative Influenza A & B Note See Note 05/02/24 08:42 WBC RBC Hgb Hct MCV MCH MCHC RDW Plt Count MPV Immature Gran % (Auto) Neut % (Auto) Lymph % (Auto) [place] % (Auto) Eos % (Auto) Baso % (Auto) Lymph # (Auto) [place] # (Auto) Eos # (Auto) Baso # (Auto) Abs Immat Gran (auto) Absolute Neuts (auto) Absolute Nucleated RBC Nucleated RBC % (auto) Sodium 141 Potassium 4.9 Chloride 108 Carbon Dioxide 17 L Anion Gap 21 H BUN 40 H Creatinine 1.95 H Estim Creat Clear Calc 37.7 Estimated GFR 34 Random Glucose 187 H Lactic Acid Calcium 9.5 Total Bilirubin AST ALT Alkaline Phosphatase Troponin I High Sens B-Natriuretic Peptide Total Protein Albumin COVID-19 (KARAN) COVID-19 Clin Com Influenza Type A (DEANNE) Influenza Type B (DEANNE) Influenza A & B Note
[2024-05-02] MEDS: Albumin Human 25 % 100 ML 133.33 ML IV ×2 (09:37→10:33)
--- NOTE | 2024-05-02 10:12 | PC.NURSE ---
BP 89/53, MAP 68, HR 68. VS reported to Dr. Haynes: No new ordered received and advised will wait for second bag of Albumin to be administered. Pt is A&Ox3 Breaths and speech are clear, concise and unlabored. Skin is warm and dry. NAD noted at this time and Pt offers no complaints.
--- NOTE | 2024-05-02 11:19 | PC.NURSE ---
Second bag of Albumin administered. BP's continue to be soft--see clinical values. Dr. Haynes and Dr. Marr at bedside for further eval. Plan is to transport Pt to ICU for further care. Pt and family at bedside aware of plan.
--- NOTE | 2024-05-02 11:42 | PM.CCHP ---
History of Present Illness Date of Service: 05/02/24 Chief Complaint: Shortness of breath for 2 seconds 73-year-old gentleman with past medical history of ischemic cardiomyopathy with last TTE showing EF 25-30% and grade 2 diastolic dysfunction, history of CAD, history of paroxysmal atrial fibrillation on Eliquis at home, hyperlipidemia, chronic kidney disease, mood disorder presents to the hospital because he becomes short of breath upon certain posture which last for about 2-3 seconds and then goes away. Because of this patient has taken more doses of diuretics but his shortness of breath is not getting better so he is here. His shortness of breath is positional, mostly on bending forwards, affecting his daily life, not disturbing his sleep. Denies any fever, denies cough, denies diarrhea or any other symptoms Patient likes to talk a lot and often deviates from the questions asked, it is very hard to get appropriate and non- sarcastic answers from him Review of Systems Constitutional: Constitutional: Denies anorexia, Denies body ache(s) and Denies chills Eyes: Eyes: Denies blurry vision and Denies exophthalmos ENT: Denies Normal hearing present and Denies bleeding gums Cardiovascular: Cardiovascular: Denies Abdominal Cramping after Meds, Denies Abdominal Distension and Denies acrocyanosis Respiratory: Respiratory: Denies change in phlegm color, Denies chest congestion and Denies cough Gastrointestinal: Gastrointestinal: Denies abdominal pain and Denies melena Genitourinary: Genitourinary: Denies change in libido and Denies hematuria Musculoskeletal: Musculoskeletal: Denies back pain and Denies myalgias Neurologic: Denies Normal hearing present, Denies Neuro-related abnormal movements and Denies behavioral changes Psychiatric: Psychiatric: Denies abnormal sleep pattern, Denies behavioral changes and Denies change in libido Endocrine: Endocrine: Denies change in libido and Denies cold intolerance Hematologic/Lymphatic: Hematologic/Lymphatic: Denies easy bleeding and Denies easy bruising PMFSH Past Medical History Medical History HTN (hypertension) Chronic anemia Elevated cholesterol CAD (coronary artery disease) Paroxysmal atrial fibrillation Thrombocytopenia Systolic CHF Fatty liver Macular degeneration of right eye ICD (implantable cardioverter-defibrillator) in place Hypothyroid GERD (gastroesophageal reflux disease) Depression, major, 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 Congenital bilateral renal cysts Chronic renal insufficiency, stage IV (severe) BPH (benign prostatic hyperplasia) ASHD (arteriosclerotic heart disease) Metal foreign body in lower leg Myocardial infarct Surgical History Surgical History Hx of rotator cuff surgery H/O colonoscopy Social History Social History Household Members: None Housing: Condominium Do you presently have visiting nurse or other home services: No Patient Tobacco Use Status: Former Tobacco user Years Smoked: quit 40 years ago Smoked in Last 30 Days: No e-Cigarette/Vaping Use: Never Used Second Hand Smoke Exposure: No Use of substances other than those prescribed or required for medical reasons: No Advance Directives: Yes Advance Directives on File: Yes Advance Directives Date on File: 03/16/23 Do you have a plan to hurt others: No Plan service: No Current occupational status: retired Cognitive needs: No Hearing needs: No Vision needs: No Meds Allergies Allergy/AdvReac Type Severity Reaction Status Date / Time No Known Allergies Allergy Verified 05/02/24 05:09 Active Medications: Current Medications Apixaban (Apixaban 5 Mg Tablet) 5 mg PO BID [facility] Atorvastatin Calcium (Atorvastatin Calcium 80 Mg Tablet) 80 mg PO BEDTIME YULIYA Ezetimibe (Ezetimibe 10 Mg Tablet) 10 mg PO DAILY [facility] Norepinephrine Bitartrate (Levophed) 8 mg in 250 mls @ 0 mls/hr IVCONT .Q0M [facility]; Protocol Last Titration: 05/02/24 08:50 Dose: Infused Levothyroxine Sodium (Levothyroxine Sodium 125 Mcg Tablet) 125 mcg PO DAILY@0600 [facility] Omeprazole (Omeprazole 20 Mg Capsule.Dr) 20 mg PO DAILY@0630 [facility] Sertraline HCl (Sertraline Hcl 50 Mg Tablet) 150 mg PO DAILY [facility] Triamcinolone Acetonide (Triamcinolone Acet 0.1 % Cream 15 Gm Tube) 1 appl TOPICAL BID PRN PRN Reason: skin irritation Home Medications ?Medication ?Instructions ?Recorded ?Confirmed ?Last Taken ?Type omeprazole 20 mg capsule,delayed 20 mg PO DAILY@0630 04/25/24 05/02/24 05/01/24 History release furosemide 40 mg tablet 40 mg PO DAILY 05/02/24 05/02/24 05/01/24 History Physical Exam Vital Signs: Vital Signs: Last Vital Signs Temp 97.8 F 05/02/24 05:02 Pulse 65 05/02/24 11:29 Resp 15 05/02/24 11:29 BP 94/52 L 05/02/24 11:29 Pulse Ox 98 05/02/24 07:33 O2 Del Method Room Air 05/02/24 07:33 BMI result Body Mass Index 27.9 General: Not in any acute distress, normal-appearing Nutritional Appearance: well nourished and overweight Eyes: appearance normal, both eyes and all related structures; Alignment and Position: alignment normal and position normal Neck: No lymphadenopathy, no thyromegaly Resp: bilateral air entry equal, occasional added sounds present Cardio: Regular rate, regular rhythm; Heart sounds: S1 normal heart sound present and S2 normal heart sound present GI: soft, nontender, no guarding, no hepatosplenomegaly : bladder normal to inspection, bladder normal to palpation, no renal angle tenderness Skin: no rashes or lesions noted and elasticity normal Neuro: oriented to person, oriented to place, oriented to time and moves all extremities Neuro: Cranial nerves: No Normal hearing present Results Labs 05/02/24 05:18 05/02/24 08:42 Labs: Laboratory Results - last 24 hr 05/02/24 05/02/24 05/02/24 05:18 05:19 06:09 MCV 91.1 MCH 28.1 MCHC 30.8 L RDW 15.3 Plt Count 138 L MPV 11.4 Immature Gran % (Auto) 1.6 H Neut % (Auto) 67.8 Lymph % (Auto) 14.0 L [place] % (Auto) 15.1 H Eos % (Auto) 0.9 Baso % (Auto) 0.6 Lymph # (Auto) 0.9 L [place] # (Auto) 1.0 Eos # (Auto) 0.1 Baso # (Auto) 0.0 Abs Immat Gran (auto) 0.10 H Absolute Neuts (auto) 4.4 Absolute Nucleated RBC 0.000 Nucleated RBC % (auto) 0.0 Anion Gap 19 Estim Creat Clear Calc 37.9 Estimated GFR 34 Random Glucose 159 H Lactic Acid 2.0 Calcium 9.6 Total Bilirubin 0.9 AST 39 H ALT 64 H Alkaline Phosphatase 109 Troponin I High Sens 20.6 B-Natriuretic Peptide 2490 H Total Protein 7.3 Albumin 4.2 COVID-19 (KARAN) Negative COVID-19 Clin Com See Note Influenza Type A (DEANNE) Negative Influenza Type B (DEANNE) Negative Influenza A & B Note See Note 05/02/24 08:42 MCV MCH MCHC RDW Plt Count MPV Immature Gran % (Auto) Neut % (Auto) Lymph % (Auto) [place] % (Auto) Eos % (Auto) Baso % (Auto) Lymph # (Auto) [place] # (Auto) Eos # (Auto) Baso # (Auto) Abs Immat Gran (auto) Absolute Neuts (auto) Absolute Nucleated RBC Nucleated RBC % (auto) Anion Gap 21 H Estim Creat Clear Calc 37.7 Estimated GFR 34 Random Glucose 187 H Lactic Acid Calcium 9.5 Total Bilirubin AST ALT Alkaline Phosphatase Troponin I High Sens B-Natriuretic Peptide Total Protein Albumin COVID-19 (KARAN) COVID-19 Clin Com Influenza Type A (DEANNE) Influenza Type B (DEANNE) Influenza A & B Note Imaging Radiologist's Impressions: Impressions Chest X-Ray 05/02/24 05:19 IMPRESSION: Mild pulmonary vascular congestion. Decreased small right pleural effusion. This study was presented today May 02, 2024 for interpretation. Stat results provided at this time as requested by referring provider. Electronically signed by: Maggie Cooper MD 05/02/2024 06:30 AM EDT Assessment and Plan (1) HTN (hypertension): Qualifiers: Hypertension type: primary hypertension Qualified Code(s): I10 - Essential (primary) hypertension Status: Acute (2) Systolic CHF: Status: Acute (3) CHF (congestive heart failure): Status: Acute (4) Acute exacerbation of chronic heart failure: Status: Acute (5) Acute CHF: Status: Acute (6) Acute on chronic heart failure with reduced ejection fraction (HFrEF, <= 40%): Status: Acute Plan Cardiogenic shock: Shock is possibly secondary to aggressive and over-diuresis. Vasopressors has been tapered off at 9AM, blood pressures are borderline. He received 200 cc of albumin bolus at 01:33 per hour,, another 200 mL of fluids this morning. We will give him 500 cc of LR while closely monitoring his cardiorespiratory status Ischemic cardiomyopathy: His last TTE showed EF of 20-25% with grade 2 diastolic dysfunction in 11/21/2023 Given his positional dyspnea we will repeat another echo he will look for any valvular abnormalities We will restart his home aspirin, ezetimibe Hold off on Entresto, metoprolol given his hypotension Acute on chronic kidney disease: Patient has underlying CKD, acute worsening might be secondary to over diuresis We will closely monitor his renal function Acute hyperkalemia: Possibly secondary to poor tubular flow Medically managed, repeat potassium is improved Paroxysmal atrial fibrillation: Continue apixaban, we will hold metoprolol due to hypotension Prophylaxis: Apixaban and omeprazole Critical care time spent is about 35 minutes on evaluation of the patient in the ED, managing patient's hypotension, vasopressor titration, managing patient's hyperkalemia, review of all the labs and images, close hemodynamic monitoring Total time managing care of this patient today: 35 minutes.
--- NOTE | 2024-05-02 12:00 | PC.NURSE ---
Attempted to medicate Pt with 11:45a orders. Pt states he is resting comfortably and does not want to take them right now. He is agreeable to taking his medications in about 30 minutes. Pt allowed to rest.
[2024-05-02] MEDS: Omeprazole 20 MG CAPSULE.DR PO (12:46)
[2024-05-02] MEDS: Ezetimibe 10 MG TABLET PO (12:47)
[2024-05-02] MEDS: Apixaban 5 MG TABLET PO ×2 (12:47→20:32)
[2024-05-02] MEDS: Sertraline HCL 50 MG TABLET 150 MG PO (12:47)
--- NOTE | 2024-05-02 13:11 | PC.NURSE ---
Call placed to QUINTON Cantrell in ICU for report. Tamia given opportunity for questions and all questions answered to satisfaction. This RN escorted Pt to ICU with transport and care relinquished to [facility].
[2024-05-02] MEDS: Lactated Ringers 500 ML 999 ML IV (13:54)
[2024-05-02] MEDS: Levothyroxine Sodium 125 MCG TABLET PO (14:32)
[2024-05-02] MEDS: Midodrine HCl 10 MG TABLET PO ×2 (16:41→20:32)
[2024-05-02] MEDS: Atorvastatin Calcium 80 MG TABLET PO (20:31)
[2024-05-03] VITALS (18 sets, daily range): BP systolic 98–131; BP diastolic 45–94; PULSE 61–98; RESP 16–26; TEMP 36.2–36.7; O2SAT 94–99; BMI 26.3
[2024-05-03 05:40] LABS: Imm Gran Abs Auto 0.06 X10*3/uL (0.00-0.03); Imm Gran Pct Auto 1.2 % (0.0-0.4); Lymphocytes Absolute Auto 0.8 X10*3/uL (1.2-4.9); PLT CLUMP 1
[2024-05-03 05:42] LABS: Basophils Absolute Auto 0.1 X10*3/uL (0.0-0.2); Eosinophils Absolute Auto 0.1 X10*3/uL (0.0-0.4); Hematocrit 32.4 % (42.0-52.0); Lymphocytes Percent Auto 15.1 % (20-40); MANUAL DIFF FLAG SCAN; Mean Corpuscular HGB Conc 30.9 g/dl (31.0-36.0); Mean Corpuscular Hemoglobin 27.9 pg (27.0-33.0); Mean Corpuscular Volume 90.5 fL (80.0-98.0); Monocytes Percent Auto 20.4 % (2-11); Neutrophils Absolute Auto 3.1 x10*3/uL (2.0-8.3); Neutrophils Percent Auto 61.3 % (45-73); Red Blood Count 3.58 X10*6/uL (4.60-5.80); Red Cell Distribution Width 15.4 % (11.0-16.0); SCAN SMEAR FLAG 1
[2024-05-03 05:48] LABS: Platelet Count 117 X10*3/uL (160-400); White Blood Count 5.1 X10*3/uL (4.8-10.8)
[2024-05-03 05:54] LABS: Anion Gap 19 (12-20); Blood Urea Nitrogen 38 mg/dL (9-16); Calcium 9.5 mg/dL (8.4-10.2); Carbon Dioxide 18 mmol/L (22-29); Chloride 110 mmol/L (96-108); Creatinine Clr Calc Pharmacy 41.9; Estimated Glomerular Filt Rate 42; Glucose Random 146 mg/dL (60-115); Magnesium 2.5 mg/dL (1.6-2.6); Sodium 142 mmol/L (135-145)
[2024-05-03 06:01] LABS: SLIDE REVIEW VERIFIED
[2024-05-03] MEDS: Levothyroxine Sodium 125 MCG TABLET PO (06:16)
[2024-05-03] MEDS: Omeprazole 20 MG CAPSULE.DR PO (06:16)
--- NOTE | 2024-05-03 07:00 | CA_ITS ---
Transthoracic Echocardiogram Amended Patient (Last, First, Middle): Kevin Aguero, Gender: Male Date of : 1950 Age: 73 Procedure Date: 05/03/2024 Procedure Type: Transthoracic Echocardiogram Location: ICU Height: 180.34 cm Weight: 90.72 kg BSA: 2.11 m2 Heart Rate: bpm BP: 103 / 63 mmHg Engineer Soils: ROX Referring MD: Pipo Haynes MD Symptoms: postural SOB Study Quality: Fair, contrast ECG Rhythm: Sinus Conclusions: - The left ventricular systolic function is severely decreased. The calculated ejection fraction is 23% by biplane method. - Evidence suggests grade III (severe) diastolic dysfunction. - Severely increased right ventricular cavity size. - Probable moderate aortic stenosis, paradoxical low-flow, low gradient type. - There is moderate mitral valve regurgitation. - There is mild to moderate tricuspid valve regurgitation. - Severe pulmonary hypertension is present. Findings Procedure Information Contrast agent, definity, is being given per protocol without apparent complications. Left Ventricle Moderately increased left ventricular cavity size. There is normal left ventricular wall thickness. The left ventricular systolic function is severely decreased. The calculated ejection fraction is 23% by biplane method. There is evidence of regional wall motion abnormalities. There is severe global hypokinesis. Evidence suggests grade III (severe) diastolic dysfunction. Wall Motion Rest Echo Findings The basal inferior segment is akinetic. Right Ventricle Severely increased right ventricular cavity size. There is normal right ventricular systolic function. There is an ICD wire seen in the right ventricle. Atria The left atrium is moderately dilated. The right atrium is severely dilated. Aortic Valve There is moderate calcification of the aortic valve. There is mild aortic valve regurgitation. Dimensionless index 0.3. Stroke volume index 14ml/m2. Probable moderate stenosis, paradoxical low-flow, low gradient type. Mitral Valve The mitral valve appears normal. There is moderate mitral valve regurgitation. There is no mitral valve stenosis. Pulmonic Valve The pulmonic valve is likely normal. Tricuspid Valve There is mild to moderate tricuspid valve regurgitation. The right ventricular systolic pressure is 86 mmHg. Severe pulmonary hypertension is present. Great Vessels The asc aorta is normal in size. Venous The inferior vena cava is dilated and collapses less than 50% with inspiration. Pericardium/Pleural There is no evidence of pericardial effusion. Prior Study Comparison Changes noted compared to prior study dated: 11/17/2023. Pulmonary hypertension is worse. Progression of aortic stenosis. Measurements 2D Linear Measurements IVSd: 0.92 0.6-0.9/0.6-1.0 cm LVIDd: 6.35 3.9-5.3/4.2-5.9 cm LVIDd Index: 3.01 2.4-3.2/2.2-3.1 cm/m2 LVIDs: 5.51 2.0-3.6 cm LVPWd: 0.79 0.7-1.1 cm LA Diam: 5.40 2.7-3.8/3.0-4.0 cm LAIDs Index: 2.56 1.5-2.3 cm/m2 LV Mass: 276.24 67-162/88-224 g LV Mass Index: 130.92 43-95/49-115 g/m2 LVOT Diam: 2.00 3.0+(-)1.3 cm 2D Volumes LA Vol: 51.20 2D Systolic Function EF 4C: 24.20 >55% EF 2C: 19.00 >55% EF BiP: 23.00 >55% Mitral Valve MV Pk E: 0.86 MV PK A: 0.41 MV Decel Time: 141.00 E/A: 2.10 E'Lateral: 7.18 E'Medial: 3.26 E/E' Med: 26.30 E/E' Lat: 11.90 PHT: 41.00 MVA PHT: 5.37 Decel [place]: 6.07 MR Vol - PW Dopp: 30.68 MR VTI: 1.18 MR ERO: 26.00 MR Alias Stanis[place]: 0.35 MR RAD: 0.70 Aortic Valve AoV Pk [place]: 2.03 AoV Mn [place]: 1.26 AoV VTI: 0.32 AoV Pk Grad: 16.00 Aov Mn Grad: 7.00 ALYSSA Cont.VTI: 0.92 LVOT LVOT Pk [place]: 0.61 LVOT Mn [place]: 0.39 LVOT VTI: 0.09 LVOT Pk Grad: 1.00 LVOT Mn Grad: 1.00 LVOT Diam: 2.00 LVOT Area: 3.14 Diastolic Function MV Pk E: 0.86 MV Pk A: 0.41 E/A: 2.10 E'Medial: 3.26 E/E' Med: 26.30 E' Laterial: 7.18 E/E' Lat: 11.90 Right Ventricle TAPSE (mm): 16.80 TVS' [place]: 11.30 Tricuspid Valve TR Pk [place]: 4.21 TR Pk Grad: 71.00 RA Press: 15.00 RVSP: 86.00 Great Vessels Aorta Sinus of Valsalva: 3.03 2.0-3.[address] [place]: 2.25 1.7-3.4 cm Ao Asc: 3.30 2.1-3.4 cm Updated in Other Vendor System with Status of Final Tony Temple MD electronically signed on 05/04/2024 11:57:30 AM with status of Final
[2024-05-03] MEDS: Docusate Sodium 100 MG CAPSULE PO ×2 (07:56→20:45)
[2024-05-03] MEDS: Sertraline HCL 50 MG TABLET 150 MG PO (07:56)
[2024-05-03] MEDS: Apixaban 5 MG TABLET PO ×2 (07:56→20:45)
[2024-05-03] MEDS: Ezetimibe 10 MG TABLET PO (07:56)
[2024-05-03] MEDS: Midodrine HCl 10 MG TABLET PO (07:58)
--- NOTE | 2024-05-03 08:38 | PM.CCPN ---
Subjective Subjective Date of Service: 05/03/24 Critical Care Time (minutes): 35 Comment: JOSEPHINE improvng blood pressures stable overnight respiratory status stable Physical Exam Vital Signs: Vital Signs: Last Vital Signs Temp 97.6 F 05/03/24 08:00 Pulse 81 05/03/24 08:00 Resp 17 05/03/24 08:00 BP 116/80 05/03/24 08:00 Pulse Ox 97 05/03/24 08:00 O2 Del Method Nasal Cannula 05/03/24 08:00 O2 Flow Rate 2 05/03/24 08:00 BMI result Body Mass Index 26.3 General: Not in acute distress, normal appearing Nutritional Appearance: well nourished and normal weight Eyes: appearance normal, both eyes and all related structures; Alignment and Position: alignment normal and position normal Neck: No lymphadenopathy, no thyromegaly Resp: bilateral air entry equal, no added sounds present Cardio: Regular rate, regular rhythm; Heart sounds: S1 normal heart sound present and S2 normal heart sound present GI: soft, nontender, no guarding, no hepatosplenomegaly : bladder normal to inspection, bladder normal to palpation, no renal angle tenderness Skin: no rashes or lesions noted and elasticity normal Neuro: oriented to person, oriented to place, oriented to time and moves all extremities Objective Data Labs 05/03/24 05:21 05/03/24 05:21 Labs: Laboratory Results - last 24 hr 05/02/24 05/02/24 05/03/24 08:42 13:50 05:21 WBC 5.1 RBC 3.58 L Hgb 10.0 L Hct 32.4 L MCV 90.5 MCH 27.9 MCHC 30.9 L RDW 15.4 Plt Count 117 L MPV 12.0 Immature Gran % (Auto) 1.2 H Neut % (Auto) 61.3 Lymph % (Auto) 15.1 L [place] % (Auto) 20.4 H Eos % (Auto) 1.0 Baso % (Auto) 1.0 Lymph # (Auto) 0.8 L [place] # (Auto) 1.0 Eos # (Auto) 0.1 Baso # (Auto) 0.1 Abs Immat Gran (auto) 0.06 H Absolute Neuts (auto) 3.1 Absolute Nucleated RBC 0.000 Nucleated RBC % (auto) 0.0 Smear Tech's Comments VERIFIED Sodium 141 142 Potassium 4.9 5.0 Chloride 108 110 H Carbon Dioxide 17 L 18 L Anion Gap 21 H 19 BUN 40 H 38 H Creatinine 1.95 H 1.62 H Estim Creat Clear Calc 37.7 41.9 Estimated GFR 34 42 Random Glucose 187 H 146 H Calcium 9.5 9.5 Phosphorus 4.0 Magnesium 2.5 Microbiology Microbiology Results: Microbiology 05/02/24 06:09 Blood - Venous Blood Culture - Preliminary No growth after 24 hours. 05/02/24 06:09 Blood - Venous Blood Culture - Preliminary No growth after 24 hours. Progress Note: A&P Assessment and plan (1) HTN (hypertension): Status: Acute (2) Acute hypotension: Status: Acute (3) Systolic CHF: Status: Acute (4) CHF (congestive heart failure): Status: Acute (5) Acute exacerbation of chronic heart failure: Status: Acute Plan Cardiogenic shock: Shock is possibly secondary to aggressive and over-diuresis. Vasopressors has been tapered off at 9AM yesterday, blood pressures have been stable overnight. On Overall fluid balance net positive 700 cc in the past 24 hours Ischemic cardiomyopathy: His last TTE showed EF of 20-25% with grade 2 diastolic dysfunction in 11/21/2023 Given his positional dyspnea we will repeat another echo he will look for any valvular abnormalities Continue home aspirin, ezetimibe Hold off on Entresto, metoprolol given his hypotension Acute on chronic kidney disease: Patient has underlying CKD, acute worsening was secondary to over diuresis currently is improved and his creatinine is close to his baseline which is 1.62 Acute hyperkalemia: Possibly secondary to poor tubular flow from volume depletion Medically managed, repeat potassium is improved Paroxysmal atrial fibrillation: Continue apixaban, we will hold metoprolol due to hypotension Hypothyroidism: continue levothyroxine Prophylaxis: Apixaban and omeprazole Quality Stroke Does the patient have a stroke diagnosis?: No VTE Prior VTE?: No VTE Risk Level:: Medical - moderate - high VTE Device Contraindication: N/A - Device Ordered VTE Drug Contraindication: N/A - Med Ordered
[2024-05-03] MEDS: Furosemide 40 MG TABLET PO (09:32)
[2024-05-03] MEDS: Aspirin 81 MG TAB.CHEW PO (09:32)
[2024-05-03] MEDS: Tamsulosin HCL 0.4 MG CAPSULE PO (09:32)
--- NOTE | 2024-05-03 09:49 | P.CONCA_ITS ---
History of Present Illness History of Present Illness Date of Service: 05/03/24 Chief complaint: decompensated heart failure Narrative: This is a cardiology consultation regarding congestive heart failure. Patient has generally seen by Dr. Jules. Has a history of prior myocardial infarction and cardiomyopathy. Ejection fraction in the 25-30% range. Also has [id number] mitral regurgitation. It seems that he was recently in the hospital for shortness of breath and treated for congestive heart failure. At that time, it seems diuretic dosing was increased and spironolactone added. Any case, currently he is readmitted for shortness of breath but very vague history. He states he can not describe his symptoms well. Sometimes even minimal activity makes him short of breath but other times not. He also had shortness of breath with bending down. Any case, if it is admitted and he was thought to be hypotensive from over-diuresis and put on pressors. Now he is off that. Blood pressure seems stable. Clinically, no overt symptoms at this time but he is resting in bed. Review of Systems 2 Review of Systems: Yes all other systems are reviewed and are negative Constitutional: Constitutional: Reports as per HPI and Reports no additional constitutional complaints Eyes: Eyes: Reports as per HPI and Denies no additional eye complaints ENT: Denies system reviewed and no additional complaints, except as documented and Reports as per HPI Cardiovascular: Cardiovascular: Reports as per HPI, Reports no additional cardiovascular complaints, Denies acrocyanosis, Denies cool extremities, Denies chest pain, Denies leg edema, Denies lightheadedness, Denies palpitations and Reports dyspnea Respiratory: Respiratory: Reports as per HPI, Denies no additional respiratory complaints and Reports dyspnea Gastrointestinal: Gastrointestinal: Reports as per HPI and Denies no additional gastrointestinal complaints Genitourinary: Genitourinary: Reports no additional male genitourinary complaints and Reports as per HPI Musculoskeletal: Musculoskeletal: Reports no additional musculoskeletal complaints and Reports as per HPI Integumentary/Breasts: Skin/Breast: Reports system reviewed and no additional complaints, except as docu Neurologic: Reports system reviewed and no additional complaints, except as documented and Reports as per HPI Psychiatric: Psychiatric: Reports no additional psychiatric complaints and Reports as per HPI Endocrine: Endocrine: Reports no additional endocrine complaints, Reports as per HPI and Denies palpitations Hematologic/Lymphatic: Hematologic/Lymphatic: Reports no additional hematologic/lymphatic complaints and Reports as per HPI Allergic/Immunologic: Allergic/Immunologic: Reports no additional allergic/immunologic complaints and Reports as per HPI [facility] Past Medical History Medical History HTN (hypertension) Chronic anemia Elevated cholesterol CAD (coronary artery disease) Paroxysmal atrial fibrillation Thrombocytopenia Systolic CHF Fatty liver Macular degeneration of right eye ICD (implantable cardioverter-defibrillator) in place Hypothyroid GERD (gastroesophageal reflux disease) Depression, major, 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 Congenital bilateral renal cysts Chronic renal insufficiency, stage IV (severe) BPH (benign prostatic hyperplasia) ASHD (arteriosclerotic heart disease) Metal foreign body in lower leg Myocardial infarct Family History Pertinent family history: No pertinent family history Surgical History Surgical History Hx of rotator cuff surgery H/O colonoscopy Social History Social History Household Members: None Housing: Condominium Do you presently have visiting nurse or other home services: Yes Patient Tobacco Use Status: Former Tobacco user Years Smoked: quit 40 years ago e-Cigarette/Vaping Use: Never Used Second Hand Smoke Exposure: No Advance Directives Date on File: 03/16/23 service: No Current occupational status: retired Cognitive needs: No Hearing needs: No Vision needs: No Meds Allergies Allergy/AdvReac Type Severity Reaction Status Date / Time No Known Allergies Allergy Verified 05/02/24 05:09 Active Medications: Current Medications Apixaban (Apixaban 5 Mg Tablet) 5 mg PO BID [facility] Last Admin: 05/03/24 07:56 Dose: 5 mg Aspirin (Aspirin 81 Mg Tab.Chew) 81 mg PO DAILY [facility] Last Admin: 05/03/24 09:32 Dose: 81 mg Atorvastatin Calcium (Atorvastatin Calcium 80 Mg Tablet) 80 mg PO BEDTIME [facility] Last Admin: 05/02/24 20:31 Dose: 80 mg Docusate Sodium (Docusate Sodium 100 Mg Capsule) 100 mg PO BID [facility] Last Admin: 05/03/24 07:56 Dose: 100 mg Ezetimibe (Ezetimibe 10 Mg Tablet) 10 mg PO DAILY [facility] Last Admin: 05/03/24 07:56 Dose: 10 mg Furosemide (Furosemide 40 Mg Tablet) 40 mg PO DAILY [facility]; Protocol Last Admin: 05/03/24 09:32 Dose: 40 mg Levothyroxine Sodium (Levothyroxine Sodium 125 Mcg Tablet) 125 mcg PO DAILY@0600 [facility] Last Admin: 05/03/24 06:16 Dose: 125 mcg Midodrine (Midodrine Hcl 10 Mg Tablet) 10 mg PO TID [facility] Last Admin: 05/03/24 07:58 Dose: 10 mg Omeprazole (Omeprazole 20 Mg Capsule.) 20 mg PO DAILY@0630 [facility] Last Admin: 05/03/24 06:16 Dose: 20 mg Sertraline HCl (Sertraline Hcl 50 Mg Tablet) 150 mg PO DAILY [facility] Last Admin: 05/03/24 07:56 Dose: 150 mg Tamsulosin HCl (Tamsulosin Hcl 0.4 Mg Capsule) 0.4 mg PO DAILY [facility] Last Admin: 05/03/24 09:32 Dose: 0.4 mg Triamcinolone Acetonide (Triamcinolone Acet 0.1 % Cream 15 Gm Tube) 1 appl TOPICAL BID PRN PRN Reason: skin irritation Home Medications ?Medication ?Instructions ?Recorded ?Confirmed ?Last Taken ?Type omeprazole 20 mg capsule,delayed 20 mg PO DAILY@0630 04/25/24 05/02/24 05/01/24 History release furosemide 40 mg tablet 40 mg PO DAILY 05/02/24 05/02/24 05/01/24 History Physical Exam 2 Vital Signs: Vital Signs: Last Vital Signs Temp 97.6 F 05/03/24 08:00 Pulse 91 05/03/24 09:00 Resp 23 H 05/03/24 09:00 BP 116/89 05/03/24 09:32 Pulse Ox 99 05/03/24 09:00 O2 Del Method Nasal Cannula 05/03/24 09:00 O2 Flow Rate 2 05/03/24 09:00 BMI result Body Mass Index 26.3 Const: General: comfortable and no acute distress O rientation/consciousness: patient oriented x3 HEENT: Other: Unremarkable Head: Yes normal to inspection Neck: Neck: Yes normal visual inspection Chest: Chest palpation & inspection: normal inspection of the chest Resp: Auscultation: clear to auscultation bilaterally Cardio: Palpation: normal PMI Heart sounds: S1 normal heart sound present, S2 normal heart sound present, no gallops, no murmurs and no rubs GI: Palpation (GI): Soft to palpation Back/Spine/Pelvis: Other: unremarkable Skin: General skin exam: no rashes or lesions noted Neuro: General: patient oriented x3 Extrem: General: Yes normal to inspection Psych: Mental Status: mental status grossly normal Objective Labs and Meds 05/03/24 05:21 05/03/24 05:21 Lab results: Laboratory Results - last 24 hr 05/02/24 05/03/24 13:50 05:21 WBC 5.1 RBC 3.58 L Hgb 10.0 L Hct 32.4 L MCV 90.5 MCH 27.9 MCHC 30.9 L RDW 15.4 Plt Count 117 L MPV 12.0 Immature Gran % (Auto) 1.2 H Neut % (Auto) 61.3 Lymph % (Auto) 15.1 L Pine % (Auto) 20.4 H Eos % (Auto) 1.0 Baso % (Auto) 1.0 Lymph # (Auto) 0.8 L Pine # (Auto) 1.0 Eos # (Auto) 0.1 Baso # (Auto) 0.1 Abs Immat Gran (auto) 0.06 H Absolute Neuts (auto) 3.1 Absolute Nucleated RBC 0.000 Nucleated RBC % (auto) 0.0 Smear Tech's Comments VERIFIED Sodium 142 Potassium 5.0 Chloride 110 H Carbon Dioxide 18 L Anion Gap 19 BUN 38 H Creatinine 1.62 H Estim Creat Clear Calc 41.9 Estimated GFR 42 Random Glucose 146 H Calcium 9.5 Phosphorus 4.0 Magnesium 2.5 ECG Interpretation: EKG shows some atrial pacing as well as sinus rhythm; nonspecific ST-T changes. Assessment and Plan (1) Acute on chronic heart failure with reduced ejection fraction (HFrEF, <= 40%): Status: Acute (2) Acute hypotension: Status: Acute Plan Renal function is just about his baseline. Cardiac BNP is 2954. Repeat level is 2490. Last week, it was 2775. In 2022, it was only 265. Overall, suspect that he probably had a heart failure exacerbation. His blood pressure was lowish on arrival but he does have a history of low blood pressure going back. Resume his diuretics. It seems he has been put on midodrine. Once he is back in the floor, these medications will need to be adjusted. We can try to wean this off and then get him back on his usual heart failure regimen as guided by his blood pressure. We will review the echocardiogram that is going to be completed today. We will follow up with you. Procedures Date of Service Date of Service: 05/03/24
--- NOTE | 2024-05-03 14:25 | MHC.CM.PN ---
Addendum entered by Devorah Levine 05/03/24 14:35: Pt d/c'd from [facility] as OBS on 04/26 w/new [facility]. He was independent, had no DME and family transported pt to home. Will re-refer to [facility] at this time Original Note: Attempted to meet with pt to discuss d/c planning needs: pt sleeping x 2. Review of HCP notes error - alternate proxy signed as a witness: pt will need corrected proxy. Message left for pt's brother, Saurabh in the interim. Will await callback - will attempt to meet with pt again to complete assessment and d/c planning needs. [facility] on file
--- NOTE | 2024-05-03 15:27 | PM.EVENT ---
Event Note Date of Service: 05/03/24 Event Note: Presented to the ED with shortness of breath found to be hypotensive and admitted to the ICU 05/02. Treated with IV fluid and vasopressors downgraded to the medical floor 05/03 wean midodrine as bp allows follow up echo, report pending wean o2 as tolerated cardiology following Time Spent With Patient Time: Total time managing care of this patient today ____ minutes.
[2024-05-03] MEDS: Midodrine HCl 5 MG TABLET PO (17:13)
[2024-05-03] MEDS: Atorvastatin Calcium 80 MG TABLET PO (20:45)
[2024-05-04 03:55] VITALS: BP 101/62; PULSE 75; RESP 20; TEMP 36.3; O2SAT 93
--- NOTE | 2024-05-04 04:48 | PC.NURSE ---
Patient is steady on feet, alert and oriented. Fall risk changed to low.
[2024-05-04] MEDS: Omeprazole 20 MG CAPSULE.DR PO (05:55)
[2024-05-04] MEDS: Levothyroxine Sodium 125 MCG TABLET PO (05:55)
[2024-05-04 06:00] VITALS: BMI 27.0
[2024-05-04 07:51] VITALS: BP 97/62; PULSE 81; RESP 16; TEMP 36.8; O2SAT 93
[2024-05-04] MEDS: Apixaban 5 MG TABLET PO ×2 (08:44→22:07)
[2024-05-04] MEDS: Tamsulosin HCL 0.4 MG CAPSULE PO (08:44)
[2024-05-04] MEDS: Furosemide 40 MG TABLET PO (08:44)
[2024-05-04] MEDS: Docusate Sodium 100 MG CAPSULE PO ×2 (08:44→22:07)
[2024-05-04] MEDS: Midodrine HCl 5 MG TABLET PO ×3 (08:45→16:38)
[2024-05-04] MEDS: Sertraline HCL 50 MG TABLET 150 MG PO (08:45)
[2024-05-04] MEDS: Ezetimibe 10 MG TABLET PO (08:45)
[2024-05-04] MEDS: Aspirin 81 MG TAB.CHEW PO (08:45)
--- NOTE | 2024-05-04 11:12 | PM.PNCARD ---
Subjective Subjective Date of Service: 05/04/24 Interval history: Seen and examined patient. He is lying down comfortably in bed. He states he is okay and does not have any acute complaints. Review of Systems Review of Systems Yes all other systems are reviewed and are negative Constitutional: Reports as per HPI and Reports no additional constitutional complaints Eyes: Reports as per HPI and Denies no additional eye complaints Denies system reviewed and no additional complaints, except as documented and Reports as per HPI Cardiovascular: Reports as per HPI, Reports no additional cardiovascular complaints, Denies acrocyanosis, Denies cool extremities, Denies chest pain, Denies leg edema, Denies lightheadedness, Denies palpitations and Denies dyspnea Respiratory: Reports as per HPI, Denies no additional respiratory complaints and Denies dyspnea Gastrointestinal: Reports as per HPI and Denies no additional gastrointestinal complaints Genitourinary: Reports no additional male genitourinary complaints and Reports as per HPI Musculoskeletal: Reports no additional musculoskeletal complaints and Reports as per HPI Skin/Breast: Reports system reviewed and no additional complaints, except as docu Reports system reviewed and no additional complaints, except as documented and Reports as per HPI Psychiatric: Reports no additional psychiatric complaints and Reports as per HPI Endocrine: Reports no additional endocrine complaints, Reports as per HPI and Denies palpitations Hematologic/Lymphatic: Reports no additional hematologic/lymphatic complaints and Reports as per HPI Allergic/Immunologic: Reports no additional allergic/immunologic complaints and Reports as per HPI Physical Exam Vital Signs: Last Vital Signs Temp 98.2 F 05/04/24 07:51 Pulse 81 05/04/24 07:51 Resp 16 05/04/24 07:51 BP 97/62 05/04/24 07:51 Pulse Ox 93 05/04/24 07:51 O2 Del Method Room Air 05/04/24 07:51 O2 Flow Rate 2 05/03/24 11:55 BMI result Body Mass Index 27.0 Const General: comfortable and no acute distress Orientation/consciousness: patient oriented x3 HEENT Other: Unremarkable Head: Yes normal to inspection Neck Neck: Yes normal visual inspection Chest Chest palpation & inspection: normal inspection of the chest Resp Auscultation: clear to auscultation bilaterally Cardio Palpation: normal PMI Heart sounds: S1 normal heart sound present, S2 normal heart sound present, no gallops, no murmurs and no rubs GI Palpation (GI): Soft to palpation Back/Spine/Pelvis Other: unremarkable Skin General skin exam: no rashes or lesions noted Neuro General: patient oriented x3 Extrem General: Yes normal to inspection Psych Mental Status: mental status grossly normal Objective Labs and Meds 05/03/24 05:21 05/03/24 05:21 Progress Note: A&P Assessment and plan (1) Acute on chronic heart failure with reduced ejection fraction (HFrEF, <= 40%): Status: Acute (2) Acute hypotension: Status: Acute Plan In the echocardiogram yesterday, LVEF is 23% with advanced diastolic dysfunction. Severely increased right ventricular size. Probably moderate aortic stenosis. Severe pulmonary hypertension. Renal function is just about his baseline. Elevated cardiac BNP levels. Overall, suspect that he had yet another heart failure exacerbation. His blood pressure was lowish on arrival and was thought to be from over diuresis but do not believe that is the case. In fact, it is more likely a sign of worsening cardiac function. Hypotension in this case indicates worse prognosis. All his heart failure medications have been stopped and he is now on midodrine. His IVC is still seem dilated and hence reflects high filling pressures. Okay to try another dose of diuretic today as long as the blood pressure is stable. Continue midodrine. It seems Jardiance was started last time but he states he has not picked it up in the pharmacy and may not be able tolerate anyway. Overall, guarded prognosis and we discussed that today. Discussed with hospitalist. Time Spent With Patient Time: Total time managing care of this patient today ____ minutes. Progress Note: Quality Stroke Does the patient have a stroke diagnosis?: No Procedures Date of Service Date of Service: 05/04/24
[2024-05-04 11:55] VITALS: BP 109/68; PULSE 91; RESP 19; TEMP 36.7; O2SAT 98
[2024-05-04] MEDS: Furosemide 40 MG/4 ML VIAL IVPUSH (12:13)
--- NOTE | 2024-05-04 12:56 | P.PNIM_ITS ---
Subjective Subjective Date of Service: 05/04/24 Interval History: Seen and examined morning Follow-up, downgraded from the ICU 05/03 Denies shortness of breath, chest pain. Does not have much of an appetite but no abdominal pain and overall feeling well Review of Systems Review of Systems: Yes all other systems are reviewed and are negative Constitutional Constitutional: Denies chills and Denies fever(s) Cardiovascular Cardiovascular: Denies chest pain, Denies palpitations and Denies dyspnea Respiratory Respiratory: Denies cough and Denies dyspnea Gastrointestinal Gastrointestinal: Denies abdominal pain, Denies nausea and Denies vomiting Endocrine Endocrine: Denies palpitations Physical Exam 2 Vital Signs: Vital Signs: Last Vital Signs Temp 98.0 F 05/04/24 11:55 Pulse 91 05/04/24 11:55 Resp 19 05/04/24 11:55 BP 109/68 05/04/24 11:55 Pulse Ox 98 05/04/24 11:55 O2 Del Method Room Air 05/04/24 07:51 O2 Flow Rate 2 05/03/24 11:55 BMI result Body Mass Index 27.0 Const: General: comfortable, no acute distress, alert and awake Nutritional Appearance: average body habitus Orientation/consciousness: patient oriented x3 Resp: Effort & Inspection: normal respiratory effort, able to speak in complete sentences, no respiratory distress and no use of accessory muscles A uscultation: clear to auscultation bilaterally Cardio: Rate: regular rate GI: Inspection: No distended Palpation (GI): Soft to palpation and nontender Neuro: General: patient oriented x3, moves all extremities and CN's II-XI intact bilaterally Extrem: General: Yes no pedal edema Objective Data Active Medications Apixaban (Apixaban 5 Mg Tablet) 5 mg PO BID [facility] Last Admin: 05/04/24 08:44 Dose: 5 mg Documented By: BRIANA Aspirin (Aspirin 81 Mg Tab.Chew) 81 mg PO DAILY [facility] Last Admin: 05/04/24 08:45 Dose: 81 mg Documented By: BRIANA Atorvastatin Calcium (Atorvastatin Calcium 80 Mg Tablet) 80 mg PO BEDTIME [facility] Last Admin: 05/03/24 20:45 Dose: 80 mg Documented By: HERMINIA Docusate Sodium (Docusate Sodium 100 Mg Capsule) 100 mg PO BID [facility] Last Admin: 05/04/24 08:44 Dose: 100 mg Documented By: BRIANA Ezetimibe (Ezetimibe 10 Mg Tablet) 10 mg PO DAILY [facility] Last Admin: 05/04/24 08:45 Dose: 10 mg Documented By: BRIANA Furosemide (Furosemide 40 Mg Tablet) 40 mg PO DAILY [facility]; Protocol Last Admin: 05/04/24 08:44 Dose: 40 mg Documented By: BRIANA Levothyroxine Sodium (Levothyroxine Sodium 125 Mcg Tablet) 125 mcg PO DAILY@0600 [facility] Last Admin: 05/04/24 05:55 Dose: 125 mcg Documented By: HERMINIA Midodrine (Midodrine Hcl 5 Mg Tablet) 5 mg PO TID@0900,1300,1700 [facility] Last Admin: 05/04/24 12:13 Dose: 5 mg Documented By: BRIANA Omeprazole (Omeprazole 20 Mg Capsule.) 20 mg PO DAILY@0630 [facility] Last Admin: 05/04/24 05:55 Dose: 20 mg Documented By: HERMINIA Sertraline HCl (Sertraline Hcl 50 Mg Tablet) 150 mg PO DAILY [facility] Last Admin: 05/04/24 08:45 Dose: 150 mg Documented By: BRIANA Tamsulosin HCl (Tamsulosin Hcl 0.4 Mg Capsule) 0.4 mg PO DAILY [facility] Last Admin: 05/04/24 08:44 Dose: 0.4 mg Documented By: BRIANA Triamcinolone Acetonide (Triamcinolone Acet 0.1 % Cream 15 Gm Tube) 1 appl TOPICAL BID PRN PRN Reason: skin irritation Labs 05/03/24 05:21 05/03/24 05:21 Microbiology Microbiology Results: Microbiology 05/02/24 06:09 Blood Culture - Preliminary Blood - Venous No growth after 48 hours. 05/02/24 06:09 Blood Culture - Preliminary Blood - Venous No growth after 48 hours. Assessment and Plan (1) Ischemic cardiomyopathy: Status: Acute Plan This is a 73-year-old male with history of ischemic cardiomyopathy, atrial fibrillation on Eliquis, CKD who presented to the emergency department with shortness of breath found to be hypotensive and ultimately admitted to ICU where he received vasopressor support and IV fluids and was started on oral midodrine. He was downgraded from the ICU on 05/03. Acute on Chronic HFrEF/Ischemic cardiomyopathy EF 20-25% with grade 3 diastolic dysfunction, severe pulmonary hypertension, severely increased right ventricular size, probable moderate aortic stenosis. Per cardiology hypotension likely indication of worsening cardiac function and overall poor prognosis IVC dilated, Cardiology recommends continued IV diuresis Jardiance added last admission, has not yet filled prescription, will Hold Entresto, Aldactone on hold due to hypotension Follow I's and O's Hypotension Presumed due to worsening cardiac function No source of infection identified. Urine culture, blood culture negative Midodrine weaned to 5 mg t.i.d. JOSEPHINE on CKD3 Creatinine appears to be baseline Hyperkalemia Resolved Paroxysmal atrial fibrillation Metoprolol on hold due to hypotension Continue Eliquis for anticoagulation hypothyroidism continue Synthroid mood disorder sertraline BPH tamsulosin Thrombocytopenia Chronic, at baseline VTE ppx- Eliquis Patient requires ongoing inpatient hospitalization for management of hypotension, heart failure requiring specialist evaluation IV medications as well as close monitoring of respiratory status Quality Stroke Does the patient have a stroke diagnosis?: No VTE Prior VTE?: No VTE Risk Level:: Medical - moderate - high VTE Device Contraindication: N/A - Device Ordered VTE Drug Contraindication: N/A - Med Ordered
--- NOTE | 2024-05-04 13:10 | MHC.CM.PN ---
Per rounds, pt is not ready for DC, he requires ongoing treatment for acute on chronic heart failure with reduces ejection fracture. CM attempeted to meet with pt to update HCP, (on current HCP form, alternate proxy signed as witness). Pt very tired, CM to come back later to review this. Pt. has been accepted by [facility] after DC.
[2024-05-04 15:56] VITALS: BP 96/60; PULSE 72; RESP 19; O2SAT 91
[2024-05-04 20:00] VITALS: BP 133/69; PULSE 77; RESP 12; TEMP 36.2; O2SAT 93
[2024-05-04] MEDS: Atorvastatin Calcium 80 MG TABLET PO (22:07)
[2024-05-05] VITALS: PULSE 76; RESP 12; TEMP 36.4; O2SAT 95
[2024-05-05 03:59] VITALS: BP 117/72; PULSE 96; RESP 18; TEMP 36.7; O2SAT 94
[2024-05-05 05:34] VITALS: BMI 24.9
[2024-05-05] MEDS: Omeprazole 20 MG CAPSULE.DR PO (05:40)
[2024-05-05] MEDS: Levothyroxine Sodium 125 MCG TABLET PO (05:40)
[2024-05-05 07:15] LABS: Anion Gap 16 (12-20); Blood Urea Nitrogen 27 mg/dL (9-16); Calcium 9.7 mg/dL (8.4-10.2); Carbon Dioxide 26 mmol/L (22-29); Chloride 108 mmol/L (96-108); Creatinine Clr Calc Pharmacy 46.8; Estimated Glomerular Filt Rate 47; Glucose Random 139 mg/dL (60-115); Potassium 3.6 mmol/L (3.3-5.1); Sodium 146 mmol/L (135-145)
[2024-05-05 07:23] LABS: B Type Natriuretic Peptide 3046 pg/mL (<100)
[2024-05-05 07:48] VITALS: BP 100/63; PULSE 89; RESP 18; TEMP 37.1; O2SAT 97
[2024-05-05] MEDS: Aspirin 81 MG TAB.CHEW PO (09:06)
[2024-05-05] MEDS: Docusate Sodium 100 MG CAPSULE PO (09:06)
[2024-05-05] MEDS: Sertraline HCL 50 MG TABLET 150 MG PO (09:06)
[2024-05-05] MEDS: Ezetimibe 10 MG TABLET PO (09:06)
[2024-05-05] MEDS: Tamsulosin HCL 0.4 MG CAPSULE PO (09:06)
[2024-05-05] MEDS: Furosemide 40 MG TABLET PO (09:07)
[2024-05-05] MEDS: Midodrine HCl 5 MG TABLET PO ×2 (09:15→14:28)
[2024-05-05] MEDS: Apixaban 5 MG TABLET PO (09:15)
[2024-05-05 11:26] VITALS: BP 100/62; PULSE 77; RESP 18; TEMP 36.7; O2SAT 96
--- NOTE | 2024-05-05 11:56 | PM.DS ---
DS: Providers Provider Date of Service: 05/05/24 Date of admission: 05/02/24 11:34 Date of discharge: 05/05/24 Primary care physician: TONI KrugerPMargaret Consults: 05/02/24 14:02 Consult to Cardiology Routine Consulting Provider: [facility] Reason for consultation: CHF Has provider been notified: No Attending physician on discharge: Day Ramirez Discharging clinician: Mireya Connolly DS: Diagnosis Discharge Diagnosis (1) Ischemic cardiomyopathy: Status: Acute DS: Summary Hospital Course Hospital Course: From H&P on the day of admission 73-year-old gentleman with past medical history of ischemic cardiomyopathy with last TTE showing EF 25-30% and grade 2 diastolic dysfunction, history of CAD, history of paroxysmal atrial fibrillation on Eliquis at home, hyperlipidemia, chronic kidney disease, mood disorder presents to the hospital because he becomes short of breath upon certain posture which last for about 2-3 seconds and then goes away. Because of this patient has taken more doses of diuretics but his shortness of breath is not getting better so he is here. His shortness of breath is positional, mostly on bending forwards, affecting his daily life, not disturbing his sleep. Denies any fever, denies cough, denies diarrhea or any other symptoms Patient likes to talk a lot and often deviates from the questions asked, it is very hard to get appropriate and non- sarcastic answers from him Acute on Chronic HFrEF/Ischemic cardiomyopathy patient initially presented with symptoms of shortness of breath. EF 20-25% with grade 3 diastolic dysfunction, severe pulmonary hypertension, severely increased right ventricular size, probable moderate aortic stenosis -overall some progression since previous echo done in November 2023. Per cardiology hypotension likely indication of worsening cardiac function and overall poor prognosis. He was treated with gentle diuresis and symptoms of shortness of breath have resolved. He is able to ambulate down the hallway without difficulty and without dyspnea. He has remained on room air. Jardiance added last admission, has not yet filled prescription, will Hold. Entresto, Aldactone on hold due to hypotension. Planned for further medication titration however patient has requested to be discharged home and prefers to have outpatient medication titration. No chest pain, no shortness of breath no overall stable therefore patient will follow-up with cardiology on an outpatient basis. Has an appointment scheduled on May 15. CHF education including daily weights low-salt diet and fluid restriction were discussed in detail. although bnp was higher, patient had no lower extremity edema, lungs were clear to auscultation and patient was able to ambulate twice around the hospital floor without any shortness of breath. He has not had any orthopnea during his hospital stay. Hypotension Presumed due to worsening cardiac function. when trending blood pressure it does appear that his blood pressure is always on the lower side, likely due to reduced EF. No source of infection identified. Urine culture, blood culture negative Midodrine weaned to 5 mg t.i.d. outpatient follow up with PCP recommended JOSEPHINE on CKD3 Creatinine appears to be baseline Hyperkalemia Resolved Hypernatremia Mild, sodium 146. Recommend repeat chemistry next week Time Attestation Discharge Coordination Time (in mins): 40 Quality: Safe Use of Opioids Does Pt have an Active Cancer Diagnosis on the Problem List?: No Quality: Stroke Does the patient have a stroke diagnosis?: No Physical Exam Vital Signs: Vital Signs: Last Vital Signs Temp 98.1 F 05/05/24 11:26 Pulse 77 05/05/24 11:26 Resp 18 05/05/24 11:26 BP 100/62 05/05/24 11:26 Pulse Ox 96 05/05/24 11:26 O2 Del Method Room Air 05/05/24 11:26 O2 Flow Rate 2 05/03/24 11:55 BMI result Body Mass Index 24.9 Const: General: comfortable, no acute distress, alert and awake Nutritional Appearance: average body habitus Orientation/consciousness: patient oriented x3 Resp: Effort & Inspection: normal respiratory effort, able to speak in complete sentences, no respiratory distress and no use of accessory muscles Auscultation: clear to auscultation bilaterally Cardio: Rate: regular rate GI: Inspection: No distended Palpation (GI): Soft to palpation and nontender Neuro: General: patient oriented x3, moves all extremities and CN's II-XI intact bilaterally Extrem: General: Yes no pedal edema DS: Data Data Completed and Pending Labs on day of discharge: Laboratory Results - last 24 hr 05/05/24 06:10 Sodium 146 H Potassium 3.6 D Chloride 108 Carbon Dioxide 26 Anion Gap 16 BUN 27 H Creatinine 1.45 H Estim Creat Clear Calc 46.8 Estimated GFR 47 Random Glucose 139 H Calcium 9.7 B-Natriuretic Peptide 3046 H Preliminary micro results at discharge 05/02/24 06:09 Blood Culture - Preliminary Blood - Venous No growth after 48 hours. 05/02/24 06:09 Blood Culture - Preliminary Blood - Venous No growth after 48 hours. Discharge Plan Discharge Anticipated Discharge Date/Time: 05/05/24 12:44 Patient Disposition: Home Health Service Discharge Diagnosis: Acute on chronic heart failure with reduced ejection fraction [facility] Karthikeyan Evans, ENV[employer] PL[employer]ING ENGINE[employer]-BC [Primary Care Provider] - 1 Week Discharge Medications: New midodrine 5 mg Tablet 5 mg PO TID@0900,1300,1700 30 Days Qty: 90 0RF Continued sertraline 100 mg tablet 150 mg PO DAILY 90 Days Qty: 135 3RF Eliquis 5 mg tablet 5 mg PO BID 90 Days Qty: 180 3RF levothyroxine 125 mcg tablet 125 mcg PO DAILY@0600 Qty: 90 1RF ezetimibe 10 mg tablet 10 mg PO DAILY 90 Days Qty: 90 1RF betamethasone dipropionate 0.05 % cream 1 appl topical BID PRN (Reason: skin irritation) Qty: 45 1RF tamsulosin 0.4 mg capsule 0.4 mg PO BEDTIME 90 Days Qty: 90 3RF atorvastatin 80 mg tablet 80 mg PO BEDTIME 90 Days Qty: 90 3RF omeprazole 20 mg capsule,delayed release(DR/EC) 20 mg PO DAILY@0630 furosemide 40 mg tablet 40 mg PO DAILY Held spironolactone 25 mg tablet 12.5 mg PO DAILY 90 Days Qty: 45 3RF Hold Instructions: hold until follow up with cardiology Entresto 97-103 mg tablet 1 tab PO BID Qty: 180 1RF Hold Instructions: hold until follow up with cardiology metoprolol succinate [Toprol XL] 50 mg tablet extended release 24 hr 50 mg PO DAILY Qty: 90 3RF Hold Instructions: hold until follow up with cardiology Discharge Orders: Discharge Order (Routine); Ordered 05/05/24 Ordered By: Mireya Connolly Activity on Discharge: As tolerated Stand Alone Forms: Patient Portal Discharge page Print Language: Maori Other Ambulatory Orders: Basic Metabolic Panel (Routine) Timeframe: [id number] Facility: [facility] - Location: Laboratory Ordered By: Mireya Connolly Care Plan Goals: See below Health Concerns: Acute on chronic heart failure with reduced ejection fraction Low blood pressure Hyperkalemia-resolved Plan of Treatment: Due to low blood pressure have been started midodrine 5 mg 3 times daily. Please take as prescribed Due to low blood pressure Jardiance, Entresto, Aldactone, metoprolol has been placed on hold. follow up with cardiology in office for medication titration monitor daily weight, follow low salt diet return to ED with recurrent shortness of breath repeat BMP next week you will be discharged home with VNA Assessment: See discharge summary Discharge Date/Time: 05/05/24 16:46
--- NOTE | 2024-05-05 13:52 | W.MHC.F2F ---
Service Date Service Date: 05/05/24 Encounter Date of encounter: 05/05/24 Reasons for Services Signs and symptoms assessed: needs senior living for CHF education, blood pressure monitoring, medication reconciliation Reason for senior living: CV/CP assess and/or care MD Overseeing Care: Karthikeyan Evans Homebound: Leaving the home is medically contraindicated at this time without the asist of a device and/or another person due th the listed conditions above and below. Reason homebound: weakness related to hospital stay Certification: Based on the above findings, I certify that this patient is confined to the home and needs intermittent senior living care, physical therapy and/or speech therapy, or continues to need occupational therapy. The patient is under my care, and I have initiated the establishment of the plan of care. The patient will be followed by a physician who will periodically review the plan of care. Time Spent With Patient Time: Total time managing care of this patient today ____ minutes.
[2024-05-05 15:27] VITALS: BP 101/71; PULSE 88; RESP 20; TEMP 36.4; O2SAT 97
--- NOTE | 2024-05-05 16:03 | MHC.CM.PN ---
Addendum entered by Cara Schuler 05/05/24 16:15: NEW HCP COMPLETED BROTHER AT BEDSIDE TO TRANSPORT Original Note: PT WILL DC HOME TODAY WITH RESUMPTION OF [facility]
== END 2024-05-05 16:46 | disposition home health service (06) | DRG 291 ==
LOC: HO.ED 07:28 → HO.EDOVER 11:45 → HO.ICU 12:19 → HO.IMC 05-03 11:56
PROVIDERS: Emergency Medicine; Admitting Provider Internal Medicine Critical Care Medicine; Emergency Provider Emergency Medicine Emergency Medical Services; PCP Nurse Practitioner Family; Visit Provider Physician Assistant Medical
DX: I13.0 Hypertensive heart and chronic kidney disease with heart failure and stage 1 through stage 4 chronic kidney disease, or unspecified chronic kidney disease (principal); I50.23 Acute on chronic systolic (congestive) heart failure; R57.0 Cardiogenic shock; I25.10 Atherosclerotic heart disease of native coronary artery without angina pectoris; E03.9 Hypothyroidism, unspecified; N18.30 Chronic kidney disease, stage 3 unspecified; F39 Unspecified mood [affective] disorder; I34.0 Nonrheumatic mitral (valve) insufficiency; D69.6 Thrombocytopenia, unspecified; E87.5 Hyperkalemia; N40.0 Benign prostatic hyperplasia without lower urinary tract symptoms; E78.5 Hyperlipidemia, unspecified; I48.0 Paroxysmal atrial fibrillation; I27.20 Pulmonary hypertension, unspecified; Z20.822 Contact with and (suspected) exposure to COVID-19; Z95.810 Presence of automatic (implantable) cardiac defibrillator; Z87.891 Personal history of nicotine dependence; Z79.01 Long term (current) use of anticoagulants; Z79.890 Hormone replacement therapy; Z79.899 Other long term (current) drug therapy
CPT/HCPCS: 36415; 71046; 80048; 80053; 83605; 83735; 83880; 84100; 84132; 84484; 85025; 87040; 87502; 87635; 93005; 93306; 94640; 99285; J0456; J0613; J0696; J1940; J7120; P9047

== ENCOUNTER → 2024-05-02 05:01 | Outpatient (BNV) | payer MEDICARE, SELFPAY | PROVIDERS: Admitting Provider Internal Medicine Critical Care Medicine; Emergency Provider Emergency Medicine Emergency Medical Services; PCP Nurse Practitioner Family; Visit Provider Internal Medicine | DX: R94.31 Abnormal electrocardiogram [ECG] [EKG] (principal) | CPT/HCPCS: 93010 ==

== ENCOUNTER 2024-05-02 11:34 | Outpatient (BNV) | payer MEDICARE, SELFPAY | END 2024-05-03 07:00 | PROVIDERS: Admitting Provider Internal Medicine Critical Care Medicine; Emergency Provider Emergency Medicine Emergency Medical Services; PCP Nurse Practitioner Family; Visit Provider Internal Medicine | DX: I35.2 Nonrheumatic aortic (valve) stenosis with insufficiency (principal); I34.0 Nonrheumatic mitral (valve) insufficiency; I36.1 Nonrheumatic tricuspid (valve) insufficiency; I27.20 Pulmonary hypertension, unspecified | CPT/HCPCS: 93306 ==

== ENCOUNTER → 2024-05-02 11:34 | Outpatient (BNV) | payer MEDICARE, SELFPAY | PROVIDERS: Admitting Provider Internal Medicine Critical Care Medicine; Emergency Provider Emergency Medicine Emergency Medical Services; PCP Nurse Practitioner Family; Visit Provider Internal Medicine Critical Care Medicine | DX: I50.20 Unspecified systolic (congestive) heart failure (principal); I50.9 Heart failure, unspecified; I10 Essential (primary) hypertension; I95.9 Hypotension, unspecified | CPT/HCPCS: 99291 ==

== ENCOUNTER → 2024-05-02 11:34 | Outpatient (BNV) | payer MEDICARE, SELFPAY | PROVIDERS: Admitting Provider Internal Medicine Critical Care Medicine; Emergency Provider Emergency Medicine Emergency Medical Services; PCP Nurse Practitioner Family; Visit Provider Internal Medicine | DX: I50.23 Acute on chronic systolic (congestive) heart failure (principal); I95.9 Hypotension, unspecified | CPT/HCPCS: 99223; 99233 ==

== ENCOUNTER → 2024-05-02 11:34 | Outpatient (BNV) | payer MEDICARE, SELFPAY | PROVIDERS: Admitting Provider Internal Medicine Critical Care Medicine; Emergency Provider Emergency Medicine Emergency Medical Services; PCP Nurse Practitioner Family; Visit Provider Physician Assistant Medical | DX: I25.5 Ischemic cardiomyopathy (principal) | CPT/HCPCS: 99233; 99239; 99499; G0180 ==

== ENCOUNTER 2024-05-11 16:48 | Inpatient (IN) | payer MEDICARE, SELFPAY ==
[2024-05-11] VITALS (10 sets, daily range): BP systolic 88–133; BP diastolic 53–77; PULSE 92–110; RESP 22–36; TEMP 36.4–37.2; O2SAT 90–99; BMI 26.0
--- NOTE | ~2024-05-11 | CT_ITS ---
EXAMINATION: CT ABDOMEN AND PELVIS WITHOUT CONTRAST CLINICAL INFORMATION: Multiple lab abnormalities COMPARISON: Ultrasound abdomen earlier today, CT abdomen pelvis 04/05/2010 TECHNIQUE: Multidetector volumetric imaging was performed from the superior aspect of the liver through the pubic symphysis. Sagittal and coronal reformatted images were obtained on the technologist's workstation. This CT examination was performed using dose optimization techniques as appropriate, variously including the following: *Automated exposure control *Adjustment of mA and/or kV according to patient size (this includes techniques or standardized protocols for targeted exams where dose is matched to indication/reason for exam; i.e. extremities or head) *Use of iterative reconstruction technique DLP: 551 mGy-cm FINDINGS: LUNG BASES: Bibasilar groundglass changes are seen which bronchial thickening and bilateral pleural effusions along with cardiomegaly. Findings are consistent with CHF. Pacemaker leads are partially included. LIVER, GALLBLADDER, AND BILIARY TREE: The liver is enlarged at 20 cm in cephalocaudad dimension with decreased attenuation consistent with hepatic steatosis. A 1.6 cm benign cyst is seen in the left lobe of the liver. No concerning solid focal hepatic lesion or biliary ductal dilatation is present. There is cholelithiasis without cholecystitis. PANCREAS: There is some streaky changes seen around the head of the pancreas, most marked between the duodenum and pancreas. This is new when compared to the 04/05/2010 study. There is a less than 2 mm sized calcification seen in the region of the distal duct (7:66), unchanged when compared to 04/05/2010 (prior 102:70). SPLEEN: The spleen is mildly enlarged at 12.5 cm. ADRENAL GLANDS: Unremarkable. KIDNEYS AND URETERS: The kidneys are normal in size, shape, and attenuation. No hydronephrosis, hydroureter, or calculi seen. Bilateral benign Bosniak class I renal cysts are noted which require no additional imaging or follow-up. No solid renal masses are seen. BLADDER: Unremarkable. GASTROINTESTINAL TRACT: The small and large bowel are unremarkable. The appendix is unremarkable. ABDOMINAL WALL: No significant hernia is appreciated. There is a tiny periumbilical hernia seen containing only fat. LYMPH NODES: Normal. VASCULAR: Calcific atherosclerotic changes are present in the aorta and iliofemoral vessels. There is no evidence of an abdominal aortic aneurysm. PELVIC VISCERA: There is mild to moderate BPH. Seminal vesicles appear normal. OSSEOUS STRUCTURES: Degenerative changes are seen at L5-S1. CT/CT abdomen pelvis wo IV con IMPRESSION: 1. Bibasilar groundglass changes with bronchial thickening and bilateral pleural effusions consistent with CHF. 2. Enlarged fatty liver with mild splenomegaly. 3. Cholelithiasis without cholecystitis. 4. Streaky changes around the head of the pancreas. Please correlate with pancreatic enzymes. 5. Other incidental findings as described above. Fleischner guidelines were followed. Electronically signed by: Gerry Pulido MD 05/11/2024 11:36 PM [facility]
--- NOTE | ~2024-05-11 | XR_ITS ---
EXAMINATION: XR CHEST CLINICAL INFORMATION: Shortness of breath COMPARISON: 05/02/2024 TECHNIQUE: Frontal view of the chest was obtained. FINDINGS: The heart is enlarged and there is new pulmonary vascular congestion with interstitial blurring. Bilateral pleural effusions have increased in size although the lung bases are not included on the radiograph. A left chest wall pacemaker remains in good position although the tip of the RV lead is not included. Suture anchors are present in both humeri. XR/XR chest 1V IMPRESSION: Cardiomegaly with CHF and increasing pleural effusions. Electronically signed by: Gerry Pulido MD 05/11/2024 06:06 PM [place]
--- NOTE | ~2024-05-11 | US_ITS ---
EXAMINATION: US ABDOMEN LIMITED CLINICAL INFORMATION: Transaminitis. COMPARISON: CT abdomen and pelvis 05/11/2024 TECHNIQUE: Real-time imaging of the right upper quadrant abdominal viscera. FINDINGS: PANCREAS: Pancreas was obscured by bowel gas and could not be seen LIVER: The liver is normal in size. The liver contour is normal. Parenchymal echogenicity is normal. There is a benign 1.6 cm hepatic cyst. No solid mass seen. There is no intrahepatic biliary duct dilatation seen. GALLBLADDER: The gallbladder is physiologically distended. Multiple small layering mobile gallstones are present. No evidence of gallbladder wall thickening or pericholecystic fluid. COMMON BILE DUCT: Not seen. RIGHT KIDNEY: Right kidney is small measuring 6.9 cm with multiple benign Bosniak class I cysts the largest measuring 4.8 cm . These need no follow-up. No hydronephrosis. No renal calculi or solid focal parenchymal lesions. FREE FLUID: None. US/US abdomen limited IMPRESSION: 1. Cholelithiasis without evidence of cholecystitis. 2. Small right kidney with benign cysts. Electronically signed by: Gerry Pulido MD 05/11/2024 10:47 PM EST
--- NOTE | 2024-05-11 16:56 | ECG_ITS ---
Test Reason : HEART SCREENING Blood Pressure : / mmHG Vent. Rate : 108 BPM Atrial Rate : 108 BPM P-R Int : 164 ms QRS Dur : 122 ms QT Int : 358 ms P-R-T Axes : 076 080 073 degrees QTc Int : 479 ms Sinus tachycardia Possible Left atrial enlargement Non-specific intra-ventricular conduction delay Borderline ECG When compared with ECG of 02-MAY-2024 04:58, Vent. rate has increased BY 45 BPM Non-specific change in ST segment in Anterior leads Nonspecific T wave abnormality no longer evident in Anterior leads Referred By: Judy Cr Electronically Signed By:JEAN CLAUDE HARP MD
--- NOTE | 2024-05-11 17:03 | ED_ITS ---
HPI - General Adult General Chief complaint: General Medical Stated complaint: SOB History of Present Illness ED Provider: Dr. Cr HPI narrative: 73 y/o M patient; PMH HFrEF, CAD, pAF on Eliquis, HLD, CKD, mood disorder; presents via EMS from home with report of worsening shortness of breath. The patient states for the last three days his shortness of breath has especially worsened. He otherwise denies: fever or chills, chest pain, nausea/vomiting, abdominal pain, chest pain, syncope. Chart review: Patient was recently admitted to this hospital on 05/02/2024 - 05/05/2024 to the ICU for CHF exacerbation with associated over diuresis. He temporarily required norepinphrine for blood pressure support. It was recommended patient remain longer in the hospital for medication titration but patient requested to be discharged to home. He has out-patient cardiology appointment scheduled for 05/15/2024. He was started on Midodrine. Related Data Home Medications ?Medication ?Instructions ?Recorded ?Confirmed omeprazole 20 mg capsule,delayed 20 mg PO DAILY@0630 04/25/24 05/11/24 release furosemide 40 mg tablet 40 mg PO DAILY 05/02/24 05/11/24 cephalexin 250 mg capsule 250 mg PO Q6H 05/11/24 05/11/24 Previous Rx's ?Medication ?Instructions ?Recorded sertraline 100 mg tablet 150 mg (1.5 x 100 mg) PO DAILY 90 08/15/23 days #135 tabs apixaban 5 mg tablet (Eliquis) 5 mg PO BID 90 days #180 tabs 10/20/23 levothyroxine 125 mcg tablet 125 mcg PO DAILY@0600 #90 tabs 12/11/23 ezetimibe 10 mg tablet 10 mg PO DAILY 90 days #90 tabs 12/25/23 betamethasone dipropionate 0.05 % 1 appl topical BID PRN skin 03/07/24 topical cream irritation #45 grams atorvastatin 80 mg tablet 80 mg PO BEDTIME 90 days #90 tabs 03/12/24 tamsulosin 0.4 mg capsule 0.4 mg PO BEDTIME 90 days #90 caps 03/12/24 midodrine 5 mg tablet 5 mg PO TID@0900,1300,1700 30 days 05/05/24 #90 tabs Allergies Allergy/AdvReac Type Severity Reaction Status Date / Time No Known Allergies Allergy Verified 05/11/24 17:04 Review of Systems 2 Review of Systems: Yes all other systems are reviewed and are negative [facility] Past Medical History Attestation statement: The following information was validated with the patient. 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 Congenital bilateral renal cysts Chronic renal insufficiency, stage IV (severe) BPH (benign prostatic hyperplasia) ASHD (arteriosclerotic heart disease) Metal foreign body in lower leg Myocardial infarct Surgical History Hx of rotator cuff surgery H/O colonoscopy Social History Social History Household Members: None Housing: Condominium Do you presently have visiting nurse or other home services: Yes Patient Tobacco Use Status: Former Tobacco user Years Smoked: quit 40 years ago Smoked in Last 30 Days: No e-Cigarette/Vaping Use: Never Used Second Hand Smoke Exposure: No Use of substances other than those prescribed or required for medical reasons: No Advance Directives: Yes Advance Directives on File: Yes Advance Directives Date on File: 03/16/23 Do you have a plan to hurt others: No Plan service: No Current occupational status: retired Cognitive needs: No Hearing needs: No Vision needs: No Physical Exam ED Vital Signs: Vital Signs - 24 hr 05/11/24 16:56 05/11/24 19:50 05/11/24 20:28 Temperature 98.0 F 97.7 F 98.2 F Pulse Rate 107 H 98 95 Respiratory Rate 26 H 23 H 28 H Blood Pressure 111/73 91/55 L 110/73 Pulse Oximetry 94 98 92 Oxygen Delivery Method Nasal Cannula Room Air Nasal Cannula Oxygen Flow Rate 3 05/11/24 21:04 Temperature 98.2 F Pulse Rate 96 Respiratory Rate 28 H Blood Pressure 104/70 Pulse Oximetry 95 Oxygen Delivery Method Nasal Cannula Oxygen Flow Rate 3 BMI result Body Mass Index 26.0 Patient is afebrile, tachycardic, 94% on 2L NC Const General: cooperative HENMT Head: Yes normal to inspection and Yes atraumatic Eyes General: appearance normal, both eyes and all related structures Pupils: Equal, round and reactive pupils present Neck Neck: Yes normal visual inspection, Yes full ROM, Yes supple and No tender Chest Chest palpation & inspection: normal inspection of the chest and normal palpation of entire chest wall Resp Other: Bilateral crackles in all palomares Effort & Inspection: able to speak in complete sentences Auscultation: crackles Cardio Rate: tachycardic Rhythm: regular rhythm Peripheral pulses: Peripheral pulses 2+ throughout GI Inspection: No Abdominal wall edema and No distended Palpation (GI): Soft to palpation, not firm, nontender, no guarding and not rigid Auscultation: normal bowel sounds Back/Spine/Pelvis Back: No back tenderness Neuro Cranial nerves: Yes Equal, round and reactive pupils present Course Course Course Narrative: Patient is afebrile, tachycardic, and mildly hypoxic requiring supplemental O2. Will obtain EKG, CXR, and laboratory studies. I suspect patient's tachycardia and tachypnea with mild hypoxia is due once again to CHF exacerbation. Patient has diffuse rhonchi present on exam. CXR with cardiomegaly with CHF and increasing pleural effusions. Reevaluation(s) Reevaluation #1: Labs reviewed. Severe derangements noted. No leukocytosis. Mild baseline anemia 9.9. INR 5.7. PT 66.7. Hco3 18. Anion gap 25. Cr 2.35 (previously 1.45 on 05/05/2024). LA 5.7. Total bili 5.5. Direct bili 2.4. AST 531. ALT 482. Ammonia 53. Troponin 39.9. BNP 2478 (prior 3046). Albumin 4.3. COVID/Flu/RSV negative. 1830: Given severe lab abnormalities - sepsis is on the differential. Blood cultures ordered. Lactic acid had previously been ordered. Providing Vancomycin and Zosyn for broad spectrum antibiotic coverage considering patient was recently discharged from this hospital. Ordered for US RUQ and CT Abdomen/Pelvis W/O Contrast. I will provide 250cc IVF due to creatinine elevation and possible concern last visit for over diuresis. However I am being judicial due to patient's severely reduced EF and recent congestive heart failure exacerbation. I discussed the case with GI. Recommend holding eliquis. Agree with US RUQ. Discussed admission with hospitalist who requested ICU consultation. ICU consulted. Plan: Transition care to Dr. Hall pending level of admission planning Condition: Guarded Medications Administered Generic Name Dose Route Start Last Admin Trade Name Freq PRN Reason Stop Dose Admin Lactated Ringer's 500 mls @ 250 mls/hr 05/11/24 19:38 05/11/24 20:24 Lr IVCONT 05/11/24 21:37 250 mls/hr .Q2H ONE Administration Vancomycin HCl 2,000 mg in 500 mls @ 250 mls/hr 05/11/24 20:00 05/11/24 20:52 Vancomycin/Ns IV 05/11/24 21:59 250 mls/hr ONCE ONE Administration Discontinued Medications Generic Name Dose Route Start Last Admin Trade Name Freq PRN Reason Stop Dose Admin Piperacillin Sod/Tazobactam 50 mls @ 100 mls/hr 05/11/24 19:43 05/11/24 20:52 Sod 3.375 gm/ Sodium Chloride IV 05/11/24 20:12 Infused ONCE ONE Infusion Medical Decision Making Lab Data 05/11/24 18:01 05/11/24 18:01 Labs: Lab Results 05/11/24 05/11/24 05/11/24 Range/Units 18:01 18:11 18:50 WBC 7.8 (4.8-10.8) X10*3/uL RBC 3.60 L (4.60-5.80) X10*6/uL Hgb 9.9 L (14.0-18.0) g/dl Hct 30.7 L (42.0-52.0) % MCV 85.3 (80.0-98.0) fL MCH 27.5 (27.0-33.0) pg MCHC 32.2 (31.0-36.0) g/dl RDW 16.1 H (11.0-16.0) % Plt Count 125 L (160-400) X10*3/uL MPV 12.2 (9.4-12.4) fL Immature Gran % (Auto) 1.5 H (0.0-0.4) % Neut % (Auto) 65.8 (45-73) % Lymph % (Auto) 7.1 L (20-40) % [place] % (Auto) 25.2 H (2-11) % Eos % (Auto) 0.3 (0-4) % Baso % (Auto) 0.1 (0-2) % Lymph # (Auto) 0.6 L (1.2-4.9) X10*3/uL [place] # (Auto) 2.0 H (0.1-1.2) X10*3/uL Eos # (Auto) 0.0 (0.0-0.4) X10*3/uL Baso # (Auto) 0.0 (0.0-0.2) X10*3/uL Abs Immat Gran (auto) 0.12 H (0.00-0.03) X10*3/uL Absolute Neuts (auto) 5.1 (2.0-8.3) x10*3/uL Absolute Nucleated RBC 0.000 (0.0-0.012) X10*3/uL Nucleated RBC % (auto) 0.0 (0.0-0.2) /100WBC Smear Tech's Comments VERIFIED PT 66.7 H (10.9-12.4) SEC INR 5.7 H* D (0.9-1.1) VBG pH 7.45 H (7.32-7.43) VBG pCO2 27 mmHg VBG pO2 132 mmHg VBG HCO3 19 L (22-26) mmol/L VBG O2 Saturation 100.0 % VBG Base Excess -3.1 mmol/L Sodium 140 (135-145) mmol/L Potassium 4.5 D (3.3-5.1) mmol/L Chloride 102 (96-108) mmol/L Carbon Dioxide 18 L (22-29) mmol/L Anion Gap 25 H (12-20) BUN 42 H (9-16) mg/dL Creatinine 2.35 H (0.5-1.4) mg/dL Estim Creat Clear Calc 29.8 Estimated GFR 27 Random Glucose 142 H (60-115) mg/dL Lactic Acid 5.7 H* 4.6 H* (0.5-2.0) mmol/L Lactic Acid F/U @ 2Hr (0.5-2.0) mmol/L Calcium 9.8 (8.4-10.2) mg/dL Total Bilirubin 5.5 H (0.0-1.0) mg/dL Direct Bilirubin 2.4 H (0.0-0.5) mg/dL AST 531 H (5-37) U/L ALT 482 H (0-40) U/L Alkaline Phosphatase 93 (39-117) U/L Ammonia 53 (13-55) umol/L Troponin I High Sens 39.9 H D (<3.5-35.0) ng/L B-Natriuretic Peptide 2478 H (<100) pg/mL Total Protein 7.3 (6.5-8.0) g/dL Albumin 4.3 (3.5-5.0) g/dL Acetaminophen < 3 (<30) mcg/mL Influenza Type A (PCR) NEGATIVE (Negative) Influenza Type B (PCR) NEGATIVE (Negative) RSV RNA Qual (PCR) NEGATIVE (Negative) SARS-CoV-2 RNA (RT-PCR) NEGATIVE (Negative) 05/11/24 Range/Units 20:18 WBC (4.8-10.8) X10*3/uL RBC (4.60-5.80) X10*6/uL Hgb (14.0-18.0) g/dl Hct (42.0-52.0) % MCV (80.0-98.0) fL MCH (27.0-33.0) pg MCHC (31.0-36.0) g/dl RDW (11.0-16.0) % Plt Count (160-400) X10*3/uL MPV (9.4-12.4) fL Immature Gran % (Auto) (0.0-0.4) % Neut % (Auto) (45-73) % Lymph % (Auto) (20-40) % [place] % (Auto) (2-11) % Eos % (Auto) (0-4) % Baso % (Auto) (0-2) % Lymph # (Auto) (1.2-4.9) X10*3/uL [place] # (Auto) (0.1-1.2) X10*3/uL Eos # (Auto) (0.0-0.4) X10*3/uL Baso # (Auto) (0.0-0.2) X10*3/uL Abs Immat Gran (auto) (0.00-0.03) X10*3/uL Absolute Neuts (auto) (2.0-8.3) x10*3/uL Absolute Nucleated RBC (0.0-0.012) X10*3/uL Nucleated RBC % (auto) (0.0-0.2) /100WBC Smear Tech's Comments PT (10.9-12.4) SEC INR (0.9-1.1) VBG pH (7.32-7.43) VBG pCO2 mmHg VBG pO2 mmHg VBG HCO3 (22-26) mmol/L VBG O2 Saturation % VBG Base Excess mmol/L Sodium (135-145) mmol/L Potassium (3.3-5.1) mmol/L Chloride (96-108) mmol/L Carbon Dioxide (22-29) mmol/L Anion Gap (12-20) BUN (9-16) mg/dL Creatinine (0.5-1.4) mg/dL Estim Creat Clear Calc Estimated GFR Random Glucose (60-115) mg/dL Lactic Acid (0.5-2.0) mmol/L Lactic Acid F/U @ 2Hr 3.4 H* (0.5-2.0) mmol/L Calcium (8.4-10.2) mg/dL Total Bilirubin (0.0-1.0) mg/dL Direct Bilirubin (0.0-0.5) mg/dL AST (5-37) U/L ALT (0-40) U/L Alkaline Phosphatase (39-117) U/L Ammonia (13-55) umol/L Troponin I High Sens (<3.5-35.0) ng/L B-Natriuretic Peptide (<100) pg/mL Total Protein (6.5-8.0) g/dL Albumin (3.5-5.0) g/dL Acetaminophen (<30) mcg/mL Influenza Type A (PCR) (Negative) Influenza Type B (PCR) (Negative) RSV RNA Qual (PCR) (Negative) SARS-CoV-2 RNA (RT-PCR) (Negative) Independent Interpretation I performed an independent interpretation of an: EKG Interpretation: ST 108BPM with IVCD. Radiology Impression Discussion of test interpretation with radiology: I have reviewed the radiologist's reading. Radiologist Impression: EXAMINATION: XR CHEST CLINICAL INFORMATION: Shortness of breath COMPARISON: 05/02/2024 TECHNIQUE: Frontal view of the chest was obtained. FINDINGS: The heart is enlarged and there is new pulmonary vascular congestion with interstitial blurring. Bilateral pleural effusions have increased in size although the lung bases are not included on the radiograph. A left chest wall pacemaker remains in good position although the tip of the RV lead is not included. Suture anchors are present in both humeri. XR/XR chest 1V IMPRESSION: Cardiomegaly with CHF and increasing pleural effusions. Electronically signed by: Gerry Pulido MD 05/11/2024 06:06 PM [facility] [place] Time Critical Care Time Critical Care Time: Yes Total Critical Care Time: 37 Attestation: Total critical care time: Approximately?37?minutes Due to a high probability of clinically significant, life threatening deterioration, the patient required my highest level of preparedness to intervene emergently and I personally spent this critical care time directly and personally managing the patient. This critical care time included obtaining a history; examining the patient; pulse oximetry; ordering and review of studies; arranging urgent treatment with development of a management plan; evaluation of patient's response to treatment; frequent reassessment; and, discussions with other providers. This critical care time was performed to assess and manage the high probability of imminent, life-threatening deterioration that could result in multi-organ failure. It was exclusive of separately billable procedures and treating other patients. Discharge Plan Discharge Clinical Impression: Demand ischemia, JOSEPHINE (acute kidney injury), Acute liver failure, Elevated INR, Acute exacerbation of CHF (congestive heart failure), Acidosis, lactic Patient Disposition: Admitted As Inpatient Print Language: Sinhala
[2024-05-11 18:13] LABS: Basophils Percent Auto 0.1 % (0-2); Eosinophils Percent Auto 0.3 % (0-4); Hematocrit 30.7 % (42.0-52.0); Hemoglobin 9.9 g/dl (14.0-18.0); Imm Gran Abs Auto 0.12 X10*3/uL (0.00-0.03); Imm Gran Pct Auto 1.5 % (0.0-0.4); Lymphocytes Absolute Auto 0.6 X10*3/uL (1.2-4.9); Lymphocytes Percent Auto 7.1 % (20-40); MANUAL DIFF FLAG SCAN; Mean Corpuscular HGB Conc 32.2 g/dl (31.0-36.0); Mean Corpuscular Hemoglobin 27.5 pg (27.0-33.0); Mean Corpuscular Volume 85.3 fL (80.0-98.0); Mean Platelet Volume 12.2 fL (9.4-12.4); Monocytes Percent Auto 25.2 % (2-11); Neutrophils Absolute Auto 5.1 x10*3/uL (2.0-8.3); Neutrophils Percent Auto 65.8 % (45-73); Platelet Count 125 X10*3/uL (160-400); Red Cell Distribution Width 16.1 % (11.0-16.0); SCAN SMEAR FLAG 1; White Blood Count 7.8 X10*3/uL (4.8-10.8)
[2024-05-11 18:15] LABS: VBG Base Excess -3.1 mmol/L; VBG HCO3 19 mmol/L (22-26); VBG pCO2 27 mmHg; VBG pH 7.45 (7.32-7.43); VBG pO2 132 mmHg
[2024-05-11 18:21] LABS: Venous Blood Gas Refer to POC result
[2024-05-11 18:27] LABS: Alanine Aminotransferase 482 U/L (0-40); Albumin Level 4.3 g/dL (3.5-5.0); Alkaline Phosphatase 93 U/L (39-117); Anion Gap 25 (12-20); Aspartate Amino Transferase 531 U/L (5-37); Bilirubin Direct 2.4 mg/dL (0.0-0.5); Bilirubin Total 5.5 mg/dL (0.0-1.0); Blood Urea Nitrogen 42 mg/dL (9-16); Calcium 9.8 mg/dL (8.4-10.2); Carbon Dioxide 18 mmol/L (22-29); Chloride 102 mmol/L (96-108); Creatinine Clr Calc Pharmacy 29.8; Estimated Glomerular Filt Rate 27; Glucose Random 142 mg/dL (60-115); Potassium 4.5 mmol/L (3.3-5.1); Sodium 140 mmol/L (135-145); Total Protein 7.3 g/dL (6.5-8.0)
[2024-05-11 18:32] LABS: B Type Natriuretic Peptide 2478 pg/mL (<100); Troponin-I High Sensitivity 39.9 ng/L (<3.5-35.0)
[2024-05-11 18:37] LABS: Lactic Acid 5.7 mmol/L (0.5-2.0)
[2024-05-11 18:40] LABS: SLIDE REVIEW VERIFIED
[2024-05-11 18:49] LABS: Influenza A PCR NEGATIVE (Negative); Influenza B PCR NEGATIVE (Negative); Resp Syncy Virus RNA Qual PCR NEGATIVE (Negative); SARS COV2 PCR INHOUSE NEGATIVE (Negative)
[2024-05-11 19:03] LABS: Ammonia 53 umol/L (13-55)
[2024-05-11 19:11] LABS: Prothrombin Time 66.7 SEC (10.9-12.4)
[2024-05-11 19:13] LABS: INTERNATIONAL NORM RATIO 5.7 (0.9-1.1)
[2024-05-11 19:16] LABS: Lactic Acid 4.6 mmol/L (0.5-2.0)
[2024-05-11 20:09] LABS: Reflex Lactate? Lactic Acid Added
[2024-05-11] MEDS: Piperacillin Sodium/Tazobactam 3.375 GM in 0.9 % Sodium Chloride 50 ML IV (20:20)
[2024-05-11] MEDS: Lactated Ringers 500 ML 250 ML IVCONT (20:24)
--- NOTE | 2024-05-11 20:40 | PC.NURSE ---
Sepsis protocol initiated at 2000. 30ml/kg was not ordered only 500ml LR ordered due to heart conditions.
[2024-05-11 20:45] LABS: Acetaminophen LAB < 3 mcg/mL (<30)
[2024-05-11] MEDS: vancomycin/NS 2,000 MG/500 ML PLAST..BAG 250 MG IV (20:52)
[2024-05-11 20:53] LABS: Reflex Lactate? Lactic Acid Added
[2024-05-11 20:57] LABS: ~Lactic Acid-LAB USE ONLY 3.4 mmol/L (0.5-2.0)
--- NOTE | 2024-05-11 21:10 | PHA.MEDREC ---
Addendum entered by Angel Kennedy RP 05/11/24 21:43: Med rec checked by [facility] Original Note: Pharmacy Consult ? Medication Reconciliation Pharmacy has completed the medication reconciliation. spoke to patient to confirm med list. David bishop he [place] [facility] [place] nothing has changed. Patient says he is not on Entresto 97-103 mg, Metoprolol succ 50 mg, and Spironolactone [address] put them on hold till he follows up with cardiology.
[2024-05-11 22:11] LABS: ~Lactic Acid-LAB USE ONLY 3.7 mmol/L (0.5-2.0)
[2024-05-11 22:27] LABS: Thyroid Stimulating Hormone 0.82 uIU/mL (0.32-4.0)
[2024-05-11 22:29] LABS: Reflex Lactate? 2 Y
--- NOTE | 2024-05-11 22:39 | PM.EVENT ---
Event Note Date of Service: 05/11/24 Event Note: I was asked to admit Mr. Horne who has hx HFrED 25-30% S/p ICD , moderate to severe MR recently admitted to ICU and discharged due to acute CHF. He returns today c/o worsening SOB and jaundice. On evaluation, Mr. Aguero seems to be very frustrated due to ongoing shortness of breath. He is off Entresto, metoprolol and spironolactone, and still taking furosemide (increased to 40 mg), midrodine and Eliquis. His last BPs are 88/53 and 96/66, RR >30, normal temp and mild tachycardia, currently on 2-3 L/min O2 NC. Looks acutely ill. Labs remarkable for markedly elevated LFTs, bili is 5.5, INR is 5.7, Lactic acid 5.7 (recent one 3.4) worsening creatinine 2.35, CO2 18, BNP 2,478, venous pH 7.45. CXR - CHF increasing pleural effusions. ECG sinus tachycardia. Tyelnol level <3. According to ED physician abdominal US was obtained per GI recommendations. ED tx: Vancomycin, Zosyn and NS 500 ml (only Zosyn administered so far). This patient is in multiorgan failure due to severe decompensated heart failure and severe MR. The patient will need to be admitted to the ICU for diuresis + inotropes. Time Spent With Patient Time: Total time managing care of this patient today ____ minutes.
[2024-05-11] MEDS: Furosemide 200 MG in 0.9 % Sodium Chloride 80 ML IVCONT (23:41)
--- NOTE | 2024-05-11 23:43 | W.MHC.ACPN ---
Advanced Care Planning Note Advanced Care Planning Note Discussed with: patient Time spent (in minutes): 15 Narrative: Pt's HCP reported Code Status to be DNR/DNI. It was changed during last admission. HCP to bring copy of MOLST in the morning. Mr Aguero who is alert and oriented x 3 stated that he does not want to have CPR. He does not want a tube down his throat. He would be amenable to a BiPap mask if medically necessary. Pt statements regarding code status witnessed by RN's Tatianna and Jerome. Code status changed to DNR/DNI.
--- NOTE | 2024-05-11 23:44 | P.HPCC_ITS ---
History of Present Illness Date of Service: 05/11/24 Attending physician on admission: Zulema Garcia Chief Complaint: Dyspnea Mr Aguero is a 73-year-old male with past medical history of ischemic cardiomyopathy with last TTE showing EF 25-30% and grade 2 diastolic dysfunction, history of CAD, history of?COPD, ischemic cardiomyopathy with last TTE showing EF 20-25% and grade 3 diastolic dysfunction, pulmonary hypertension, ICD in place, history of CAD, history of paroxysmal atrial fibrillation on Eliquis at home, hyperlipidemia, chronic kidney disease, BPH, hypothyroidism, mood disorder who presented for worsening shortness of breath over the last 3 days. He denies fever or chills, chest pain, nausea/vomiting, abdominal pain, chest pain, syncope.? He was recently admitted to this hospital on 05/02/2024 - 05/05/2024 to the ICU for CHF exacerbation with associated over diuresis resulting in hypotension, was briefly on pressor support and was started on oral midodrine before being transferred to the medical floor. Rehab was recommended on discharge but the pt declined and was discharged to home.? On arrival to the emergency room, the patient's blood pressure was 111/73, heart rate 107, temp 98.0, O2 sat 94% on 2L.? Laboratory data significant for 9.9, hematocrit 30.7, platelet 125, PTT 66.7, INR 5.7, BUN 42, creatinine 2.35, lactic acid initially 5.7, down to 3.7 after fluid administration, total bilirubin 5.5, direct bilirubin 2.4, AST 531, ALT 482, troponin 39.9, BNP 2478, acetaminophen level < 3. ? Hepatitis panel pending. Imaging: Chest x-ray showed cardiomegaly with CHF and increasing pleural effusions. Abdominal ultrasound: Cholelithiasis without evidence of cholecystitis. Small right kidney with benign cysts. Abdomen/pelvis CT:? 1.? Bibasilar groundglass changes with bronchial thickening and bilateral pleural effusions consistent with CHF. 2.? Enlarged fatty liver with mild splenomegaly. 3.? Cholelithiasis without cholecystitis. 4.? Streaky changes around the head of the pancreas. Please correlate with pancreatic enzymes. ED course:? The patient received 500 cc IVF.? He was treated empirically with vancomycin and Zosyn. Review of Systems 2 Review of Systems: Yes all other systems are reviewed and are negative Constitutional: Constitutional: Reports fatigue ENT: Reports Normal hearing present Cardiovascular: Cardiovascular: Denies chest pain, Denies Epigastric Pain, Denies leg edema, Reports dyspnea and Reports dyspnea on exertion Respiratory: Respiratory: Reports cough, Reports dyspnea and Reports dyspnea on exertion Gastrointestinal: Gastrointestinal: Denies abdominal pain Integumentary/Breasts: Skin/Breast: Denies rash and Denies sores Neurologic: Reports Normal hearing present Endocrine: Endocrine: Reports fatigue Hematologic/Lymphatic: Hematologic/Lymphatic: Denies no additional hematologic/lymphatic complaints [facility] Past Medical History Medical History HTN (hypertension) Chronic anemia Elevated cholesterol CAD (coronary artery disease) Paroxysmal atrial fibrillation Thrombocytopenia Systolic CHF Fatty liver Macular degeneration of right eye ICD (implantable cardioverter-defibrillator) in place Hypothyroid GERD (gastroesophageal reflux disease) Depression, major, 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 Congenital bilateral renal cysts Chronic renal insufficiency, stage IV (severe) BPH (benign prostatic hyperplasia) ASHD (arteriosclerotic heart disease) Metal foreign body in lower leg Myocardial infarct Surgical History Surgical History Hx of rotator cuff surgery H/O colonoscopy Social History Social History Household Members: None Housing: House Do you presently have visiting nurse or other home services: Yes Patient Tobacco Use Status: Former Tobacco user Years Smoked: quit 40 years ago e-Cigarette/Vaping Use: Never Used Second Hand Smoke Exposure: No Advance Directives Date on File: 03/16/23 service: No Current occupational status: retired Cognitive needs: No Hearing needs: No Vision needs: No Meds Allergies Allergy/AdvReac Type Severity Reaction Status Date / Time No Known Allergies Allergy Verified 05/11/24 17:04 Active Medications: Current Medications Furosemide 200 mg/ Sodium (Chloride) 100 mls @ 2.5 mls/hr IVCONT .Q24H YULIYA Last Admin: 05/11/24 23:41 Dose: 5 mg/hr, 2.5 mls/hr Home Medications ?Medication ?Instructions ?Recorded ?Confirmed ?Last Taken ?Type omeprazole 20 mg capsule,delayed 20 mg PO DAILY@0630 04/25/24 05/11/24 05/01/24 History release furosemide 40 mg tablet 40 mg PO DAILY 05/02/24 05/11/24 05/01/24 History cephalexin 250 mg capsule 250 mg PO Q6H 05/11/24 05/11/24 Unknown History Physical Exam 2 Vital Signs: Vital Signs: Last Vital Signs Temp 97.5 F 05/11/24 23:24 Pulse 92 05/11/24 23:43 Resp 22 H 05/11/24 23:43 BP 106/71 05/11/24 23:43 Pulse Ox 90 L 05/11/24 23:43 O2 Del Method Nasal Cannula 05/11/24 23:43 O2 Flow Rate 2 05/11/24 23:43 Oxygen Flow Rate 2 05/11/24 16:56 BMI result Body Mass Index 26.0 Const: General: cooperative, no acute distress and ill appearing O rientation/consciousness: patient oriented x3 HEENT: Head: Yes normocephalic and Yes atraumatic General nose exam: Normal external nose present (Nares patent, septum midline, sinuses nontender bilaterally.) Mouth: moist mucous membranes abnormal (dry) Eyes: General: appearance normal, both eyes and all related structures P upils: Equal, round and reactive pupils present Neck: Neck: Yes supple (no thyromegaly, trachea midline.) Carotids: normal carotid upstroke Resp: Effort & Inspection: able to speak in complete sentences and Actively coughing Auscultation: crackles bilateral throughout Cardio: Jugular venous distension: no JVD Rate: regular rate Rhythm: r egular rhythm Heart sounds: no gallops, no murmurs and no rubs Peripheral pulses: Peripheral pulses 2+ throughout GI: Palpation (GI): Soft to palpation (nondistended.) and nontender A uscultation: normal bowel sounds Skin: General skin exam: no rashes or lesions noted, dry skin, ecchymosis and jaundice Wounds: no wounds Neuro: General: patient oriented x3 Cranial nerves: Yes Equal, round and reactive pupils present and Yes Normal hearing present Cognition (Neuro): n ormal cognition Extrem: General: Yes full ROM, Yes capillary refill normal and Yes no clubbing, cyanosis or edema Psych: Mental Status: mental status grossly normal Speech and movement: N ormal speech and movement present and Clear speech present Affect: normal affect Attitude: cooperative Thought process: Normal thought process present Thought content: Normal thought content present Results Labs 05/12/24 05:04 05/12/24 05:04 Labs: Laboratory Results - last 24 hr 05/11/24 05/11/24 05/11/24 18:01 18:11 18:50 MCV 85.3 MCH 27.5 MCHC 32.2 RDW 16.1 H Plt Count 125 L MPV 12.2 Immature Gran % (Auto) 1.5 H Neut % (Auto) 65.8 Lymph % (Auto) 7.1 L [place] % (Auto) 25.2 H Eos % (Auto) 0.3 Baso % (Auto) 0.1 Lymph # (Auto) 0.6 L [place] # (Auto) 2.0 H Eos # (Auto) 0.0 Baso # (Auto) 0.0 Abs Immat Gran (auto) 0.12 H Absolute Neuts (auto) 5.1 Absolute Nucleated RBC 0.000 Nucleated RBC % (auto) 0.0 Smear Tech's Comments VERIFIED PT 66.7 H INR 5.7 H* D VBG pH 7.45 H VBG pCO2 27 VBG pO2 132 VBG HCO3 19 L VBG O2 Saturation 100.0 VBG Base Excess -3.1 Anion Gap 25 H Estim Creat Clear Calc 29.8 Estimated GFR 27 Random Glucose 142 H Lactic Acid 5.7 H* 4.6 H* Lactic Acid F/U @ 2Hr Calcium 9.8 Total Bilirubin 5.5 H Direct Bilirubin 2.4 H AST 531 H ALT 482 H Alkaline Phosphatase 93 Ammonia 53 Troponin I High Sens 39.9 H D B-Natriuretic Peptide 2478 H Total Protein 7.3 Albumin 4.3 TSH 0.82 Acetaminophen < 3 Influenza Type A (PCR) NEGATIVE Influenza Type B (PCR) NEGATIVE RSV RNA Qual (PCR) NEGATIVE SARS-CoV-2 RNA (RT-PCR) NEGATIVE 05/11/24 05/11/24 20:18 21:49 MCV MCH MCHC RDW Plt Count MPV Immature Gran % (Auto) Neut % (Auto) Lymph % (Auto) [place] % (Auto) Eos % (Auto) Baso % (Auto) Lymph # (Auto) [place] # (Auto) Eos # (Auto) Baso # (Auto) Abs Immat Gran (auto) Absolute Neuts (auto) Absolute Nucleated RBC Nucleated RBC % (auto) Smear Tech's Comments PT INR VBG pH VBG pCO2 VBG pO2 VBG HCO3 VBG O2 Saturation VBG Base Excess Anion Gap Estim Creat Clear Calc Estimated GFR Random Glucose Lactic Acid Lactic Acid F/U @ 2Hr 3.4 H* 3.7 H* Calcium Total Bilirubin Direct Bilirubin AST ALT Alkaline Phosphatase Ammonia Troponin I High Sens B-Natriuretic Peptide Total Protein Albumin TSH Acetaminophen Influenza Type A (PCR) Influenza Type B (PCR) RSV RNA Qual (PCR) SARS-CoV-2 RNA (RT-PCR) Imaging Radiologist's Impressions: Impressions Chest X-Ray 05/11/24 17:15 IMPRESSION: Cardiomegaly with CHF and increasing pleural effusions. Electronically signed by: Gerry Pulido MD 05/11/2024 06:06 PM EST RP Abdomen Ultrasound 05/11/24 19:48 IMPRESSION: 1. Cholelithiasis without evidence of cholecystitis. 2. Small right kidney with benign cysts. Electronically signed by: Gerry Pulido MD 05/11/2024 10:47 PM EST RP Abdomen/Pelvis CT 05/11/24 21:30 IMPRESSION: 1. Bibasilar groundglass changes with bronchial thickening and bilateral pleural effusions consistent with CHF. 2. Enlarged fatty liver with mild splenomegaly. 3. Cholelithiasis without cholecystitis. 4. Streaky changes around the head of the pancreas. Please correlate with pancreatic enzymes. 5. Other incidental findings as described above. Fleischner guidelines were followed. Electronically signed by: Gerry Pulido MD 05/11/2024 11:36 PM EST RP Assessment and Plan (1) Acute on chronic heart failure with reduced ejection fraction (HFrEF, <= 40%): Status: Acute (2) Acute hypotension: Status: Acute (3) JOSEPHINE (acute kidney injury): Status: Acute (4) Acute liver failure: Qualifiers: Hepatic coma status: without hepatic coma Qualified Code(s): K72.00 - Acute and subacute hepatic failure without coma Status: Acute (5) Elevated bilirubin: Status: Acute (6) Elevated INR: Status: Acute (7) Acidosis, lactic: Status: Acute (8) Chronic anemia: Status: Acute Plan 73-year-old male with past medical history of COPD, ischemic cardiomyopathy with last TTE showing EF 20-25% and grade 3 diastolic dysfunction, pulmonary hypertension, ICD in place, history of CAD, history of paroxysmal atrial fibrillation on Eliquis at home, hyperlipidemia, chronic kidney disease, BPH, hypothyroidism, mood disorder admitted for management of Cardiogenic shock. Neuro: ? No acute issues. Cardiac:? Underlying HFrEF, paroxysmal AFIB. Cardiogenic shock, hypotension likely due to worsening cardiac function. No source of infection identified. Cultures pending. Echocardiogram 05/03/24 EF 20-25% with grade 3 diastolic dysfunction, severe pulmonary hypertension, severely increased right ventricular size, probable moderate aortic stenosis. Judicial use of fluids due to severely reduced EF. Lasix gtt. Pressor as needed. Appreciate input from Cardiology. Pulmonary: Vascular congestion, increasing pleural effusions. Ween off supplemental oxygen as able. Renal: JOSEPHINE on CKD. Monitor renal indices and urine output. Endo: Underlying hypothyroidism. Continue home levothryoxine. GI: Transaminitis.? Hepatitis panel pending.? Monitor liver enzymes. ID:? Elevated lactic acid likely due to liver and/or kidney failure. Sepsis unlikely as there is no obvious source of infection. The patient received a total of 500ml of fluid in ER. Continue empiric antibiotics pending cultures. Heme/Onc: Chronic anemia. Patient appears to be at baseline. INR 5.7. Hold Eliquis. Psych:? No acute issues. Prophylaxis: pneumatic boots Diet: Cardiac Patient's care was discussed in detail with Dr. Garcia.? She is aware of all the above as well as the plan of care for this patient. Total time managing care of this patient today: 60 minutes.
[2024-05-11 23:52] LABS: Reflex Lactate? 2 Y
[2024-05-11 23:55] LABS: Phosphorus 4.1 mg/dL (2.7-4.5)
[2024-05-12] VITALS (7 sets, daily range): BP systolic 105–120; BP diastolic 66–79; PULSE 94–104; RESP 13–27; TEMP 37.5–37.7; O2SAT 92–98; BMI 26.1
[2024-05-12 00:10] LABS: ~Lactic Acid-LAB USE ONLY 3.9 mmol/L (0.5-2.0)
[2024-05-12 03:49] LABS: HBS Num1 206.23 mIU/mL (0-7.99); HBc Num1 0.16 S/CO (0.00-0.79); HBsAGNum1 0.32 S/CO (0.00-0.99); Hepatitis A Antibody IgM 0.18 Index (0-0.79); Hepatitis B Core Antibody Nonreactive (Nonreactive); Hepatitis B Surface Antigen Negative (Negative); ~Hepatitis A Antibody IgM Nonreactive (Nonreactive); ~Hepatitis B Surface Antibody REACTIVE (Nonreactive); ~Hepatitis C Antibody Nonreactive (Nonreactive)
[2024-05-12] MEDS: Piperacillin Sodium/Tazobactam 3.375 GM in 0.9 % Sodium Chloride 50 ML IV (05:22)
[2024-05-12 05:32] LABS: Basophils Percent Auto 0.3 % (0-2); Eosinophils Percent Auto 0.3 % (0-4); Hematocrit 30.3 % (42.0-52.0); Hemoglobin 9.9 g/dl (14.0-18.0); Imm Gran Abs Auto 0.23 X10*3/uL (0.00-0.03); Imm Gran Pct Auto 2.5 % (0.0-0.4); Lymphocytes Absolute Auto 0.8 X10*3/uL (1.2-4.9); Lymphocytes Percent Auto 8.4 % (20-40); MANUAL DIFF FLAG SCAN; Mean Corpuscular HGB Conc 32.7 g/dl (31.0-36.0); Mean Corpuscular Hemoglobin 27.7 pg (27.0-33.0); Mean Corpuscular Volume 84.6 fL (80.0-98.0); Mean Platelet Volume 11.8 fL (9.4-12.4); Monocytes Absolute Auto 2.3 X10*3/uL (0.1-1.2); Monocytes Percent Auto 25.5 % (2-11); NRBC Pct Auto 0.2 /100WBC (0.0-0.2); Neutrophils Absolute Auto 5.8 x10*3/uL (2.0-8.3); PLT CLUMP 1; Red Blood Count 3.58 X10*6/uL (4.60-5.80); Red Cell Distribution Width 16.3 % (11.0-16.0); SCAN SMEAR FLAG 1
[2024-05-12 05:33] LABS: White Blood Count 9.2 X10*3/uL (4.8-10.8)
[2024-05-12 05:46] LABS: Amylase 50 U/L (28-100)
[2024-05-12 05:49] LABS: Alanine Aminotransferase 780 U/L (0-40); Albumin Level 4.2 g/dL (3.5-5.0); Alkaline Phosphatase 99 U/L (39-117); Anion Gap 24 (12-20); Aspartate Amino Transferase 997 U/L (5-37); Bilirubin Total 5.6 mg/dL (0.0-1.0); Blood Urea Nitrogen 47 mg/dL (9-16); Calcium 9.9 mg/dL (8.4-10.2); Carbon Dioxide 20 mmol/L (22-29); Chloride 103 mmol/L (96-108); Creatinine Clr Calc Pharmacy 29.4; Estimated Glomerular Filt Rate 27; Glucose Random 123 mg/dL (60-115); Lipase 98 U/L (8-78); Magnesium 2.5 mg/dL (1.6-2.6); Platelet Count 120 X10*3/uL (160-400); Potassium 4.5 mmol/L (3.3-5.1); SLIDE REVIEW VERIFIED; Sodium 142 mmol/L (135-145); Total Protein 7.1 g/dL (6.5-8.0)
[2024-05-12] MEDS: Omeprazole 20 MG CAPSULE.DR PO (06:06)
[2024-05-12] MEDS: Levothyroxine Sodium 125 MCG TABLET PO (06:06)
--- NOTE | 2024-05-12 07:22 | PHA.PROG ---
Admission Date/Time: May 11, 2024 22:28 Indication: other Weight in k.4 kg Serum Creatinine - Last 168 Hours 05/11/24 05/12/24 18:01 05:04 Creatinine 2.35 H 2.38 H Estimated CrCl and GFR - Last 168 Hours 05/11/24 05/12/24 18:01 05:04 Estim Creat Clear Calc 29.8 29.4 Estimated GFR 27 27 Vancomycin Loading Dose: 2,000 mg Current Vancomycin Dosing Regimen: 750mg q24h Vancomycin Monitoring using AUC goal of 400 - 600 range with trough as surrogate marker: 465, predicted trough to be 15.9 Date and Time for next Vancomycin Level to be drawn: 05/12 @ 2100 Pharmacist Comments on Vancomycin Plan: very poor renal function, going to get trough before each dose Vancomycin dosing will take advantage of [employer] as a clinical decision support tool that uses Bayesian modeling to calculate individual patient's pharmacokinetic parameters and forecast the patient's drug concentration time course with the target goal AUC 24 range of 400 - 600 mg/L/hr.
--- NOTE | 2024-05-12 08:11 | PM.CCPN ---
Subjective Subjective Date of Service: 05/12/24 Interval History: admitted 05/11 PM d/t signs/symptoms c/f CHF exacerbation Critical Care Time (minutes): 0 Physical Exam Vital Signs: Vital Signs: Last Vital Signs Temp 99.7 F 05/12/24 07:00 Pulse 96 05/12/24 07:00 Resp 25 H 05/12/24 07:00 BP 115/79 05/12/24 07:00 Pulse Ox 93 05/12/24 07:00 O2 Del Method Nasal Cannula 05/12/24 07:00 O2 Flow Rate 2 05/12/24 07:00 Oxygen Flow Rate 2 05/11/24 16:56 BMI result Body Mass Index 26.1 Const: General: no acute distress, well developed, alert, awake and Physically active Orientation/consciousness: patient oriented x3 HEENT: Head: Yes normal to inspection, Yes normocephalic and Yes atraumatic Eyes: Other: appreciable scleral icterus Neck: Neck: Yes normal visual inspection, Yes full ROM, Yes no meningeal signs, Yes trachea midline and Yes supple Chest: Chest palpation & inspection: normal inspection of the chest Cardio: Rate: tachycardic Rhythm: regular rhythm GI: Inspection: Yes normal to inspection Skin: Other: appreciable jaundice throughout Neuro: General: patient oriented x3, tone normal, moves all extremities, no meningeal signs and no focal motor deficits Extrem: General: Yes normal to inspection Psych: Other: agitated, though appropriate Objective Data Labs 05/12/24 05:04 05/12/24 05:04 Labs: Laboratory Results - last 24 hr 05/11/24 05/11/24 05/11/24 18:01 18:11 18:50 WBC 7.8 RBC 3.60 L Hgb 9.9 L Hct 30.7 L MCV 85.3 MCH 27.5 MCHC 32.2 RDW 16.1 H Plt Count 125 L MPV 12.2 Immature Gran % (Auto) 1.5 H Neut % (Auto) 65.8 Lymph % (Auto) 7.1 L [place] % (Auto) 25.2 H Eos % (Auto) 0.3 Baso % (Auto) 0.1 Lymph # (Auto) 0.6 L [place] # (Auto) 2.0 H Eos # (Auto) 0.0 Baso # (Auto) 0.0 Abs Immat Gran (auto) 0.12 H Absolute Neuts (auto) 5.1 Absolute Nucleated RBC 0.000 Nucleated RBC % (auto) 0.0 Smear Tech's Comments VERIFIED PT 66.7 H INR 5.7 H* D VBG pH 7.45 H VBG pCO2 27 VBG pO2 132 VBG HCO3 19 L VBG O2 Saturation 100.0 VBG Base Excess -3.1 Sodium 140 Potassium 4.5 D Chloride 102 Carbon Dioxide 18 L Anion Gap 25 H BUN 42 H Creatinine 2.35 H Estim Creat Clear Calc 29.8 Estimated GFR 27 Random Glucose 142 H Lactic Acid 5.7 H* 4.6 H* Lactic Acid F/U @ 2Hr Lactic Acid F/U @ 4Hr Calcium 9.8 Phosphorus 4.1 Magnesium Total Bilirubin 5.5 H Direct Bilirubin 2.4 H AST 531 H ALT 482 H Alkaline Phosphatase 93 Ammonia 53 Troponin I High Sens 39.9 H D B-Natriuretic Peptide 2478 H Total Protein 7.3 Albumin 4.3 Amylase Lipase TSH 0.82 Acetaminophen < 3 Hepatitis A IgM Ab Nonreactive Hep Bs Antigen Negative Hep Bs Antibody REACTIVE Hep B Core Total Ab Nonreactive Hepatitis C Ab (EIA) Nonreactive Influenza Type A (PCR) NEGATIVE Influenza Type B (PCR) NEGATIVE RSV RNA Qual (PCR) NEGATIVE SARS-CoV-2 RNA (RT-PCR) NEGATIVE 05/11/24 05/11/24 05/11/24 20:18 21:49 23:46 WBC RBC Hgb Hct MCV MCH MCHC RDW Plt Count MPV Immature Gran % (Auto) Neut % (Auto) Lymph % (Auto) [place] % (Auto) Eos % (Auto) Baso % (Auto) Lymph # (Auto) [place] # (Auto) Eos # (Auto) Baso # (Auto) Abs Immat Gran (auto) Absolute Neuts (auto) Absolute Nucleated RBC Nucleated RBC % (auto) Smear Tech's Comments PT INR VBG pH VBG pCO2 VBG pO2 VBG HCO3 VBG O2 Saturation VBG Base Excess Sodium Potassium Chloride Carbon Dioxide Anion Gap BUN Creatinine Estim Creat Clear Calc Estimated GFR Random Glucose Lactic Acid Lactic Acid F/U @ 2Hr 3.4 H* 3.7 H* Lactic Acid F/U @ 4Hr 3.9 H* Calcium Phosphorus Magnesium Total Bilirubin Direct Bilirubin AST ALT Alkaline Phosphatase Ammonia Troponin I High Sens B-Natriuretic Peptide Total Protein Albumin Amylase Lipase TSH Acetaminophen Hepatitis A IgM Ab Hep Bs Antigen Hep Bs Antibody Hep B Core Total Ab Hepatitis C Ab (EIA) Influenza Type A (PCR) Influenza Type B (PCR) RSV RNA Qual (PCR) SARS-CoV-2 RNA (RT-PCR) 05/12/24 05:04 WBC 9.2 RBC 3.58 L Hgb 9.9 L Hct 30.3 L MCV 84.6 MCH 27.7 MCHC 32.7 RDW 16.3 H Plt Count 120 L MPV 11.8 Immature Gran % (Auto) 2.5 H Neut % (Auto) 63.0 Lymph % (Auto) 8.4 L [place] % (Auto) 25.5 H Eos % (Auto) 0.3 Baso % (Auto) 0.3 Lymph # (Auto) 0.8 L [place] # (Auto) 2.3 H Eos # (Auto) 0.0 Baso # (Auto) 0.0 Abs Immat Gran (auto) 0.23 H Absolute Neuts (auto) 5.8 Absolute Nucleated RBC 0.020 H Nucleated RBC % (auto) 0.2 Smear Tech's Comments VERIFIED PT INR VBG pH VBG pCO2 VBG pO2 VBG HCO3 VBG O2 Saturation VBG Base Excess Sodium 142 Potassium 4.5 Chloride 103 Carbon Dioxide 20 L Anion Gap 24 H BUN 47 H Creatinine 2.38 H Estim Creat Clear Calc 29.4 Estimated GFR 27 Random Glucose 123 H Lactic Acid Lactic Acid F/U @ 2Hr Lactic Acid F/U @ 4Hr Calcium 9.9 Phosphorus Magnesium 2.5 Total Bilirubin 5.6 H Direct Bilirubin AST 997 H ALT 780 H Alkaline Phosphatase 99 Ammonia Troponin I High Sens B-Natriuretic Peptide Total Protein 7.1 Albumin 4.2 Amylase 50 Lipase 98 H TSH Acetaminophen Hepatitis A IgM Ab Hep Bs Antigen Hep Bs Antibody Hep B Core Total Ab Hepatitis C Ab (EIA) Influenza Type A (PCR) Influenza Type B (PCR) RSV RNA Qual (PCR) SARS-CoV-2 RNA (RT-PCR) Progress Note: A&P Assessment and plan (1) Acute exacerbation of CHF (congestive heart failure): Status: Acute (2) JOESPHINE (acute kidney injury): Status: Acute (3) Acute liver failure: Status: Acute Plan Patient is a 73 Y M w/ hyperlipidemia c/b CAD c/b HFrEF 25%, paroxysmal atrial fibrillation on apixaban, pulmonary hypertension, chronic renal insufficiency, and hypothyroidsim, w/ recent admission 05/02-05/05 for CHF exacerbation, re-presenting to emergency department on 05/12 w/ dyspnea, found to have acute on chronic renal insufficiency and acute hepatic failure c/f CHF exacerbation, admitted ICU for further management N: no acute issues CV: extensive cardiovascular disease, including HFrEF 25%, atrial fibrillation; intermittent hypotension, vasopressors PRN R: acute hypoxia, likely d/t CHF exacerbation, oxygen supplementation as needed GI: acute hepatic failure, worsening; c/f pancreatic edema, likely d/t CHF exacerbation, to monitor closely; cardiac diet w/ fluid restriction : acute on chronic renal insufficiency, to monitor renal indices, electrolytes very closely; volume overload, furosemide gtt H: elevated INR, likely d/t hepatic failure; to hold home apixaban ID: in setting of hypotension, empiric vancomycin/zosyn; to follow-up UA, BCx E: hypothyroidism on home levothyroxine P: no acute issues S: of note, patient reports DNR/DNI during goals of care conversation 05/11 PM Quality Stroke Does the patient have a stroke diagnosis?: No VTE Prior VTE?: No VTE Risk Level:: Medical - moderate - high VTE Device Contraindication: N/A - Device Ordered VTE Drug Contraindication: Treatment Not Tolerated
--- NOTE | 2024-05-12 08:46 | PM.DS ---
DS: Providers Provider Date of Service: 05/12/24 Date of admission: 05/11/24 22:28 Date of discharge: 05/12/24 [facility] Admitting clinician: Zulema Garcia Attending physician on discharge: Zulema Garcia DS: Diagnosis Discharge Diagnosis (1) Acute exacerbation of CHF (congestive heart failure): Status: Acute (2) JOSEPHINE (acute kidney injury): Status: Acute (3) Acute liver failure: Status: Acute DS: Summary Status at Discharge Functional status at discharge: independent ambulation Overall status at discharge: patient is back to baseline Time Attestation Total time managing care of this patient today: 60 mintues. Discharge Coordination Time (in mins): 30 Quality: Safe Use of Opioids Does Pt have an Active Cancer Diagnosis on the Problem List?: No Quality: Stroke Does the patient have a stroke diagnosis?: No Physical Exam Vital Signs: Vital Signs: Last Vital Signs Temp 99.7 F 05/12/24 07:00 Pulse 96 05/12/24 07:00 Resp 25 H 05/12/24 07:00 BP 115/79 05/12/24 07:00 Pulse Ox 93 05/12/24 07:00 O2 Del Method Nasal Cannula 05/12/24 08:00 O2 Flow Rate 2 05/12/24 07:00 Oxygen Flow Rate 2 05/11/24 16:56 BMI result Body Mass Index 26.1 Const: General: comfortable, no acute distress, well developed, alert, awake and Physically active Orientation/consciousness: patient oriented x3 HEENT: Head: Yes normal to inspection, Yes normocephalic and Yes atraumatic Eyes: General: appearance normal, both eyes and all related structures Neck: Neck: Yes normal visual inspection, Yes full ROM, Yes no meningeal signs, Yes trachea midline and Yes supple Chest: Chest palpation & inspection: normal inspection of the chest Cardio: Rate: regular rate Rhythm: regular rhythm GI: Inspection: Yes normal to inspection Skin: Other: appreciable jaundice throughout Neuro: General: patient oriented x3, tone normal, moves all extremities, no meningeal signs and no focal motor deficits Extrem: General: Yes normal to inspection Psych: Appearance: grossly normal DS: Data Data Completed and Pending Completed studies during hospitalization [Text1]: Procedures Introduction of Vasopressor into Peripheral Vein, Percutaneous Approach (05/02/24) Labs on day of discharge: Laboratory Results - last 24 hr 05/11/24 05/11/24 05/11/24 18:01 18:11 18:50 WBC 7.8 RBC 3.60 L Hgb 9.9 L Hct 30.7 L MCV 85.3 MCH 27.5 MCHC 32.2 RDW 16.1 H Plt Count 125 L MPV 12.2 Immature Gran % (Auto) 1.5 H Neut % (Auto) 65.8 Lymph % (Auto) 7.1 L [place] % (Auto) 25.2 H Eos % (Auto) 0.3 Baso % (Auto) 0.1 Lymph # (Auto) 0.6 L [place] # (Auto) 2.0 H Eos # (Auto) 0.0 Baso # (Auto) 0.0 Abs Immat Gran (auto) 0.12 H Absolute Neuts (auto) 5.1 Absolute Nucleated RBC 0.000 Nucleated RBC % (auto) 0.0 Smear Tech's Comments VERIFIED PT 66.7 H INR 5.7 H* D VBG pH 7.45 H VBG pCO2 27 VBG pO2 132 VBG HCO3 19 L VBG O2 Saturation 100.0 VBG Base Excess -3.1 Sodium 140 Potassium 4.5 D Chloride 102 Carbon Dioxide 18 L Anion Gap 25 H BUN 42 H Creatinine 2.35 H Estim Creat Clear Calc 29.8 Estimated GFR 27 Random Glucose 142 H Lactic Acid 5.7 H* 4.6 H* Lactic Acid F/U @ 2Hr Lactic Acid F/U @ 4Hr Calcium 9.8 Phosphorus 4.1 Magnesium Total Bilirubin 5.5 H Direct Bilirubin 2.4 H AST 531 H ALT 482 H Alkaline Phosphatase 93 Ammonia 53 Troponin I High Sens 39.9 H D B-Natriuretic Peptide 2478 H Total Protein 7.3 Albumin 4.3 Amylase Lipase TSH 0.82 Acetaminophen < 3 Hepatitis A IgM Ab Nonreactive Hep Bs Antigen Negative Hep Bs Antibody REACTIVE Hep B Core Total Ab Nonreactive Hepatitis C Ab (EIA) Nonreactive Influenza Type A (PCR) NEGATIVE Influenza Type B (PCR) NEGATIVE RSV RNA Qual (PCR) NEGATIVE SARS-CoV-2 RNA (RT-PCR) NEGATIVE 05/11/24 05/11/24 05/11/24 20:18 21:49 23:46 WBC RBC Hgb Hct MCV MCH MCHC RDW Plt Count MPV Immature Gran % (Auto) Neut % (Auto) Lymph % (Auto) [place] % (Auto) Eos % (Auto) Baso % (Auto) Lymph # (Auto) [place] # (Auto) Eos # (Auto) Baso # (Auto) Abs Immat Gran (auto) Absolute Neuts (auto) Absolute Nucleated RBC Nucleated RBC % (auto) Smear Tech's Comments PT INR VBG pH VBG pCO2 VBG pO2 VBG HCO3 VBG O2 Saturation VBG Base Excess Sodium Potassium Chloride Carbon Dioxide Anion Gap BUN Creatinine Estim Creat Clear Calc Estimated GFR Random Glucose Lactic Acid Lactic Acid F/U @ 2Hr 3.4 H* 3.7 H* Lactic Acid F/U @ 4Hr 3.9 H* Calcium Phosphorus Magnesium Total Bilirubin Direct Bilirubin AST ALT Alkaline Phosphatase Ammonia Troponin I High Sens B-Natriuretic Peptide Total Protein Albumin Amylase Lipase TSH Acetaminophen Hepatitis A IgM Ab Hep Bs Antigen Hep Bs Antibody Hep B Core Total Ab Hepatitis C Ab (EIA) Influenza Type A (PCR) Influenza Type B (PCR) RSV RNA Qual (PCR) SARS-CoV-2 RNA (RT-PCR) 05/12/24 05:04 WBC 9.2 RBC 3.58 L Hgb 9.9 L Hct 30.3 L MCV 84.6 MCH 27.7 MCHC 32.7 RDW 16.3 H Plt Count 120 L MPV 11.8 Immature Gran % (Auto) 2.5 H Neut % (Auto) 63.0 Lymph % (Auto) 8.4 L [place] % (Auto) 25.5 H Eos % (Auto) 0.3 Baso % (Auto) 0.3 Lymph # (Auto) 0.8 L [place] # (Auto) 2.3 H Eos # (Auto) 0.0 Baso # (Auto) 0.0 Abs Immat Gran (auto) 0.23 H Absolute Neuts (auto) 5.8 Absolute Nucleated RBC 0.020 H Nucleated RBC % (auto) 0.2 Smear Tech's Comments VERIFIED PT INR VBG pH VBG pCO2 VBG pO2 VBG HCO3 VBG O2 Saturation VBG Base Excess Sodium 142 Potassium 4.5 Chloride 103 Carbon Dioxide 20 L Anion Gap 24 H BUN 47 H Creatinine 2.38 H Estim Creat Clear Calc 29.4 Estimated GFR 27 Random Glucose 123 H Lactic Acid Lactic Acid F/U @ 2Hr Lactic Acid F/U @ 4Hr Calcium 9.9 Phosphorus Magnesium 2.5 Total Bilirubin 5.6 H Direct Bilirubin AST 997 H ALT 780 H Alkaline Phosphatase 99 Ammonia Troponin I High Sens B-Natriuretic Peptide Total Protein 7.1 Albumin 4.2 Amylase 50 Lipase 98 H TSH Acetaminophen Hepatitis A IgM Ab Hep Bs Antigen Hep Bs Antibody Hep B Core Total Ab Hepatitis C Ab (EIA) Influenza Type A (PCR) Influenza Type B (PCR) RSV RNA Qual (PCR) SARS-CoV-2 RNA (RT-PCR) Discharge Plan Discharge Patient Disposition: Left Against Medical Advice Discharge Diagnosis: CHF Exacerbation Referrals: Karthikeyan Evans, [facility]- [Primary Care Provider] - 1 Week Discharge Medications: No Action sertraline 100 mg tablet 150 mg PO DAILY 90 Days Qty: 135 3RF Eliquis 5 mg tablet 5 mg PO BID 90 Days Qty: 180 3RF levothyroxine 125 mcg tablet 125 mcg PO DAILY@0600 Qty: 90 1RF ezetimibe 10 mg tablet 10 mg PO DAILY 90 Days Qty: 90 1RF betamethasone dipropionate 0.05 % cream 1 appl topical BID PRN (Reason: skin irritation) Qty: 45 1RF tamsulosin 0.4 mg capsule 0.4 mg PO BEDTIME 90 Days Qty: 90 3RF atorvastatin 80 mg tablet 80 mg PO BEDTIME 90 Days Qty: 90 3RF omeprazole 20 mg capsule,delayed release(DR/EC) 20 mg PO DAILY@0630 cephalexin 250 mg capsule 250 mg PO Q6H furosemide 40 mg tablet 40 mg PO DAILY midodrine 5 mg Tablet 5 mg PO TID@0900,1300,1700 30 Days Qty: 90 0RF Discharge Orders: Discharge Order (Routine); Ordered 05/12/24 Ordered By: Zulema Garcia Diet: Low salt diet Activity on Discharge: As tolerated Print Language: [place] Care Plan Goals: You came to the hospital due to shortness of breath. We performed labs on you that were suggestive of a CHF exacerbation, that is complicated by renal failure and liver failure. You were admitted to the ICU for medications including diuretics to attempt to alleviate your CHF exacerbation. You preferred to go home, against medical advice. We discussed that you make become sicker, or even at home. Please come back to the emergency department at any point in time, especially if you have any worsening of your symptoms, or any questions or concerns. We encourage you to keep taking your medications, especially your diuretic, furosemide. Again, we are more than happy to continue caring for you in the hospital if you so choose. Health Concerns: You came to the hospital due to shortness of breath. We performed labs on you that were suggestive of a CHF exacerbation, that is complicated by renal failure and liver failure. You were admitted to the ICU for medications including diuretics to attempt to alleviate your CHF exacerbation. You preferred to go home, against medical advice. We discussed that you make become sicker, or even at home. Please come back to the emergency department at any point in time, especially if you have any worsening of your symptoms, or any questions or concerns. We encourage you to keep taking your medications, especially your diuretic, furosemide. Again, we are more than happy to continue caring for you in the hospital if you so choose. Plan of Treatment: You came to the hospital due to shortness of breath. We performed labs on you that were suggestive of a CHF exacerbation, that is complicated by renal failure and liver failure. You were admitted to the ICU for medications including diuretics to attempt to alleviate your CHF exacerbation. You preferred to go home, against medical advice. We discussed that you make become sicker, or even at home. Please come back to the emergency department at any point in time, especially if you have any worsening of your symptoms, or any questions or concerns. We encourage you to keep taking your medications, especially your diuretic, furosemide. Again, we are more than happy to continue caring for you in the hospital if you so choose. Assessment: You came to the hospital due to shortness of breath. We performed labs on you that were suggestive of a CHF exacerbation, that is complicated by renal failure and liver failure. You were admitted to the ICU for medications including diuretics to attempt to alleviate your CHF exacerbation. You preferred to go home, against medical advice. We discussed that you make become sicker, or even at home. Please come back to the emergency department at any point in time, especially if you have any worsening of your symptoms, or any questions or concerns. We encourage you to keep taking your medications, especially your diuretic, furosemide. Again, we are more than happy to continue caring for you in the hospital if you so choose. Patient Instructions: Heart Failure (GEN)
--- NOTE | 2024-05-12 09:06 | MHC.CM.PN ---
IMM DELIVERED. PT IS LEAVING AMA, DECLINES DISCUSSION WITH CM REGARDING PLAN. I JUST WANT TO GO HOME . PER PT, HCP ON WAY TO BRING HOME.
--- NOTE | 2024-05-12 10:55 | PC.NURSE ---
08:45 Dr. Garcia at patient bedside to provide education and updates on health status. Pt states, I just want to be home. I want to go home today. provided information about health status about heart failure, need for IV lasix. Pt states he does not want to wear playground monitor and does not want medications, wants to go home. Pt wants to leave AMA. Pt is A+Ox4. 09:00 Pt signed AMA form with 2 RN witnesses. Plan for car ride home from brother. Forrester removed. Pt agreeable IV lasix gtt continued at this time. 09:15 recruitment advertising manager at pt bedside to provide options for hospice care. Pt states he does not want hospice at this time. 10:00 Pt Brother arrived. Pt asked for IV removal. Lasix gtt stopped at this time. Pt used commode and transferred to wheelchair. Pt went home with car ride home from [place].
== END 2024-05-12 10:30 | disposition left against medical advice (07) | DRG 291 ==
LOC: HO.ED 20:54 → HO.EDOVER 22:29 → HO.ICU 23:01
PROVIDERS: Internal Medicine; Admitting Provider Nurse Practitioner Family; Emergency Provider Emergency Medicine; PCP Nurse Practitioner Family; Visit Provider Internal Medicine Critical Care Medicine
DX: I50.23 Acute on chronic systolic (congestive) heart failure (principal); K72.00 Acute and subacute hepatic failure without coma; R57.0 Cardiogenic shock; N17.9 Acute kidney failure, unspecified; I25.10 Atherosclerotic heart disease of native coronary artery without angina pectoris; I48.0 Paroxysmal atrial fibrillation; J44.9 Chronic obstructive pulmonary disease, unspecified; N40.0 Benign prostatic hyperplasia without lower urinary tract symptoms; K76.0 Fatty (change of) liver, not elsewhere classified; Z95.810 Presence of automatic (implantable) cardiac defibrillator; Z66 Do not resuscitate; I27.20 Pulmonary hypertension, unspecified; N18.9 Chronic kidney disease, unspecified; E03.9 Hypothyroidism, unspecified; I25.5 Ischemic cardiomyopathy; Z20.822 Contact with and (suspected) exposure to COVID-19; D63.1 Anemia in chronic kidney disease; E78.5 Hyperlipidemia, unspecified; I34.0 Nonrheumatic mitral (valve) insufficiency; Z87.891 Personal history of nicotine dependence; Z79.01 Long term (current) use of anticoagulants; Z79.890 Hormone replacement therapy; Z79.899 Other long term (current) drug therapy
CPT/HCPCS: 0241U; 36415; 71045; 74176; 76705; 80048; 80053; 80076; 80143; 82140; 82150; 82803; 83605; 83690; 83735; 83880; 84100; 84443; 84484; 85025; 85610; 86704; 86706; 86709; 86803; 87040; 87340; 93005; 99285; C1758; J1940; J2543; J3370; J7120

== ENCOUNTER → 2024-05-11 16:56 | Outpatient (BNV) | payer MEDICARE, SELFPAY | PROVIDERS: Admitting Provider Nurse Practitioner Family; Emergency Provider Emergency Medicine; PCP Nurse Practitioner Family; Visit Provider Internal Medicine Cardiovascular Disease | DX: R00.0 Tachycardia, unspecified (principal) | CPT/HCPCS: 93010 ==

== ENCOUNTER → 2024-05-11 22:28 | Outpatient (BNV) | payer MEDICARE, SELFPAY | PROVIDERS: Admitting Provider Nurse Practitioner Family; Emergency Provider Emergency Medicine; PCP Nurse Practitioner Family; Visit Provider Nurse Practitioner Family | DX: N17.9 Acute kidney failure, unspecified (principal); I50.23 Acute on chronic systolic (congestive) heart failure; I50.9 Heart failure, unspecified; I95.9 Hypotension, unspecified; K72.00 Acute and subacute hepatic failure without coma; Z53.29 Procedure and treatment not carried out because of patient's decision for other reasons | CPT/HCPCS: 99223; 99239; 99497; 99499 ==

== ENCOUNTER → 2024-05-15 20:39 | Outpatient (BNVA) | payer MEDICARE, SELFPAY | PROVIDERS: PCP Nurse Practitioner Family ==